=== PATIENT | male | born 1935 | race Caucasian/White ===

== ENCOUNTER 2018-05-30 19:29 | Observation (INO) | payer OTHER, MEDICARE ==
[~2018-05-30] VITALS: Ht 180.3 cm; Wt 73.2 kg
[2018-05-30] MEDS ORDERED: TETANUS,DIPTH,PERTUSS P/F (BOOSTRIX) 0.5 ML VIAL IM ONE (19:47)
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
[2018-05-30] MEDS ORDERED: RECEIVED CONTRAST (Hold Metformin) IV SCH (20:15)
[2018-05-30] MEDS ORDERED: NS 250 ML (IVPB) BAG IV ONE (20:15)
[2018-05-30] MEDS ORDERED: IOHEXOL 350 MG/ML 100 ML (OMNIPAQUE 350) VIAL IV ONE (20:15)
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
[2018-05-30 20:24] LABS: HEMOGLOBIN 13.1 G/DL (13.3-17.7); MEAN PLATELET VOLUME 9.4 FL (7.4-10.4); RED BLOOD COUNT 4.33 10^6/uL (4.35-5.85); RED CELL DISTRIBUTION WIDTH 13.6 % (10.0-14.5); WHITE BLOOD COUNT 10.1 10^3/uL (4.3-11.0)
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
[2018-05-30 20:37] LABS: FIBRIN DEGRADATION PRODUCTS 2.35 UG/ML (0.00-0.49); INR 1.1 (0.8-1.4); PROTHROMBIN TIME PATIENT 14.3 SEC (12.2-14.7)
[2018-05-30 20:39] LABS: ABG OXYGEN SATURATION 99 % (94-100); ABG PO2 112 MMHG (79-93); ABG TCO2 19.3 MMOL/L (21.0-31.0)
[2018-05-30 20:41] LABS: ABG PCO2 16 MMHG (35-45); ABG PH 7.67 (7.37-7.43); ALLENS TEST YES-POS; INSPIRED O2 2L
[2018-05-30 20:42] LABS: PATIENT TEMP 99.1; VENTILATOR NO
[2018-05-30 20:42] LABS: BILIRUBIN,URINE NEGATIVE (NEGATIVE); CLARITY,URINE CLEAR; COLOR,URINE YELLOW; GLUCOSE, URINE (UA) NEGATIVE (NEGATIVE); KETONES,URINE 2+ (NEGATIVE); LEUKOCYTE ESTERASE ,URINE 1+ (NEGATIVE); NITRITE,URINE NEGATIVE (NEGATIVE); PH,URINE 9 (5-9); PROTEIN,URINE 1+ (NEGATIVE); UROBILINOGEN,URINE NORMAL (NORMAL)
[2018-05-30 20:43] LABS: ALANINE AMINOTRANSFERASE 19 U/L (0-55); ALBUMIN 3.7 GM/DL (3.2-4.5); ALKALINE PHOSPHATASE 75 U/L (40-136); BILIRUBIN,DIRECT 0.3 MG/DL (0.0-0.3); BILIRUBIN,INDIRECT 0.3 MG/DL; BILIRUBIN,TOTAL 0.6 MG/DL (0.1-1.0); BUN/CREATININE RATIO 19; CARBON DIOXIDE 17 MMOL/L (21-32); CHLORIDE 108 MMOL/L (98-107); CREATININE SERUM 0.86 MG/DL (0.60-1.30); GFR ESTIMATED > 60; GLUCOSE 115 MG/DL (70-105); MAGNESIUM 1.8 MG/DL (1.8-2.4); PHOSPHORUS 1.1 MG/DL (2.3-4.7); POTASSIUM 3.4 MMOL/L (3.6-5.0); SODIUM 138 MMOL/L (135-145); TOTAL PROTEIN 6.6 GM/DL (6.4-8.2)
[2018-05-30] MEDS ORDERED: fentaNYL INJECTION 100 MCG/2 ML AMP IVP STA ×2 (20:48→21:06)
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
[2018-05-30 21:00] LABS: AMPHETAMINE SCREEN, URINE NEGATIVE (NEGATIVE); BACTERIA,URINE NEGATIVE /HPF; BARBITURATE SCREEN URINE NEGATIVE (NEGATIVE); BENZODIAZEPINES SCREEN URINE NEGATIVE (NEGATIVE); CANNABINOID SCREEN, URINE NEGATIVE (NEGATIVE); COCAINE SCREEN URINE NEGATIVE (NEGATIVE); METHADONE STAT NEGATIVE (NEGATIVE); METHAMPHETAMINE SCREEN URINE S NEGATIVE (NEGATIVE); OPIATE SCREEN URINE NEGATIVE (NEGATIVE); OXYCODONE STAT NEGATIVE (NEGATIVE); PROPOXYPHENE STAT NEGATIVE (NEGATIVE); TRICYCLIC ANTIDEPRESSANTS SCRE NEGATIVE (NEGATIVE); WBC,URINE 0-2 /HPF
[2018-05-30] MEDS ORDERED: fentaNYL INJECTION 100 MCG/2 ML AMP IVP PRN (21:30)
[2018-05-30] MEDS ORDERED: HYDROcodone/APAP 5 MG/325 MG (LORTAB) TAB PO PRN (21:30)
[2018-05-30] MEDS ORDERED: ONDANSETRON 4 MG/2 ML (SDV) Z0FRAN IVP PRN (21:30)
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
[2018-05-30] MEDS ORDERED: LORazepam INJ 2 MG/ML (ATIVAN) VIAL IVP ONE (22:00)
[2018-05-31] VITALS (13 sets, daily range): BP systolic 120–150; BP diastolic 64–93
[2018-05-31] MEDS ORDERED: LACTATED RINGERS 1,000 ML IV SCH (01:15)
[2018-05-31] MEDS ORDERED: MAGNESIUM 1 GM/100 ML IVPB 100 ML IV SCH (06:00)
[2018-05-31] MEDS ORDERED: POTASSIUM CL 10MEQ/50ML IVPB 50 ML IV SCH (06:00)
[2018-05-31] MEDS ORDERED: KCL 20 MEQ TAB (K-DUR) PO SCH (06:00)
[2018-05-31 06:34] LABS: BASOPHILS % (AUTO) 0 % (0-10); EOSINOPHILS % (AUTO) 0 % (0-10); HEMATOCRIT 39 % (40-54); HEMOGLOBIN 12.8 G/DL (13.3-17.7); LYMPHOCYTES # (AUTO) 0.9 X 10^3 (1.0-4.0); LYMPHOCYTES % (AUTO) 9 % (12-44); MEAN CORPUSCULAR HEMOGLOBIN 30 PG (25-34); MEAN CORPUSCULAR HGB CONC 33 G/DL (32-36); MEAN CORPUSCULAR VOLUME 93 FL (80-99); MEAN PLATELET VOLUME 9.7 FL (7.4-10.4); MONOCYTES # (AUTO) 1.2 X 10^3 (0.0-1.0); MONOCYTES % (AUTO) 11 % (0-12); NEUTROPHILS # (AUTO) 8.2 X 10^3 (1.8-7.8); NEUTROPHILS % (AUTO) 80 % (42-75); PLATELET COUNT 245 10^3/uL (130-400); RED BLOOD COUNT 4.21 10^6/uL (4.35-5.85); RED CELL DISTRIBUTION WIDTH 13.5 % (10.0-14.5); WHITE BLOOD COUNT 10.3 10^3/uL (4.3-11.0)
[2018-05-31 06:53] LABS: BUN/CREATININE RATIO 17; CALCIUM 8.9 MG/DL (8.5-10.1); CARBON DIOXIDE 21 MMOL/L (21-32); CHLORIDE 108 MMOL/L (98-107); CREATININE SERUM 0.75 MG/DL (0.60-1.30); GFR ESTIMATED > 60; GLUCOSE 116 MG/DL (70-105); PHOSPHORUS 4.3 MG/DL (2.3-4.7); SODIUM 139 MMOL/L (135-145)
[2018-05-31] MEDS ORDERED: TRAM50TA2 PO (11:25)
--- NOTE | 2018-05-31 11:26 | Discharge Inst-Simple/Standard ---
Discharge Inst-Standard Discharge Medications New, Converted or Re-Newed RX: RX on Chart Patient Instructions/Follow Up Plan of Care/Instructions/FU: Right wrist to be kept splinted and elevated as much as possible. Follow-up in a week Activity as Tolerated: Yes Discharge Diet: No Restrictions THERESA LLAMAS MD May 31, 2018 11:26
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
== END 2018-05-31 11:25 | disposition home or self-care (01) ==
LOC: EDUNIT# 19:29 → ER 19:31 → UNDOADMOB 21:23 → 4TH 21:23 → ICU 21:23
PROVIDERS: ADMIT Surgery; ATTEND Surgery
DX: S52.601A Unspecified fracture of lower end of right ulna, initial encounter for closed fracture (principal); S00.83XA Contusion of other part of head, initial encounter; S06.0X1A Concussion with loss of consciousness of 30 minutes or less, initial encounter; S66.912A Strain of unspecified muscle, fascia and tendon at wrist and hand level, left hand, initial encounter; S00.531A Contusion of lip, initial encounter; S00.33XA Contusion of nose, initial encounter; V49.59XA Passenger injured in collision with other motor vehicles in traffic accident, initial encounter
CPT/HCPCS: 36415; 36600; 51702; 70450; 71045; 71260; 72125; 72170; 74177; 80048; 80076; 80306; 80320; 81000; 82805; 83605; 83735; 84100; 84484; 85025; 85027; 85379; 85384; 85610; 85730; 86850; 86900; 86901; 86920; 87081; 90471; 90715; 93041; 96374; 96375; 99291; 99292; G0378

== ENCOUNTER 2018-10-20 17:28 | Inpatient (IN) | payer MEDICARE, OTHER ==
[~2018-10-20] VITALS: Ht 180.3 cm; Wt 79.0 kg
[~2018-10-20 17:28] MED LIST: TRAM50TA2 PO
[2018-10-20] MEDS ORDERED: fentaNYL INJECTION 100 MCG/2 ML AMP ONE (17:45)
[2018-10-20 17:46] LABS: BASOPHILS % (AUTO) 0 % (0-10); EOSINOPHILS # (AUTO) 0.3 10^3/uL (0.0-0.3); EOSINOPHILS % (AUTO) 2 % (0-10); HEMATOCRIT 42 % (40-54); HEMOGLOBIN 13.5 G/DL (13.3-17.7); LYMPHOCYTES # (AUTO) 1.5 X 10^3 (1.0-4.0); LYMPHOCYTES % (AUTO) 14 % (12-44); MEAN CORPUSCULAR HEMOGLOBIN 30 PG (25-34); MEAN CORPUSCULAR HGB CONC 32 G/DL (32-36); MEAN CORPUSCULAR VOLUME 92 FL (80-99); MEAN PLATELET VOLUME 9.6 FL (7.4-10.4); MONOCYTES # (AUTO) 1.1 X 10^3 (0.0-1.0); MONOCYTES % (AUTO) 10 % (0-12); NEUTROPHILS # (AUTO) 8.2 X 10^3 (1.8-7.8); NEUTROPHILS % (AUTO) 74 % (42-75); PLATELET COUNT 321 10^3/uL (130-400); RED CELL DISTRIBUTION WIDTH 13.3 % (10.0-14.5); WHITE BLOOD COUNT 11.2 10^3/uL (4.3-11.0)
[2018-10-20] MEDS ORDERED: fentaNYL INJECTION 100 MCG/2 ML AMP IVP ONE ×3 (18:00→20:15)
[2018-10-20 18:05] LABS: ALANINE AMINOTRANSFERASE 26 U/L (0-55); ALBUMIN 3.9 GM/DL (3.2-4.5); ALKALINE PHOSPHATASE 81 U/L (40-136); BILIRUBIN,TOTAL 0.6 MG/DL (0.1-1.0); BUN/CREATININE RATIO 19; CALCIUM 9.5 MG/DL (8.5-10.1); CARBON DIOXIDE 24 MMOL/L (21-32); CHLORIDE 107 MMOL/L (98-107); CREATININE SERUM 0.94 MG/DL (0.60-1.30); GFR ESTIMATED > 60; GLUCOSE 129 MG/DL (70-105); POTASSIUM 3.6 MMOL/L (3.6-5.0); SODIUM 141 MMOL/L (135-145); TOTAL PROTEIN 6.9 GM/DL (6.4-8.2)
--- NOTE | 2018-10-20 18:23 | ED Trauma-Multisystem ---
General Chief Complaint: Trauma-Non Activation Stated Complaint: FALL Nursing Triage Note: PT BROUGHT IN BY [facility] WITH COMPLAINT OF FALL. 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 PT FELL APPROX 6 FT. PT IS COMPLAINING OF RIGHT SIDE HIP PAIN AND RIGHT SIDE CHEST WALL PAIN WHEN HE BREATHES. PT DENIES HITTING HEAD, NECK PAIN, OR LOC. PT WAS GIVEN 50MCG FENTANYL BY EMS Source of Information: Patient, EMS Exam Limitations: No Limitations History of Present Illness Date Seen by Provider: Oct 20, 2018 Time Seen by Provider: 17:25 Initial Comments 82-year-old male who was brought to the emergency room by [facility] with complaints of right hip pain and right chest wall pain after falling 4-5 feet off of his tractor step landing on his right side. He denies striking his head, loss of consciousness, head or neck pain. He does have obvious shortening to the right lower extremity and external rotation. He was given 50 g of fentanyl by EMS that improved his pain rating it initially 9 out of 10 and improved to 4 out of 10. He is alert and oriented on arrival to the emergency room. Occurred: Just Prior to Arrival Pain/Injury Location: Chest (right chest wall), Lower Extremity (right hip pain ) Loss of Consciousness: No Loss of Consciousness Allergies and Home Medications Allergies Coded Allergies: No Known Drug Allergies (Unverified , 03/31/16) Home Medications Tramadol HCl 50 Mg Tablet, 50 MG PO Q12H PRN for PAIN-MILD TO MODERATE Prescribed by: THERESA LLAMAS on 05/31/18 1125 Patient Home Medication List Home Medication List Reviewed: Yes Review of Systems Review of Systems Constitutional: see HPI; No chills, No fever Respiratory: see HPI, other (right chest wall tenderness) Musculoskeletal: see HPI, joint pain (right hip pain) All Other Systems Reviewed Negative Unless Noted: Yes Past Lltqeem-Furnzw-Bzmpkv Hx Past Med/Social Hx: Reviewed Nursing Past Med/Soc Hx Patient Social History Alcohol Use: Denies Use Recreational Drug Use: No Smoking Status: Never a Smoker 2nd Hand Smoke Exposure: No Recent Foreign Travel: No Contact w/Someone Who Travel: No Recent Infectious Disease Expo: No Recent Hopitalizations: No Immunizations Up To Date Tetanus Booster (TDap): Less than 5yrs PED Vaccines UTD: No Date of Influenza Vaccine: May 16, 2018 Seasonal Allergies Seasonal Allergies: No Past Medical History Surgeries: Yes Appendectomy, Prostatectomy Respiratory: No Cardiac: No Neurological: No Reproductive Disorders: No Genitourinary: Yes Prostate Problems, Kidney Stones Gastrointestinal: No Musculoskeletal: Yes Arthritis Endocrine: No HEENT: Yes Hearing Impairment: Hard of Hearing Cancer: Yes Prostate Did You Recieve Any Treatments: Yes What Type of Treatment Did You: Radiation, Surgical Intervention Psychosocial: No Integumentary: No Blood Disorders: No Family Medical History Reviewed Nursing Family Hx No Pertinent Family Hx Physical Exam Vital Signs Vital Signs - First Documented 10/20/18 10/20/18 17:30 19:36 Temp 97.7 Pulse 86 Resp 16 B/P (MAP) 146/75 (98) Pulse Ox 98 O2 Delivery Room Air O2 Flow Rate 2.00 Height, Weight, BMI Height: 5'8.00" Weight: 170lbs. 7.0oz. 77.279060ou; 22.5 BMI Method:Stated General Appearance: No Apparent Distress, WD/WN Head: No Evidence of Injury Cardiovascular: Regular Rate, Rhythm, No Edema, No Gallop, No JVD, No Murmur, Normal Peripheral Pulses Respiratory: Chest Non Tender, Lungs Clear, Normal Breath Sounds, No Accessory Muscle Use, No Respiratory Distress Extremity: Normal Capillary Refill, Pelvis Stable (right hip pain, obvious external rotation and shortening of the right lower extremity. Normal distal pulses are present.), Other Neurologic/Psychiatric: Alert, Oriented x3, Normal Mood/Affect Skin: Normal Color, Warm/Dry Kaitlin Coma Score Best Eye Response ([place]): (4) Open Spontaneously Best Verbal Response ([place]): (5) Oriented Best Motor Response ([place]): (6) Obeys Commands Kaitlin Total: 15 Progress/Results/Core Measures Results/Orders Lab Results Laboratory Tests Test 10/20/18 17:35 Range/Units White Blood Count 11.2 H 4.3-11.0 10^3/uL Red Blood Count 4.54 4.35-5.85 10^6/uL Hemoglobin 13.5 13.3-17.7 G/DL Hematocrit 42 40-54 % Mean Corpuscular Volume 92 80-99 FL Mean Corpuscular Hemoglobin 30 25-34 PG Mean Corpuscular Hemoglobin Concent 32 32-36 G/DL Red Cell Distribution Width 13.3 10.0-14.5 % Platelet Count 321 130-400 10^3/uL Mean Platelet Volume 9.6 7.4-10.4 FL Neutrophils (%) (Auto) 74 42-75 % Lymphocytes (%) (Auto) 14 12-44 % Monocytes (%) (Auto) 10 0-12 % Eosinophils (%) (Auto) 2 0-10 % Basophils (%) (Auto) 0 0-10 % Neutrophils # (Auto) 8.2 H 1.8-7.8 X 10^3 Lymphocytes # (Auto) 1.5 1.0-4.0 X 10^3 Monocytes # (Auto) 1.1 H 0.0-1.0 X 10^3 Eosinophils # (Auto) 0.3 0.0-0.3 10^3/uL Basophils # (Auto) 0.0 0.0-0.1 10^3/uL Sodium Level 141 135-145 MMOL/L Potassium Level 3.6 3.6-5.0 MMOL/L Chloride Level 107 98-107 MMOL/L Carbon Dioxide Level 24 21-32 MMOL/L Anion Gap 10 5-14 MMOL/L Blood Urea Nitrogen 18 7-18 MG/DL Creatinine 0.94 0.60-1.30 MG/DL Estimat Glomerular Filtration Rate > 60 BUN/Creatinine Ratio 19 Glucose Level 129 H 70-105 MG/DL Calcium Level 9.5 8.5-10.1 MG/DL Corrected Calcium 9.6 8.5-10.1 MG/DL Total Bilirubin 0.6 0.1-1.0 MG/DL Aspartate Amino Transf (AST/SGOT) 29 5-34 U/L Alanine Aminotransferase (ALT/SGPT) 26 0-55 U/L Alkaline Phosphatase 81 40-136 U/L Total Protein 6.9 6.4-8.2 GM/DL Albumin 3.9 3.2-4.5 GM/DL My Orders Orders - BERNOT,OSWALDO Pelvis With Right Hip 2-3views (10/20/18 17:34) Ribs/Unilateral With Chest (10/20/18 17:34) Comprehensive Metabolic Panel (10/20/18 17:34) Ed Iv/Invasive Line Start (10/20/18 17:34) Cbc With Automated Diff (10/20/18 17:34) Fentanyl Injection (Sublimaze Injection (10/20/18 18:00) Fentanyl Injection (Sublimaze Injection (10/20/18 17:45) Fentanyl Injection (Sublimaze Injection (10/20/18 19:00) Medications Given in ED Current Medications Medications Dose Ordered Sig/Phil Route Start Time Stop Time Status Last Admin Dose Admin Fentanyl Citrate 50 mcg ONCE ONCE IVP 10/20/18 18:00 10/20/18 18:01 DC 10/20/18 17:51 50 MCG Fentanyl Citrate 50 mcg ONCE ONCE IVP 10/20/18 19:00 10/20/18 19:01 DC 10/20/18 19:09 50 MCG Vital Signs/I&O 10/20/18 10/20/18 17:30 19:36 Temp 97.7 Pulse 86 Resp 16 B/P (MAP) 146/75 (98) Pulse Ox 98 96 O2 Delivery Room Air Nasal Cannula O2 Flow Rate 2.00 Blood Pressure Mean: 98 Progress Progress Note : Time: 19:10 Progress Note I have seen and evaluated the patient. I've informed him of his imaging studies. I have discussed the case with Dr. Demarco at this time and he agrees consult on the patient with an admission to the hospitalist. He plans to operate in the morning. He reports he will be coming to see the patient tonight in the hospital. 1919: I have discussed the case with Dr. Hinkle and he agrees to accept the patient to his services. Diagnostic Imaging Diagonstic Imaging: Xray Plain Films/CT/US/NM/MRI: chest, pelvis, hip Comments [facility] [place], [place] NAME: MATTHEW ORTIZ [facility] REC#: [id number] PT STATUS: REG ER : 1935 PHYSICIAN: OSWALDO FERRO ADMIT DATE: 10/20/18/ER Draft Date of Exam:10/20/18 PELVIS WITH RIGHT HIP 2-3VIEWS INDICATION: Fall with right hip pain. FINDINGS: There is a comminuted intertrochanteric fracture demonstrated of the right proximal femur. The bones are diffusely osteopenic. There is no diastasis of the SI joint or the pubic symphysis. The pelvic ring appears intact. The proximal left humeral fracture is evident. IMPRESSION: 1. Comminuted acute intertrochanteric right proximal femoral fracture without dislocation. 2. 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 Dictated on workstation # [id number] Dict: 10/20/181826 Trans: 10/20/18 1840 [facility] [id number] Interpreted by: CHERYL ARMSTRONG MD Electronically signed by: [place], [place] NAME: MATTHEW ORTIZ [facility] REC#: [id number] PT STATUS: REG ER : 1935 PHYSICIAN: OSWALDO FERRO ADMIT DATE: 10/20/18/ER Draft Date of Exam:10/20/18 RIBS/UNILATERAL WITH CHEST INDICATION: Right rib pain post fall. TECHNIQUE: Single view chest with 4 views right ribs 6:08 PM. CORRELATION STUDY: Chest 05/30/2018 FINDINGS: Heart size and vasculature within normal limits. Calcification of the aortic arch, mildly tortuous course of the thoracic aorta. Chronic appearing changes of the lung parenchyma without evidence for significant infiltrate, effusion or pneumothorax. There is subtle nondisplaced right lateral eighth and perhaps ninth rib fractures. Rather advanced degenerative changes about the right shoulder. Calcification of the right axillary region as well as over the humeral head. Calcification of the right mid abdomen, nonspecific. IMPRESSION: 1. Negative for acute cardiopulmonary abnormality. 2. Relatively nondisplaced right anterolateral eighth and perhaps ninth rib fracture deformity. Dictated on workstation # [id number] Dict: 10/20/181827 Trans: 10/20/18 185 [facility] [id number] Interpreted by: FELIPE MURCIA DO Electronically signed by: Reviewed: Reviewed by [place] Departure Communication (Admissions) Time/Spoke to Admitting Phy: 19:20 Dr. HINKLE Time/Spoke to Consulting Phy: 19:10 Dr. Demarco Impression Primary Impression: Closed right hip fracture Qualified Codes: S72.001A - Fracture of unspecified part of neck of right femur, initial encounter for closed fracture Additional Impression: Rib fractures Qualified Codes: S22.41XA - Multiple fractures of ribs, right side, initial encounter for closed fracture Disposition: 01 HOME, SELF-CARE Condition: Stable/Unchanged Admissions Decision to Admit Reason: Admit from ER (Trauma) Decision to Admit/Date: Oct 20, 2018 Time/Decision to Admit Time: 19:00 Departure-Patient Inst. Referrals: MÓNICA GRANADO DO (PCP/Family) Primary Care Physician OSWALDO FERRO Oct 20, 2018 18:23
--- NOTE | 2018-10-20 18:40 | Diagnostic Imaging Report ---
INDICATION: Fall with right hip pain. FINDINGS: There is a comminuted intertrochanteric fracture demonstrated of the right proximal femur. The bones are diffusely osteopenic. There is no diastasis of the SI joint or the pubic symphysis. The pelvic ring appears intact. The proximal left humeral fracture is evident. IMPRESSION: 1. Comminuted acute intertrochanteric right proximal femoral fracture without dislocation. 2. 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 Dictated by: Dictated on workstation # [id number]
--- NOTE | 2018-10-20 19:00 | Diagnostic Imaging Report ---
INDICATION: Right rib pain post fall. TECHNIQUE: Single view chest with 4 views right ribs 6:08 PM. CORRELATION STUDY: Chest 05/30/2018 FINDINGS: Heart size and vasculature within normal limits. Calcification of the aortic arch, mildly tortuous course of the thoracic aorta. Chronic appearing changes of the lung parenchyma without evidence for significant infiltrate, effusion or pneumothorax. There is subtle nondisplaced right lateral eighth and perhaps ninth rib fractures. Rather advanced degenerative changes about the right shoulder. Calcification of the right axillary region as well as over the humeral head. Calcification of the right mid abdomen, nonspecific. IMPRESSION: 1. Negative for acute cardiopulmonary abnormality. 2. Relatively nondisplaced right anterolateral eighth and perhaps ninth rib fracture deformity. Dictated by: Dictated on workstation # [id number]
[2018-10-20 20:48] VITALS: BP 136/67
--- NOTE | 2018-10-20 20:48 | NUR ---
MATTHEW ORTIZ admitted to room 432-1, with an admitting diagnosis of RIGHT HIP FRACTURE, RIGHT RIB FRACTURE 8TH & 9TH, on 10/20/18 from ED via [facility], accompanied by STAFF AND FAMILY. MATTHEW ORTIZ introduced to surroundings, call light, bed controls, phone, TV, temperature control, lights, meal times, smoking policy, visitor policy, side rail policy, bathrooms and showers. Patient Rights given to patient in the handbook.MATTHEW ORTIZ verbalizes understanding that [facility] is not responsible for the loss or damage to any personal effects or valuables that are kept in the patients posession during their hospitalization.
[2018-10-20] MEDS: morphine INJ 10 MG/ML 1ML (SYR OR VIAL) IVP PRN (21:21)
--- NOTE | 2018-10-20 21:38 | Consultation ---
History of Present Illness History of Present Illness Patient Consulted On(aubrey/time) 10/20/18 21:32 Date Seen by Provider: Oct 20, 2018 Time Seen by Provider: 21:34 Reason for Visit: Fall, right hip fracture History of Present Illness Fell approximately 6 ft landing on right hip and right shoulder. Presented to the ER per EMS with complaints of right hip pain and right chest wall pain. Xrays revealed a right hip fracture. Allergies and Home Medications Allergies Coded Allergies: No Known Drug Allergies (Unverified , 03/31/16) Home Medications Tramadol HCl 50 Mg Tablet, 50 MG PO Q12H PRN for PAIN-MILD TO MODERATE Prescribed by: THERESA LLAMAS on 05/31/18 1125 Patient Home Medication List Home Medication List Reviewed: Yes Past Eufvrls-Fbycsg-Mksobm Hx Patient Social History Alcohol Use: Denies Use Recreational Drug Use: No Smoking Status: Never a Smoker 2nd Hand Smoke Exposure: No Recent Foreign Travel: No Contact w/Someone Who Travel: No Recent Infectious Disease Expo: No Recent Hopitalizations: No Immunizations Up To Date Tetanus Booster (TDap): Less than 5yrs PED Vaccines UTD: No Date of Influenza Vaccine: May 16, 2018 Seasonal Allergies Seasonal Allergies: No Past Medical History Surgeries: Yes Appendectomy, Prostatectomy Respiratory: No Cardiac: No Neurological: No Reproductive Disorders: No Genitourinary: Yes Prostate Problems, Kidney Stones Gastrointestinal: No Musculoskeletal: Yes Arthritis Endocrine: No HEENT: Yes Hearing Impairment: Hard of Hearing Cancer: Yes Prostate Did You Recieve Any Treatments: Yes What Type of Treatment Did You: Radiation, Surgical Intervention Psychosocial: No Integumentary: No Blood Disorders: No Family Medical History Patient reports no known family medical history. No Pertinent Family Hx Review of Systems-General Constitutional: no symptoms reported EENTM: no symptoms reported Respiratory: other (right chest pain with deep inspiration) Cardiovascular: no symptoms reported Gastrointestinal: no symptoms reported Genitourinary: no symptoms reported Musculoskeletal: joint pain, joint swelling, other (right hip pain) Skin: no symptoms reported Psychiatric/Neurological: No Symptoms Reported Physical Exam-General Problems Physical Exam Vital Signs Vital Signs - First Documented 10/20/18 10/20/18 17:30 19:36 Temp 97.7 Pulse 86 Resp 16 B/P (MAP) 146/75 (98) Pulse Ox 98 O2 Delivery Room Air O2 Flow Rate 2.00 Capillary Refill : Less Than 3 Seconds General Appearance: WD/WN, no apparent distress HEENT: PERRL/EOMI, normal ENT inspection Neck: non-tender, full range of motion, supple, normal inspection Respiratory: chest non-tender, no respiratory distress, no accessory muscle use Cardiovascular: regular rate, rhythm, no edema, no JVD Peripheral Pulses: 2+ Dorsalis Pedis (R), 2+ Left Dors-Pedis (L), 2+ Radial Pulses (R), 2+ Radial Pulses (L) Gastrointestinal: non tender, soft, no pulsatile mass Extremities: no calf tenderness, normal capillary refill, other (shortening and external rotation of RLE, tenderness and swelling right hip) Neurologic/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 See orders for further. Dr. Lucas for medical management Admission Status: Inpatient Order (span 2 midnights) Reason for Inpatient Admission: right hip fracture Clinical Quality Measures DVT/VTE Risk/Contraindication: Risk Factor Score Per Nursin RFS Level Per Nursing on Admit: 4+=Very High ENOC BELL APRN Oct 20, 2018 21:37
[2018-10-20] MEDS ORDERED: PROMETHAZINE INJ 25 MG/ML (PHENERGAN) AMP IVP PRN (21:45)
[2018-10-20] MEDS ORDERED: ONDANSETRON 4 MG/2 ML (SDV) Z0FRAN IVP PRN (21:45)
[2018-10-20] MEDS: D5 1/2 NS 1000 ML IV SOLUTION 1,000 ML IV SCH (22:02)
[2018-10-21] VITALS (11 sets, daily range): BP systolic 92–139; BP diastolic 56–74
[2018-10-21 06:29] LABS: BASOPHILS % (AUTO) 0 % (0-10); EOSINOPHILS % (AUTO) 0 % (0-10); HEMATOCRIT 39 % (40-54); HEMOGLOBIN 12.6 G/DL (13.3-17.7); LYMPHOCYTES # (AUTO) 0.9 X 10^3 (1.0-4.0); LYMPHOCYTES % (AUTO) 8 % (12-44); MEAN CORPUSCULAR HEMOGLOBIN 30 PG (25-34); MEAN CORPUSCULAR HGB CONC 32 G/DL (32-36); MEAN CORPUSCULAR VOLUME 94 FL (80-99); MEAN PLATELET VOLUME 9.8 FL (7.4-10.4); MONOCYTES # (AUTO) 1.9 X 10^3 (0.0-1.0); MONOCYTES % (AUTO) 16 % (0-12); NEUTROPHILS % (AUTO) 76 % (42-75); PLATELET COUNT 263 10^3/uL (130-400); RED CELL DISTRIBUTION WIDTH 13.3 % (10.0-14.5); WHITE BLOOD COUNT 11.9 10^3/uL (4.3-11.0)
[2018-10-21] MEDS: HYDROcodone/APAP 10 MG/325 MG (LORTAB) TAB PO PRN ×2 (06:37→11:55)
[2018-10-21 06:49] LABS: ALANINE AMINOTRANSFERASE 24 U/L (0-55); ALBUMIN 3.7 GM/DL (3.2-4.5); ALKALINE PHOSPHATASE 74 U/L (40-136); BUN/CREATININE RATIO 21; CALCIUM 9.2 MG/DL (8.5-10.1); CARBON DIOXIDE 26 MMOL/L (21-32); CHLORIDE 105 MMOL/L (98-107); CREATININE SERUM 0.86 MG/DL (0.60-1.30); GFR ESTIMATED > 60; GLUCOSE 140 MG/DL (70-105); SODIUM 139 MMOL/L (135-145); TOTAL PROTEIN 6.6 GM/DL (6.4-8.2)
[2018-10-21] MEDS ORDERED: ASPI325T32 PO (08:48)
[2018-10-21] MEDS ORDERED: BISA5TAB8 PO (08:48)
--- NOTE | 2018-10-21 08:49 | NUR ---
SPOKE WITH THE PATIENT ABOUT MEDICATIONS. HE STATES HE DOES NOT TAKE ANYTHING REGULARLY OR PRESCRIPTION. HE USES ASPIRIN NEEDED FOR PAIN AND OCCASIONALLY TAKES A LAXATIVE OTC.
[2018-10-21] MEDS: D5 1/2 NS 1000 ML IV SOLUTION 1,000 ML IV SCH (09:36)
--- NOTE | 2018-10-21 10:11 | History & Physical-Hospitalist ---
History of Present Illness HPI/Chief Complaint The patient is an 82-year-old former. 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 He has a large tractor and gets up into it on a ramp. There is a handrail but also a gap and he missed it and fell awkwardly landing on his hip. His health has otherwise been good. Date Seen 10/21/18 Time Seen by a Provider: 10:05 Attending Physician Erik Hinkle MD PCP Fermin Lynn DO Referring Physician Date of Admission Oct 20, 2018 at 19:50 Home Medications & Allergies Home Medications Reviewed patient Home Medication Reconciliation performed by pharmacy medication reconciliations automotive tire technician and/or nursing. Patients Allergies have been reviewed. Allergies Allergies Coded Allergies No Known Drug Allergies (Bbwunizvqk07/1/16) Past Zagicex-Xfgdhv-Tucwrx Hx Past Med/Social Hx: Reviewed Nursing Past Med/Soc Hx Patient Social History Alcohol Use: Denies Use Recreational Drug Use: No Smoking Status: Never a Smoker 2nd Hand Smoke Exposure: No Recent Foreign Travel: No Contact w/other who traveled: No Recent Hopitalizations: No Recent Infectious Disease Expo: No Immunizations Up To Date Tetanus Booster (TDap): Less than 5yrs Pediatric: No Date of Influenza Vaccine: May 16, 2018 Seasonal Allergies Seasonal Allergies: No Past Medical History Surgeries: Appendectomy, Prostatectomy Reproductive: No Genitourinary: Prostate Problems, Kidney Stones Musculoskeletal: Arthritis Hearing Impairment: Hard of Hearing Cancer: Prostate Did You Recieve Any Treatments: Yes What Type of Treatment Did You: Radiation, Surgical Intervention History of Blood Disorders: No Family History Reviewed Nursing Family Hx Patient reports no known family medical history. No Pertinent Family Hx Review of Systems Constitutional: see HPI EENTM: no symptoms reported Respiratory: no symptoms reported Cardiovascular: no symptoms reported Gastrointestinal: no symptoms reported Genitourinary: no symptoms reported Musculoskeletal: no symptoms reported Skin: no symptoms reported Psychiatric/Neurological: No Symptoms Reported Physical Exam Physical Exam Vital Signs Vital Signs - First Documented 10/20/18 10/20/18 17:30 19:36 Temp 97.7 Pulse 86 Resp 16 B/P (MAP) 146/75 (98) Pulse Ox 98 O2 Delivery Room Air O2 Flow Rate 2.00 Capillary Refill : Less Than 3 SecondsLess Than 3 Seconds Height, Weight, BMI Height: 5'11.00" Weight: 174lbs. 3.0oz. 79.838755hm; 24.3 BMI Method:Stated General Appearance: No Apparent Distress, WD/WN Eyes: Bilateral Eye Normal Inspection HEENT: Normal ENT Inspection Neck: Normal Inspection Respiratory: Chest Non Tender, Lungs Clear, Normal Breath Sounds Cardiovascular: Regular Rate, Rhythm, Other Gastrointestinal: Normal Bowel Sounds, No Organomegaly, No Pulsatile Mass Back: Normal Inspection, No CVA Tenderness Extremity: Normal Capillary Refill, Normal Inspection Neurologic/Psychiatric: Alert, Oriented x3, No Motor/Sensory Deficits, Normal Mood/Affect Skin: Normal Color, Warm/Dry Results Results/Procedures Labs Laboratory Tests 10/20/18 17:35 10/21/18 06:12 Patient resulted labs reviewed. Assessment/Plan Admission Diagnosis Fracture right hip Admission Status: Inpatient Order (span 2 midnights) Reason for Inpatient Admission: Operative repair right hip fracture Clinical Quality Measures DVT/VTE Risk/Contraindication: Risk Factor Score Per Nursin RFS Level Per Nursing on Admit: 4+=Very High ERIK HINKLE MD Oct 21, 2018 10:11
--- NOTE | 2018-10-21 14:48 | NUR ---
IRF Evaluation: Order received to evaluate patient for the ARU. Chart reviewed and it appears patient is to undergo IM nailing of R hip. Will evaluate once surgical intervention concludes and therapy evaluates. Thank you for this referral. Addendum: 10/23/18 at 1010 by SEPTEMBER [facility] 10/22/18 1410 Pre certification initiated with [employer]. Clinical information submitted for review. Awaiting determination. Addendum: 10/24/18 at 1003 by SEPTEMBER R [facility] Received denial from [facility]. "Denial is based on patient's acute delirium and low grade temperature; his needs can be met within current setting." Dr. Ortiz notified. Once patient becomes medically stable, re-submission of pre certification to [facility] will be completed. Will continue to follow.
[2018-10-21] MEDS ORDERED: NEO/POLY/BAC (NEOSPORIN) OINT 15 GM TUBE ONE (15:31)
--- NOTE | 2018-10-21 15:52 | NUR ---
PT OFF FLOOR TO SURGERY AT THIS TIME.
[2018-10-21] MEDS ORDERED: BUPIVACAINE 0.5% 30 ML (SENSORCAINE) VIAL ONE (15:56)
[2018-10-21] MEDS ORDERED: fentaNYL INJECTION 100 MCG/2 ML AMP ONE (15:58)
[2018-10-21] MEDS: LACTATED RINGERS 1,000 ML IV PRN ×2 (16:00→17:15)
[2018-10-21] MEDS ORDERED: ceFAZolin 2 GM IV Premixed 50 ML IV ONE (16:00)
[2018-10-21] MEDS ORDERED: MIDAZOLAM 2 MG/2 ML (VERSED) VIAL ONE (16:11)
[2018-10-21] MEDS ORDERED: BISACODYL 5 MG (DULCOLAX) TABLET PO PRN (16:15)
[2018-10-21] MEDS ORDERED: ASPIRIN E.C. 325 MG (ECOTRIN) TABLET PO PRN (16:15)
[2018-10-21] MEDS ORDERED: LIDOCAINE PF 2% 5 ML (XYLOCAINE) VIAL ONE (16:57)
[2018-10-21] MEDS ORDERED: proPOfol 200 MG/20 ML (DIPRIVAN) VIAL IV ONE ×2 (17:15→17:54)
--- NOTE | 2018-10-21 18:42 | Diagnostic Imaging Report ---
INDICATION: Fluoroscopy during right hip surgery. TIME OF EXAM: 4:56 PM FINDINGS: Fluoroscopy was performed during the performance of a right hip surgery. 118 seconds of fluoroscopy was utilized. Images demonstrate placement of an intramedullary roxy as well as compression screw. Alignment is anatomic. IMPRESSION: Fluoroscopy during right hip surgery. Dictated by: Dictated on workstation # [id number]
--- NOTE | 2018-10-21 18:42 | Progress Note-Post Operative ---
Post-Operative Progess Note Surgeon (s)/Stator Plate Washer (s) Surgeon Shiva Demarco DO Stator Plate Washer: Lauro Bell, [employer]TS [employer] Pre-Operative Diagnosis displaced comminuted right intertrochanteric hip fracture Post-Operative Diagnosis same Procedure & Operative Findings Date of Procedure 10/21/18 Procedure Performed/Findings uneventful right hip intramedullary nailing using synthes TFN Anesthesia Type general with fasciailliaca block Estimated Blood Loss Estimated blood loss (mL): 150 Specimens/Packing Specimens Removed none LAURO BELL EXPANSION ENVELOPE MAKER HAND Oct 21, 2018 18:42
[2018-10-21] MEDS ORDERED: morphine INJ 10 MG/ML 1ML (SYR OR VIAL) IVP ONE (19:00)
[2018-10-21] MEDS ORDERED: MEPERIDINE (DEMEROL) INJ 50 MG/ML IVP ONE (19:00)
[2018-10-21] MEDS ORDERED: ONDANSETRON 4 MG/2 ML (SDV) Z0FRAN IVP PRN (19:00)
[2018-10-21] MEDS: ceFAZolin 2 GM IV Premixed 50 ML IV SCH (23:58)
[2018-10-21] MEDS: morphine INJ 10 MG/ML 1ML (SYR OR VIAL) IVP PRN (23:59)
[2018-10-22] VITALS (7 sets, daily range): BP systolic 115–144; BP diastolic 55–68
[2018-10-22] MEDS: D5 1/2 NS 1000 ML IV SOLUTION 1,000 ML IV SCH (00:02)
[2018-10-22] MEDS: KETOROLAC 15 MG/ML VIAL IVP PRN ×2 (00:51→06:39)
--- NOTE | 2018-10-22 01:40 | OPERATIVE REPORT ---
DATE OF SERVICE: 10/21/2018 PREOPERATIVE DIAGNOSIS: Comminuted displaced intertrochanteric fracture, right hip. POSTOPERATIVE DIAGNOSIS: Comminuted displaced intertrochanteric fracture, right hip. PROCEDURE: Intramedullary nailing comminuted displaced intertrochanteric fracture, right hip. SURGEON: Yamila Demarco DO. PLANT MAINTENANCE ENGINEER: BINU Reed. SURGICAL CATHODIC PROTECTION TECHNICIAN DUTIES: Lauro Corbin, surgical attendant, was utilized throughout the entire procedure for patient positioning, soft tissue retraction, assistance in placement of internal fixation device, wound closure, dressing application and the patient transfer. ANESTHESIA: Subarachnoid block with fascia iliaca block. COMPLICATIONS: None. INDICATIONS AND FINDINGS: The patient is an 82-year-old male who was climbing up on a tractor approximately 6 feet in the air. He went to event sales representative a handle, he lost his event sales representative. He slipped and fell approximately 6 feet in the air directly on his right hip. He noted immediate pain and inability to walk and a deformity of his right lower extremity. He was transported to [facility] where x-rays reveal a comminuted displaced intertrochanteric fracture with subtrochanteric extension. DESCRIPTION OF PROCEDURE: The patient was taken to surgery where an intramedullary nailing of the right hip was performed utilizing the Synthes trochanteric fixation nail with a 380 mm x 11 mm cannulated trochanteric fixation nail with 110 mm blade 42 mm distal locking screw. PROCEDURE IN DETAIL: The patient was transferred to the operating room where subarachnoid block was administered. A Ace catheter was then placed. The patient was then placed supine upon the fracture table. The left lower extremity was draped out of the operating field. The right lower extremity was placed in traction and with traction and internal rotation of the hip, near anatomic reduction of the fracture was obtained. A ChloraPrep and sterile drape of the right hip and the right lower extremity was performed. The C-arm image intensifier was used to verify the fracture site and identify locations for incisions. A 3 cm incision was then made proximal to the area of the greater trochanter. The incision was deepened with electrocautery. The tip of the greater trochanter was identified and palpated. A guidepin was then advanced through the tip of the greater trochanter across the fracture site into the femoral shaft. This guidepin placement was verified in the AP and lateral plane. This guidepin was then overdrilled. A roxy was then placed through the proximal femur at the level of the distal femur. The alignment roxy was then verified fluoroscopically and measurements were made indicating the need for a 380 mm roxy. The femoral shaft was then reamed incrementally up to a diameter of 12 mm. The trochanteric fixation nail was then inserted over the alignment roxy down into the area just proximal to the location of the patella. This was impacted into position and again verified fluoroscopically. With the outrigger guide in place, a stab incision was made on the lateral aspect of the thigh. The iliotibial band was divided longitudinally. The drill guide was then placed in the lateral cortex. A guide pin was placed through the lateral femoral cortex across the femoral neck into the central aspect of the femoral head. This placement was verified both in the AP and lateral plane fluoroscopically. The lateral cortex was then overdrilled. With the guidepin in place, this was overreamed to within a proximal 1.5 cm of the medial aspect of the femoral head. A 110 mm helical blade was then impacted into position. The fracture was then compressed. A locking bolt was then placed proximally and satisfactory position of the fracture reduction as well as the placement of the intramedullary roxy was noted. The fluoroscope was then directed distally using the dynamic hole in the distal femur. This location on the lateral thigh was verified. A stab incision was made. A transverse drill hole was then made to the lateral femoral cortex through the dynamic hole and through the medial cortex. A 42 mm locking screw was then inserted. The wounds were irrigated with normal saline solution. The iliotibial band was closed with 0 Vicryl suture. The subcutaneous tissues were closed with 0 and 2-0 Vicryl suture. The skin was closed with stainless steel caroline. Adaptic Neosporin bulky dressings were placed about the right hip and the lateral thigh and proximal and distal incision. The patient was then treated by anesthesia with an ultrasound-guided fascia iliaca block. The patient was then awakened and was transported to recovery (ICU in stable condition). Job ID: [id number] DocumentID: [id number] Dictated Date: 10/21/2018 22:27:23 Pbx Technician Date: 10/22/2018 01:40:04 Dictated By: YAMILA DEMARCO DO
[2018-10-22 06:14] LABS: HEMOGLOBIN 10.5 G/DL (13.3-17.7); MEAN PLATELET VOLUME 9.4 FL (7.4-10.4); RED CELL DISTRIBUTION WIDTH 13.1 % (10.0-14.5); WHITE BLOOD COUNT 9.9 10^3/uL (4.3-11.0)
[2018-10-22] MEDS: ceFAZolin 2 GM IV Premixed 50 ML IV SCH (06:20)
[2018-10-22 06:35] LABS: BUN/CREATININE RATIO 18; CALCIUM 8.5 MG/DL (8.5-10.1); CARBON DIOXIDE 25 MMOL/L (21-32); CHLORIDE 103 MMOL/L (98-107); CREATININE SERUM 0.87 MG/DL (0.60-1.30); GFR ESTIMATED > 60; GLUCOSE 127 MG/DL (70-105); POTASSIUM 4.3 MMOL/L (3.6-5.0); SODIUM 136 MMOL/L (135-145)
--- NOTE | 2018-10-22 07:37 | Progress Note (SOAP) ---
Subjective Date Seen by a Provider: Oct 22, 2018 Time Seen by a Provider: 07:34 Subjective/Events-last exam Currently no complaints, nursing staff reports some drowsiness since surgery. Mild fever last night and this AM. POD 1 s/p IM nailing right hip Objective Exam Vital Signs Date Time Temp Pulse Resp B/P (MAP) Pulse Ox O2 Delivery O2 Flow Rate FiO2 10/22/18 06:39 100.2 10/22/18 04:00 100.2 75 16 115/57 (76) 95 Nasal Cannula 2.00 10/22/18 02:54 92 Room Air 10/22/18 02:00 99.3 10/22/18 01:50 99.3 10/22/18 00:51 101.5 10/22/18 00:00 101.5 83 16 126/60 (82) 93 Nasal Cannula 2.00 10/21/18 22:05 96 Room Air 10/21/18 20:34 Room Air 10/21/18 19:40 97.8 18 95 Room Air 10/21/18 19:35 98.0 64 18 118/58 (78) 93 Nasal Cannula 2.00 10/21/18 19:30 18 95 Room Air 10/21/18 19:20 18 96 Room Air 10/21/18 19:10 18 99 Room Air 10/21/18 19:00 18 98 OxyMask 3 10/21/18 18:51 97.6 14 100 OxyMask 3 10/21/18 14:18 93 Room Air 0.50 10/21/18 12:00 99.0 72 18 128/63 (84) 97 Nasal Cannula 2.00 10/21/18 10:28 93 Nasal Cannula 0.50 10/21/18 08:00 98.0 74 18 139/68 (91) 98 Nasal Cannula 2.00 I & O 10/22/18 07:00 Intake Total 2450 ml Output Total 1100 ml Balance 1350 ml Capillary Refill : Less Than 3 SecondsLess Than 3 Seconds General Appearance: No Apparent Distress Peripheral Pulses: 2+ Dorsalis Pedis (R) Gastrointestinal: non tender, soft Extremity: Normal Capillary Refill, Normal Inspection, No Calf Tenderness, No Pedal Edema Neurologic/Psychiatric: Alert, Oriented x3, No Motor/Sensory Deficits, Normal Mood/Affect Skin: Normal Color, Warm/Dry (dressing to right hip CDI) Results Lab Laboratory Tests 10/22/18 06:10: White Blood Count 9.9, Red Blood Count 3.42L, Hemoglobin 10.5L, Hematocrit 32L, Mean Corpuscular Volume 94, Mean Corpuscular Hemoglobin 31, Mean Corpuscular Hemoglobin Concent 33, Red Cell Distribution Width 13.1, Platelet Count 201, Mean Platelet Volume 9.4, Sodium Level 136, Potassium Level 4.3, Chloride Level 103, Carbon Dioxide Level 25, Anion Gap 8, Blood Urea Nitrogen 16, Creatinine 0.87, Estimat Glomerular Filtration Rate > 60, BUN/Creatinine Ratio 18, Glucose Level 127H, Calcium Level 8.5 Microbiology 10/20/18 MRSA Screen - Final, Complete MRSA not isolated Assessment/Plan Assessment/Plan Assess & Plan/Chief Complaint A: comminuted displaced intertrochanteric right hip fracture Chronic right hip osteoarthritis fall (6 feet) right rib fractures s/p right hip intramedullary nailing fever secondary to poor inspiratory effort acute blood loss anemia P: Niferex started for anemia, Tylenol ordered for fever, Up to chair today. Nursing staff to encourage incentive spirometer. Dr. Lucas for medical management Clinical Quality Measures DVT/VTE Risk/Contraindication: Risk Factor Score Per Nursin RFS Level Per Nursing on Admit: 4+=Very High ENOC BELL APRN Oct 22, 2018 07:37
--- NOTE | 2018-10-22 08:56 | Physical Therapy Evaluation ---
PT Evaluation-General Medical Diagnosis Admission Date Oct 20, 2018 at 19:50 Medical Diagnosis: right hip fx, 8th-9th rib fx Onset Date: Oct 20, 2018 Therapy Diagnosis Therapy Diagnosis: impaired mobility, strength, ROM, endurance Height/Weight Height (Feet): 5 Height (Inches): 11.00 Weight (Pounds): 174 Weight (Ounces): 3.0 Precautions Precautions/Isolations: Fall Prevention, Standard Precautions Weight Bear Status Right Lower Extremity: Right Touch Toe Bearing Left Lower Extremity: Left Full Weight Bearing Referral Physician: Lauro Corbin APRN Reason for Referral: Evaluation/Treatment Medical History Additional Medical History Past Medical History Surgeries: Appendectomy, Prostatectomy Reproductive: No Genitourinary: Prostate Problems, Kidney Stones Musculoskeletal: Arthritis Hearing Impairment: Hard of Hearing Cancer: Prostate Did You Recieve Any Treatments: Yes What Type of Treatment Did You: Radiation, Surgical Intervention Current History Patient had a fall at home, had right hip intramedullary nailing. Reviewed History: Yes Social History Current Living Status: Spouse Entry Into Home: Stairs Without Railing PT Steps Into Home: 1 Patient states he also has one step inside the home. Prior/Core FIM Prior Level of Function Therapy Code Descriptions/Definitions Functional [place] Measure: 0=Not Assessed/NA 4=Minimal Assistance 1=Total Assistance 5=Supervision or Setup 2=Maximal Assistance 6=Modified [place] 3=Moderate Assistance 7=Complete [place] Therapy Quality Codes: 6 Independent with activity with or without an assistive device 5 Patient requires set up or clean up by helper. Patient completes activity by themselves 4 Supervision or touching assist (CGA). [place] provide cues , steadying assist 3 The helper provides less than half the effort to complete the activity 2 The helper provides more than half the effort to complete the activity 1 Dependent. The helper does all the effort to complete an activity 7 Patient refused to complete or attempt activity 9 The patient did not perform the activity before the current illness or injury 88 Not attempted due to Medical conditions or safety concerns Functional Abilities and Goals: Independent: Patient completed the activities by him/herself, with or without an assistive device, with no assistance from a helper. Needed Some Help: Patient needed partial assistance from another person to complete activities. Dependent: A helper completed the activities for the patient. Unknown: Not Applicable: Bed Mobility: 7 Transfers (B,C,W/C) (FIM): 7 Gait: 7 Stairs: 7 Indoor Mobility (Ambulation): Independent Stairs: Independent PT Evaluation-Current Subjective Patient in bed pre tx, agrees to PT, states he has no pain unless his right leg is moved. Pt/Family Goals to be independent at home Objective Patient Orientation: Person, Confused, Place Attachments: Ace Catheter, IV ROM/Strength ROM Lower Extremities LLE WNL, RLE NT Strength Lower Extremities LLE 5/5 gross, RLE NT Neuromuscular (Tone, Coordination, Reflexes) NT Sensory Vision: Functional Hearing: Impaired Sensation Right Lower Extremit: Impaired Sensation Left Lower Extremity: Intact Sensation Lower Extremities Patient has some numbness/decreased sensation on medial leg below the knee. Transfers Therapy Code Descriptions/Definitions Functional [place] Measure: 0=Not Assessed/NA 4=Minimal Assistance 1=Total Assistance 5=Supervision or Setup 2=Maximal Assistance 6=Modified [place] 3=Moderate Assistance 7=Complete [place] Transfers (B, C, W/C) (FIM): 2 Scootin Rollin Supine to/from Sit: 2 Sit to/from Stand: 4 Patient needs max assist for bed mobility, supine <-> sit max assist, sit <-> stand min assist. Cues for hand placement and safety. Patient educated on weight bearing status before standing and he was compliant with it. Gait Mode of Locomotion: Walk Anticipated Mode of Locomotion: Walk Gait (FIM): 1 Distance: 1' Gait Level of Assist: 4 Gait Assistive Device: FWW Comments/Gait Description Patient was able to slide his feet sideways toward the bed about a foot with min assist and staying compliant with his TTWB and using a rolling walker. Balance Sitting Static: Fair Sitting Dynamic: Fair Standing Static: Poor Standing Dynamic: Poor Treatment supine exercises on RLE x10 (AP, HS, QS) Assessment/Needs Patient has impaired mobility, strength, endurance, ROM, post right hip fracture. Patient in bed post tx with nurse call, phone, tray, bed alarm on. Rehab Potential: Fair PT Short Term Goals Short Term Goals Time Frame: October 29, 2018 Transfers (B,C,W/C) (FIM): 4 Gait (FIM): 1 Gait Distance Comment: 20' Gait Level of Assist: 4 Gait Assistive Device: FWW PT Plan Problem List Problem List: Activity Tolerance, Functional Strength, Safety, Balance, Gait, Transfer, Bed Mobility, ROM Treatment/Plan Treatment Plan: Continue Plan of Care Treatment Plan: Bed Mobility, Education, Functional Activity Shant, Functional Strength, Gait, Safety, Therapeutic Exercise, Transfers Treatment Duration: October 29, 2018 Frequency: 11 times per week Estimated Hrs Per Day: .25 hour per day (15-30') Patient and/or Family Agrees t: Yes Safety Risks/Education Patient Education: Gait Training, Transfer Techniques, Reviewed Precautions, Correct Positioning, Safety Issues Teaching Recipient: Patient Teaching Methods: Demonstration, Discussion Response to Teaching: Reinforcement Needed Discharge Recommendations Plan Patient will perform bed mobility and transfer training, balance and endurance training, functional strengthening, stair training, gait training, and education , to improve functional mobility and independence at home. Therapy D/C Recommendations: Acute Rehab, Home w/ Family Support Time/GCodes Time In: 0823 Time Out: 0850 Total Billed Treatment Time: 27 Total Billed Treatment 1 visit EVM 15' FA 12' MADHAVI HOOKS PT Oct 22, 2018 08:56
[2018-10-22] MEDS: IRON POLYSAC 150 MG CAP (NIFEREX) PO SCH ×2 (09:15→16:32)
[2018-10-22] MEDS: POLYETHYLENE GLYCOL 17 GM (MIRALAX) PACK PO SCH ×2 (09:16→20:59)
[2018-10-22] MEDS: ENOXAPARIN 40 MG/0.4 ML (LOVENOX) SYR SC SCH (09:27)
--- NOTE | 2018-10-22 09:42 | Anesthesia-Regional Post-Op ---
Regional Patient Condition Mental Status: Alert, Oriented x3 Circulation: Same as Pre-Op Headache: Absent Sensation: Full Recovery Motor Block: Absent Post Op Complications Complications None Follow Up Care/Instructions Patient Instructions None needed. Anesthesia/Patient Condition Patient is doing well, no complaints, stable vital signs, no apparent adverse anesthesia problems. No complications reported per nursing. JAMIL DREW CRNA Oct 22, 2018 09:42
[2018-10-22] MEDS: morphine INJ 10 MG/ML 1ML (SYR OR VIAL) IVP PRN (10:31)
--- NOTE | 2018-10-22 10:46 | Progress Note-Hospitalist ---
Subjective HPI/CC On Admission Date Seen by Provider: Oct 22, 2018 Time Seen by Provider: 10:15 The patient is an 82-year-old former. 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 He has a large tractor and gets up into it on a ramp. There is a handrail but also a gap and he missed it and fell awkwardly landing on his hip. His health has otherwise been good. Subjective/Events-last exam Pt having real difficulty with right hip fracture pain. PT and OT have just started to work with him. Reviewed labs and Hgb is stable at 10. No BM yet. Very hard of hearing and very difficult to communicate but he is very motivated to get up and around and be able to get well enough to go home. Pt has a history of prostate CA, does have a jasmine catheter in and we will work on resolving any urinary retention that will likely be an issue once the Jasmine catheter is discontinued. 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 Review of Systems Musculoskeletal: leg pain Objective Exam Vital Signs Vital Signs Date Time Temp Pulse Resp B/P (MAP) Pulse Ox O2 Delivery O2 Flow Rate FiO2 10/22/18 16:32 100.4 10/22/18 15:41 83 18 141/68 (92) 97 Room Air 10/22/18 04:00 2.00 Capillary Refill : Less Than 3 SecondsLess Than 3 Seconds General Appearance: No Apparent Distress, WD/WN, Chronically ill, Cachetic HEENT: PERRL/EOMI, Normal ENT Inspection Neck: Normal Inspection Respiratory: Chest Non Tender, Lungs Clear, Normal Breath Sounds, No Accessory Muscle Use, No Respiratory Distress Cardiovascular: Regular Rate, Rhythm, No Edema, Other Gastrointestinal: Normal Bowel Sounds, No Organomegaly, No Pulsatile Mass Back: Normal Inspection, No CVA Tenderness Extremity: Normal Capillary Refill, Normal Inspection, No Calf Tenderness, No Pedal Edema, Other (decreased ROM right leg) Neurologic/Psychiatric: Alert, Oriented x3, No Motor/Sensory Deficits, Normal Mood/Affect Skin: Normal Color, Warm/Dry (dressing to right hip CDI) Results/Procedures Lab Laboratory Tests 10/22/18 06:10 Patient resulted labs reviewed. Assessment/Plan Assessment and Plan Assess & Plan/Chief Complaint Assessment: s/p right hip fracture repair POD # 1 h/o prostate cancer Post op anemia acute blood loss Plan: IRF? BM regimen Catheter removal per protocol Monitor for urinary retention and confusion Diagnosis/Problems Diagnosis/Problems (1) Closed right hip fracture Status: Acute Qualifiers: Encounter type: initial encounter Qualified Codes: S72.001A - Fracture of unspecified part of neck of right femur, initial encounter for closed fracture (2) History of prostate cancer Status: Chronic (3) Acute blood loss anemia Status: Acute (4) Advanced age Status: Chronic Clinical Quality Measures DVT/VTE Risk/Contraindication: Risk Factor Score Per Nursin RFS Level Per Nursing on Admit: 4+=Very High BLAINE MALONEY DO Oct 22, 2018 10:46
--- NOTE | 2018-10-22 11:18 | Occupational Therapy Eval ---
OT Evaluation-General/PLF Medical Diagnosis Admission Date Oct 20, 2018 at 19:50 Medical Diagnosis: right hip fx, 8th-9th rib fx Onset Date: Oct 20, 2018 Therapy Diagnosis Therapy Diagnosis: impaired self care skills Height/Weight Height (Feet): 5 Height (Inches): 11.00 Weight (Pounds): 174 Weight (Ounces): 3.0 Precautions Precautions/Isolations: Fall Prevention, Standard Precautions Safety Interventions: None Weight Bear Status Weight Bearing Restriction: Touch Toe Bearing Location Restriction: R LE Referral Physician: Lauro Corbin APRN Medical History Additional Medical History prostate cancer, prostatectomy, kidney stones, arthritis Current History Pt had fall resulting in right hip fracture and rib fractures. S/p IM nail right hip. Pt is TTWB right LE Reviewed History: Yes Social History Home: Multilevel Current Living Status: Spouse Entry Into Home: Stairs Without Railing Steps Into Home: 1 ADL-Prior Level of Function Therapy Code Descriptions/Definitions Functional [place] Measure: 0=Not Assessed/NA 4=Minimal Assistance 1=Total Assistance 5=Supervision or Setup 2=Maximal Assistance 6=Modified [place] 3=Moderate Assistance 7=Complete [place] Therapy Quality Codes: 6 Independent with activity with or without an assistive device 5 Patient requires set up or clean up by helper. Patient completes activity by themselves 4 Supervision or touching assist (CGA). [place] provide cues , steadying assist 3 The helper provides less than half the effort to complete the activity 2 The helper provides more than half the effort to complete the activity 1 Dependent. The helper does all the effort to complete an activity 7 Patient refused to complete or attempt activity 9 The patient did not perform the activity before the current illness or injury 88 Not attempted due to Medical conditions or safety concerns Functional Abilities and Goals: Independent: Patient completed the activities by him/herself, with or without an assistive device, with no assistance from a helper. Needed Some Help: Patient needed partial assistance from another person to complete activities. Dependent: A helper completed the activities for the patient. Unknown: Not Applicable: ADL PLOF Comments Pt reports being independent with self care and mobility. 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 Pt in bed, agrees to therapy. Pt reports pain, but does not rate. Mental Status/Objective Patient Orientation: Person Attachments: Ace Catheter, IV ADL-Treatment ADL-Current Pt supine to sit with maximal assistance and cues for technique. Pt sat EOB with SBA. Instructed in TTWB right LE. Pt performed sit to stand with mod assist , cues for hand placement. During static standing with FWW pt is able to maintain WB status, but has difficulty maintaining during transfer. Pt performed pivot transfer to chair with max assist. Pt is impulsive with mobility and is preoccupied with IV and Ace lines, requires multiple cues for safety. Pt sitting in chair with needs met after session. RN aware. Therapy Code Descriptions/Definitions Functional [place] Measure: 0=Not Assessed/NA 4=Minimal Assistance 1=Total Assistance 5=Supervision or Setup 2=Maximal Assistance 6=Modified [place] 3=Moderate Assistance 7=Complete [place] Therapy Quality Codes: 6 Independent with activity with or without an assistive device 5 Patient requires set up or clean up by helper. Patient completes activity by themselves 4 Supervision or touching assist (CGA). [place] provide cues , steadying assist 3 The helper provides less than half the effort to complete the activity 2 The helper provides more than half the effort to complete the activity 1 Dependent. The helper does all the effort to complete an activity 7 Patient refused to complete or attempt activity 9 The patient did not perform the activity before the current illness or injury 88 Not attempted due to Medical conditions or safety concerns Education OT Patient Education: Rehab process Teaching Recipient: Patient Teaching Methods: Discussion Response to Teaching: Reinforcement Needed OT Short Term Goals Short Term Goals Transfers (B,C,W/C) (FIM): 4 1=Demonstrate adherence to instructed precautions during ADL tasks. 2=Patient will verbalize/demonstrate understanding of assistive devices/ modifications for ADL. 3=Patient will improve strength/tolerance for activity to enable patient to perform ADL's. OT Group Home Goals Group Home Goals Time Frame: October 29, 2018 Eating (FIM): 6 Grooming(FIM): 6 Upper Body Dressing(FIM): 5 Lower Body Dressing(FIM): 4 Toilet/Commode Transfer(FIM): 4 Additional Goals: 1-Demonstrate ADL Tasks, 2-Verbalize Understanding, 3- ImproveStrength/Shant 1=Demonstrate adherence to instructed precautions during ADL tasks. 2=Patient will verbalize/demonstrate understanding of assistive devices/ modifications for ADL. 3=Patient will improve strength/tolerance for activity to enable patient to perform ADL's. OT Education/Plan Problem List/Assessment Assessment: Decreased Activ Tolerance, Decreased UE Strength, Dependent Transfers, Impaired Funct Balance, Impaired I ADL's, Impaired Self-Care Skills Pt had fall resulting in right hip facture and rib fractures. Pt s/p IM nail right hip. Pt demonstrates decreased mobility, strength, activity tolerance, safety awareness, and ADL functioning. Pt to benefit from skilled OT intervention for ADL training, transfers, strengthening, and safety education to increase level of independence and allow safe discharge. Discharge Recommendations Plan/Recommendations: Continue POC Treatment Plan/Plan of Care Treatment,Training & Education: Yes Patient would benefit from OT for education, treatment and training to promote independence in ADL's, mobility, safety and/or upper extremity function for ADL' s. Plan of Care: ADL Retraining, Functional Mobility, UE Funct Exercise/Act Treatment Duration: October 29, 2018 Frequency: 5 times per week Estimated Hrs Per Day: .25 hour per day Rehab Potential: Fair Time/GCodes Start Time: 10:15 Stop Time: 10:38 Total Time Billed (hr/min): 23 Billed Treatment Time 1 visit, SURINDER(23minutes) DON AYALA OT Oct 22, 2018 11:18
--- NOTE | 2018-10-22 14:40 | Physical Therapy Daily Note ---
PT Daily Note-Current Subjective Patient in recliner sleeping pre tx, agrees to PT after waking. Patient is very lethargic and confused. States he has pain in his right hip but cannot rate it. Appearance Patient in bed post tx with nurse call, phone, tray, all needs met. Bed alarm on. Mental Status Patient Orientation: Person, Confused Attachments: Ace Catheter, IV Transfers Therapy Code Descriptions/Definitions Functional [place] Measure: 0=Not Assessed/NA 4=Minimal Assistance 1=Total Assistance 5=Supervision or Setup 2=Maximal Assistance 6=Modified [place] 3=Moderate Assistance 7=Complete [place] Therapy Quality Codes: 6 Independent with activity with or without an assistive device 5 Patient requires set up or clean up by helper. Patient completes activity by themselves 4 Supervision or touching assist (CGA). [place] provide cues , steadying assist 3 The helper provides less than half the effort to complete the activity 2 The helper provides more than half the effort to complete the activity 1 Dependent. The helper does all the effort to complete an activity 7 Patient refused to complete or attempt activity 9 The patient did not perform the activity before the current illness or injury 88 Not attempted due to Medical conditions or safety concerns Transfers (B, C, W/C) (FIM): 2 Scootin Rollin Supine to/from Sit: 2 Sit to/from Stand: 4 Bed to/from Chair: 4 Patient needs max assist for sit to supine, min assist to stand from the chair. Patient actually remembered his weight bearing status. Weight Bearing Right Lower Extremity: Right Touch Toe Bearing Left Lower Extremity: Left Full Weight Bearing Gait Training Gait (FIM): 1 Distance: 3' Gait Level of Assist: 4 Gait Persons Needed: 1 Gait Assistive Device: FWW Patient ambulated from the recliner to the bed, after turning he lunged to the bed to sit because he was getting fatigued. He would not step back one or two steps backward to be safely in front of the bed. He was able to maintain TTWB. Exercises Supine Ex: Ankle pumps, Heel Slides, Short Arc Quads, Hip abd/add Supine Reps: 10 Treatments bed mobility and transfers, ambulation, LE exercises Assessment Current Status: Fair Progress patient was able to ambulate a little this afternoon. PT Short Term Goals Short Term Goals Time Frame: October 29, 2018 Transfers (B,C,W/C) (FIM): 4 Gait (FIM): 1 Gait Distance Comment: 20' Gait Level of Assist: 4 Gait Assistive Device: FWW PT Plan Problem List Problem List: Activity Tolerance, Functional Strength, Safety, Balance, Gait, Transfer, Bed Mobility, ROM Treatment/Plan Treatment Plan: Continue Plan of Care Treatment Plan: Bed Mobility, Education, Functional Activity Shant, Functional Strength, Gait, Safety, Therapeutic Exercise, Transfers Treatment Duration: October 29, 2018 Frequency: 11 times per week Estimated Hrs Per Day: .25 hour per day (15-30') Patient and/or Family Agrees t: Yes Safety Risks/Education Patient Education: Gait Training, Transfer Techniques, Correct Positioning, Safety Issues Teaching Recipient: Patient Teaching Methods: Demonstration, Discussion Response to Teaching: Reinforcement Needed Time/GCodes Time In: 1420 Time Out: 1435 Total Billed Treatment Time: 15 Total Billed Treatment 1 visit FA 15' MADHAVI HOOKS PT Oct 22, 2018 14:40
[2018-10-22] MEDS: ACETAMINOPHEN 325 MG TABLET PO PRN (16:32)
[2018-10-22] MEDS: SENNA W/DOCUSATE (SENOKOT S) TABLET PO SCH (20:58)
[2018-10-22] MEDS: HYDROcodone/APAP 10 MG/325 MG (LORTAB) TAB PO PRN (23:30)
[2018-10-23] VITALS (8 sets, daily range): BP systolic 121–145; BP diastolic 38–105
[2018-10-23] MEDS: D5 1/2 NS 1000 ML IV SOLUTION 1,000 ML IV SCH (01:53)
[2018-10-23] MEDS: morphine INJ 10 MG/ML 1ML (SYR OR VIAL) IVP PRN (04:09)
[2018-10-23] MEDS: ACETAMINOPHEN 325 MG TABLET PO PRN ×2 (04:10→21:29)
[2018-10-23 04:35] LABS: HEMOGLOBIN 9.4 G/DL (13.3-17.7); MEAN PLATELET VOLUME 10.2 FL (7.4-10.4); RED CELL DISTRIBUTION WIDTH 12.7 % (10.0-14.5); WHITE BLOOD COUNT 8.8 10^3/uL (4.3-11.0)
[2018-10-23 04:53] LABS: BUN/CREATININE RATIO 17; CALCIUM 8.5 MG/DL (8.5-10.1); CARBON DIOXIDE 24 MMOL/L (21-32); CHLORIDE 103 MMOL/L (98-107); CREATININE SERUM 0.84 MG/DL (0.60-1.30); GFR ESTIMATED > 60; GLUCOSE 123 MG/DL (70-105); POTASSIUM 4.1 MMOL/L (3.6-5.0); SODIUM 135 MMOL/L (135-145)
[2018-10-23] MEDS: IRON POLYSAC 150 MG CAP (NIFEREX) PO SCH ×2 (06:09→17:57)
--- NOTE | 2018-10-23 06:53 | Progress Note (SOAP) ---
Subjective Date Seen by a Provider: Oct 23, 2018 Time Seen by a Provider: 06:50 Subjective/Events-last exam Currently complains of right hip pain, otherwise doing fair to well. Was up in chair yesterday and ambulated minimally with therapist. Objective Exam Vital Signs Date Time Temp Pulse Resp B/P (MAP) Pulse Ox O2 Delivery O2 Flow Rate FiO2 10/23/18 06:11 99.3 10/23/18 06:10 99.3 10/23/18 04:10 100.0 10/23/18 03:57 100.0 77 20 137/61 (86) 95 Room Air 10/23/18 02:32 92 Room Air 10/22/18 23:40 99.7 75 18 131/62 (85) 96 Room Air 10/22/18 21:55 96 Room Air 10/22/18 20:50 Room Air 10/22/18 19:33 99.2 72 18 126/60 (82) 95 Room Air 10/22/18 19:27 95 Room Air 10/22/18 16:32 100.4 10/22/18 15:41 100.1 83 18 141/68 (92) 97 Room Air 10/22/18 14:13 92 Room Air 10/22/18 12:00 99.8 81 18 144/65 (91) 95 Room Air 10/22/18 10:48 92 Room Air 10/22/18 08:00 100.5 74 20 125/55 (78) 94 Room Air 10/22/18 08:00 Room Air 10/22/18 07:37 94 Room Air I & O 10/23/18 07:00 Intake Total 2400 ml Output Total 2600 ml Balance -200 ml Capillary Refill : Less Than 3 SecondsLess Than 3 Seconds General Appearance: No Apparent Distress Extremity: Normal Capillary Refill, Normal Inspection, No Calf Tenderness, No Pedal Edema Neurologic/Psychiatric: Alert, Oriented x3, No Motor/Sensory Deficits, Normal Mood/Affect Skin: Normal Color, Warm/Dry (dressing clean dry and intact right hip, no fluctuants or sign of hematoma) Results Lab Laboratory Tests 10/23/18 03:55: White Blood Count 8.8, Red Blood Count 3.03L, Hemoglobin 9.4L, Hematocrit 28L, Mean Corpuscular Volume 94, Mean Corpuscular Hemoglobin 31, Mean Corpuscular Hemoglobin Concent 33, Red Cell Distribution Width 12.7, Platelet Count 185, Mean Platelet Volume 10.2, Sodium Level 135, Potassium Level 4.1, Chloride Level 103, Carbon Dioxide Level 24, Anion Gap 8, Blood Urea Nitrogen 14, Creatinine 0.84, Estimat Glomerular Filtration Rate > 60, BUN/Creatinine Ratio 17, Glucose Level 123H, Calcium Level 8.5 Microbiology 10/20/18 MRSA Screen - Final, Complete MRSA not isolated Assessment/Plan Assessment/Plan Assess & Plan/Chief Complaint A: comminuted displaced intertrochanteric right hip fracture Chronic right hip osteoarthritis fall (6 feet) right rib fractures s/p right hip intramedullary nailing fever secondary to poor inspiratory effort acute blood loss anemia P: DC to IRF or skilled today as long as internal medicine is OK with discharge. Clinical Quality Measures DVT/VTE Risk/Contraindication: Risk Factor Score Per Nursin RFS Level Per Nursing on Admit: 4+=Very High ENOC BELL APRN Oct 23, 2018 06:53
--- NOTE | 2018-10-23 06:59 | Discharge Inst-Skilled Nursing ---
Discharge Inst-Skilled NF Patient Instructions Patient Problems: s/p IM nailing of comminuted displaced right intertrochanteric hip fracture fall >6 feet debility pain acute blood loss anemia Goal: independence with ADLs Patient Instructions: touch toe WB only on RLE using walker and staff for assistance daily island dressing changes up to chair TID Alfredo hose x 2 weeks ASA for DVT prophylaxis Remove caroline on 10/30 and apply steri strips Consult/Follow Up/Orders Follow Up Appt.: [address] Demarco in [facility] office for xray Skilled NF Admit to: IRF Certification (SNF) I certify that SNF services are required to be given on an inpatient basis because of the above named patient's need for half-way care on a continuing basis for the conditions(s) for which he/she was receiving inpatient hospital services prior to his/her transfer to the SNF. [facility] Facility Order: Physical Therapy-Evaluate & Treat Oxygen Delivery Method: Room Air New & Resume Previous Orders Enoc Bell Oct 23, 2018 06:55 Pneu Vac Indicated: Yes ENOC BELL APRN Oct 23, 2018 06:59
[2018-10-23] MEDS ORDERED: oxyCODONE/APAP 10/325MG (PERCOCET 10) TABLET PO PRN (07:00)
[2018-10-23] MEDS ORDERED: IRON150C3 PO (07:05)
[2018-10-23] MEDS ORDERED: ASPI325T32 PO (07:05)
[2018-10-23] MEDS ORDERED: OXYC1TAB12 PO (07:05)
[2018-10-23] MEDS ORDERED: SENN-20 PO (07:05)
[2018-10-23] MEDS ORDERED: TRAM50TA2 PO (07:05)
--- NOTE | 2018-10-23 08:50 | NUR ---
OXY 10/325 PO FOR PAIN.
[2018-10-23] MEDS: ENOXAPARIN 40 MG/0.4 ML (LOVENOX) SYR SC SCH (08:56)
[2018-10-23] MEDS: SENNA W/DOCUSATE (SENOKOT S) TABLET PO SCH ×2 (08:58→21:29)
[2018-10-23] MEDS: POLYETHYLENE GLYCOL 17 GM (MIRALAX) PACK PO SCH ×2 (08:59→21:29)
--- NOTE | 2018-10-23 09:00 | NUR ---
IVF DC'D AND CHANGED TO HL.
--- NOTE | 2018-10-23 09:57 | Progress Note-Hospitalist ---
Subjective HPI/CC On Admission Date Seen by Provider: Oct 23, 2018 Time Seen by Provider: 09:00 The patient is an 82-year-old former. 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 He has a large tractor and gets up into it on a ramp. There is a handrail but also a gap and he missed it and fell awkwardly landing on his hip. His health has otherwise been good. Subjective/Events-last exam Catheter was removed ans had been able to urinate without difficulty. Inpatient rehab evaluation asking for approval for insurance. Will heplock IV fluid. MiraLax and Senna given on schedule. Orthopedics approved inpatient rehab upon discharge. Pt very hard of hearing and difficulty communicating at times but her appears to be a good candidate for inpatient rehab. Had episode of confusion with hypoxia which prompted [facility]G BNP CXR and Dr Blackman consultation and spoke to PCP Dr Lynn and he does not recall patient drinks a lot of alcohol or smokes. Review of Systems Musculoskeletal: leg pain Objective Exam Vital Signs Vital Signs Date Time Temp Pulse Resp B/P (MAP) Pulse Ox O2 Delivery O2 Flow Rate FiO2 10/23/18 18:01 Nasal Cannula 4.00 10/23/18 18:00 112 31 91 10/23/18 17:15 137/105 (116) 10/23/18 16:02 99.0 Capillary Refill : Less Than 3 SecondsLess Than 3 Seconds General Appearance: No Apparent Distress HEENT: PERRL/EOMI, Normal ENT Inspection Neck: Normal Inspection Respiratory: Chest Non Tender, Lungs Clear, Normal Breath Sounds, No Accessory Muscle Use, No Respiratory Distress Cardiovascular: Regular Rate, Rhythm, No Edema, Other Gastrointestinal: Normal Bowel Sounds, No Organomegaly, No Pulsatile Mass Back: Normal Inspection, No CVA Tenderness Extremity: Normal Capillary Refill, Normal Inspection, No Calf Tenderness, No Pedal Edema Neurologic/Psychiatric: Alert, Oriented x3, No Motor/Sensory Deficits, Normal Mood/Affect Skin: Normal Color, Warm/Dry (dressing clean dry and intact right hip, no fluctuants or sign of hematoma) Results/Procedures Lab Laboratory Tests 10/23/18 03:55 Patient resulted labs reviewed. Assessment/Plan Assessment and Plan Assess & Plan/Chief Complaint Assessment: s/p right hip fracture repair POD # 2 h/o prostate cancer Post op anemia acute blood loss Plan: IRF? BM regimen Catheter removal per protocol Monitor for urinary retention and confusion Diagnosis/Problems Diagnosis/Problems (1) Closed right hip fracture Status: Acute Qualifiers: Encounter type: initial encounter Qualified Codes: S72.001A - Fracture of unspecified part of neck of right femur, initial encounter for closed fracture (2) History of prostate cancer Status: Chronic (3) Acute blood loss anemia Status: Acute (4) Advanced age Status: Chronic Clinical Quality Measures DVT/VTE Risk/Contraindication: Risk Factor Score Per Nursin RFS Level Per Nursing on Admit: 4+=Very High BLAINE MALONEY DO Oct 23, 2018 09:57
--- NOTE | 2018-10-23 11:14 | NUR ---
VOIDING SINCE KELLY REMOVED THIS AM.
--- NOTE | 2018-10-23 12:18 | Physical Therapy Daily Note ---
PT Daily Note-Current Subjective Patient in bed pre tx, agrees to PT, states he has some pain in his right hip but does not seem to be able to rate it. Appearance Patient in recliner post tx with nurse call, phone, tray, family in the room. Mental Status Patient Orientation: Person, Confused Transfers Therapy Code Descriptions/Definitions Functional [place] Measure: 0=Not Assessed/NA 4=Minimal Assistance 1=Total Assistance 5=Supervision or Setup 2=Maximal Assistance 6=Modified [place] 3=Moderate Assistance 7=Complete [place] Therapy Quality Codes: 6 Independent with activity with or without an assistive device 5 Patient requires set up or clean up by helper. Patient completes activity by themselves 4 Supervision or touching assist (CGA). [place] provide cues , steadying assist 3 The helper provides less than half the effort to complete the activity 2 The helper provides more than half the effort to complete the activity 1 Dependent. The helper does all the effort to complete an activity 7 Patient refused to complete or attempt activity 9 The patient did not perform the activity before the current illness or injury 88 Not attempted due to Medical conditions or safety concerns Transfers (B, C, W/C) (FIM): 3 Scootin Rollin Supine to/from Sit: 3 Sit to/from Stand: 3 Bed to/from Chair: 3 Patient had a harder time with bed mobility and transfers, today. He seems more confused and needed extra time and could only follow simple cues and directions and needed it explained many times each time. He needed assist with his right leg and trunk during supine to sit and needed mod assist to stand at the side of the bed. Weight Bearing Right Lower Extremity: Right Touch Toe Bearing Left Lower Extremity: Left Full Weight Bearing Gait Training Gait (FIM): 1 Distance: 3' Gait Level of Assist: 3 Gait Persons Needed: 1 Gait Assistive Device: FWW Patient is able to maintain TTWB on the right side but needs cues and directions constantly and needs assist guiding walker. Exercises Seated Therapy Exercises: Ankle pumps, Long arc quads Seated Reps: 15 Treatments bed mobility and transfers, ambulation, LE exercises Assessment Current Status: Poor Progress Patient seems more confused, more assist needed during mobility. PT Short Term Goals Short Term Goals Time Frame: October 29, 2018 Transfers (B,C,W/C) (FIM): 4 Gait (FIM): 1 Gait Distance Comment: 20' Gait Level of Assist: 4 Gait Assistive Device: FWW PT Plan Problem List Problem List: Activity Tolerance, Functional Strength, Safety, Balance, Gait, Transfer, Bed Mobility, ROM Treatment/Plan Treatment Plan: Continue Plan of Care Treatment Plan: Bed Mobility, Education, Functional Activity Shant, Functional Strength, Gait, Safety, Therapeutic Exercise, Transfers Treatment Duration: October 29, 2018 Frequency: 11 times per week Estimated Hrs Per Day: .25 hour per day (15-30') Patient and/or Family Agrees t: Yes Safety Risks/Education Patient Education: Gait Training, Transfer Techniques, Correct Positioning, Safety Issues Teaching Recipient: Patient Teaching Methods: Demonstration, Discussion Response to Teaching: Reinforcement Needed Time/GCodes Time In: 1200 Time Out: 1212 Total Billed Treatment Time: 12 Total Billed Treatment 1 visit FA 12 MADHAVI HOOKS PT Oct 23, 2018 12:18
--- NOTE | 2018-10-23 13:25 | NUR ---
CALLED TO ROOM BY OT. O2 SATS IN 70'S ON 2L N/C. HAD DROPPED SLIGHTLY WHEN WORKING WITH PT AND PLACED ON 2L N/C. ENCOURAGED TO TAKE DEEP BREATHES. O2 INCREASED TO 4L N/C. DR. MALONEY NOTIFIED. RT NOTIFIED. REMAINS A/0.
--- NOTE | 2018-10-23 13:30 | NUR ---
VS [id number] 176/69 O2 94 4L. DENIES PAIN. IF DOZES, SATS DROP INTO LOW 80'S.
--- NOTE | 2018-10-23 13:40 | NUR ---
RT HERE AT BEDSIDE.
--- NOTE | 2018-10-23 13:45 | NUR ---
DR. DAVIS NOTIFIED OF CONSULT. ORDERS REC'D.
--- NOTE | 2018-10-23 13:46 | Occupational Ther Daily Note ---
OT Current Status-Daily Note Subjective Pt alert, sitting in recliner. Nrsg reported that pt has had a difficult time keeping O2 sats at 90 and above, lowest 74%. Pt agrees to therapy. Pt slightly hard of hearing. Mental Status/Objective Patient Orientation: Person, Place, Time, Situation Therapy Code Descriptions/Definitions Functional [place] Measure: 0=Not Assessed/NA 4=Minimal Assistance 1=Total Assistance 5=Supervision or Setup 2=Maximal Assistance 6=Modified [place] 3=Moderate Assistance 7=Complete [place] Attachments: IV, Oxygen ADL-Treatment Due to hip precautions, pt is dependent with donning/doffing clothing over feet and bathing. Max A to stand and hike pants over feet. Pt able to complete upper body bathing and dressing by self after set up. Pt completed grooming sitting in recliner by self when supplies were provided. Max A for SPT to bed using FWW. Pt has difficult time adhering to TTWB status. Pt unable to verbalize hip precautions. LE dressing equipment is needed. Mod A EOB to supine and to position in bed. Pt's O2 sats were at 74% and continued cues for deep breathing. Nrsg notified. Pt had difficulty with staying awake during task, verbal cues to stay awake needed. After therapy, pt lying in bed with call light/phone in reach. All needs met in room. Grooming (FIM): 5 Bathing (FIM): 2 (Pt requires max A in standing to cleanse buttocks/zoë area.) Bathing Location: L Arm, R Arm, L Upper Leg, R Upper Leg, Chest, Abdomen Upper Body (FIM): 5 Lower Body Dressing (FIM): 2 OT Short Term Goals Short Term Goals Transfers (B,C,W/C) (FIM): 4 1=Demonstrate adherence to instructed precautions during ADL tasks. 2=Patient will verbalize/demonstrate understanding of assistive devices/ modifications for ADL. 3=Patient will improve strength/tolerance for activity to enable patient to perform ADL's. OT Intermediate Goals Intermediate Goals Time Frame: October 29, 2018 Eating (FIM): 6 Grooming(FIM): 6 Upper Body Dressing(FIM): 5 Lower Body Dressing(FIM): 4 Toilet/Commode Transfer(FIM): 4 Additional Goals: 1-Demonstrate ADL Tasks, 2-Verbalize Understanding, 3- ImproveStrength/Shant 1=Demonstrate adherence to instructed precautions during ADL tasks. 2=Patient will verbalize/demonstrate understanding of assistive devices/ modifications for ADL. 3=Patient will improve strength/tolerance for activity to enable patient to perform ADL's. OT Education/Plan Problem List/Assessment Assessment: Decreased Activ Tolerance, Decreased Safety Aware, Dependent Transfers, Impaired Bed Mobility, Impaired Self-Care Skills Pt had fall resulting in right hip facture and rib fractures. Pt s/p IM nail right hip. Pt demonstrates decreased mobility, strength, activity tolerance, safety awareness, and ADL functioning. Pt to benefit from skilled OT intervention for ADL training, transfers, strengthening, and safety education to increase level of independence and allow safe discharge. Discharge Recommendations Plan/Recommendations: Continue POC Treatment Plan/Plan of Care Patient would benefit from OT for education, treatment and training to promote independence in ADL's, mobility, safety and/or upper extremity function for ADL' s. Plan of Care: ADL Retraining, Functional Mobility, UE Funct Exercise/Act Treatment Duration: October 29, 2018 Frequency: 5 times per week Estimated Hrs Per Day: .25 hour per day Rehab Potential: Fair Time/GCodes Start Time: 12:35 Stop Time: 13:30 Total Time Billed (hr/min): 55 Billed Treatment Time 1 visit-ADL 4 (55 min) NARESH MESSINA Oct 23, 2018 13:46
--- NOTE | 2018-10-23 13:48 | NUR ---
CM/SS. Patient is post op for hip repair. He was independent for all ADL's prior to fall with injury getting off of his tractor. Referral completed with [facility] IR[facility], they have submitted for benefit authorization and await confirmation. If insurance does not approve patient's admission to IRF, care management team will need to explore best care plan, [facility] vs home with [facility] nursing and PT.
--- NOTE | 2018-10-23 13:50 | NUR ---
RT HERE TO DRAW ABG'S
[2018-10-23 14:00] LABS: ABG BASE EXCESS 0.9 MMOL/L (-2.5-2.5); ABG OXYGEN SATURATION 98 % (94-100); ABG PCO2 38 MMHG (35-45); ABG PH 7.43 (7.37-7.43); ABG PO2 108 MMHG (79-93); ABG TCO2 25.7 MMOL/L (21.0-31.0)
[2018-10-23 14:08] LABS: ALLENS TEST POSITIVE
[2018-10-23 14:09] LABS: INSPIRED O2 4L; PATIENT TEMP 99.8; VENTILATOR NO
--- NOTE | 2018-10-23 14:20 | NUR ---
PLACED ON BIPAP BY RT. ENOC PARTIDA
--- NOTE | 2018-10-23 15:01 | Physical Therapy Progress Note ---
Therapy Progress Note Hold this afternoon. Patient is now on bipap. Will check back in the morning. MADHAVI HOOKS PT Oct 23, 2018 15:01
[2018-10-23] MEDS: RT-ALBUTEROL SULF 2.5 MG/3 ML PRE-MIX VIAL INH SCH ×2 (15:13→19:42)
--- NOTE | 2018-10-23 15:30 | NUR ---
PT HAD BEEN RESTING WITH SATS IN 100'S. WOKE UP AND VOIDED IN BIPAP TUBING. RT CALLED AND TUBING CHANGED OUT.
--- NOTE | 2018-10-23 15:45 | NUR ---
ANXIOUS AND MORE CONFUSED. REFUSING BIPAP. WHEN AWAKE AND ALERT, SATS IN HIGH 90'S, BUT OCCASIONAL DROPS INTO 70'S AND 80'S. DR. MALONEY NOTIFIED.
--- NOTE | 2018-10-23 16:20 | NUR ---
REACHED DR. DAVIS. ORDERS FOR TRANSFER TO ICU. SANDRO MURRELL NOTIFIED. SON SULEMAN NOTIFIED AFTER HANDY GAVE ME HIS NUMBER. [phone].
--- NOTE | 2018-10-23 16:44 | NUR ---
AWAITING ICU BED. RT HERE TO WORK WITH PT AND ATTEMPT BIPAP TO KEEPS SATS > 90%. DR. MALONEY NOTIFIED OF PT BEING TRANSFERRED. ICU BED # GIVEN TO SON.
--- NOTE | 2018-10-23 17:10 | NUR ---
TO ICU PER BED WITH BIPAP ON AND RT AT BEDSIDE, REPORT TO RN. SON ARRIVED AND IS AT BEDSIDE.
--- NOTE | 2018-10-23 18:09 | Pulmonary Consultation ---
History of Present Illness History of Present Illness Date of Consultation 10/23/18 18:04 Time Seen by Provider: 18:04 Date of Admission Reason for Visit: Fall, right hip fracture History of Present Illness 82yo pt presented to ED s/p fall and found to have right hip fracture and fractured ribs of 8 and 9. Pt is now s/p uncomplicated surgical repair of right hip. Pt was on 4th floor awaiting rehab transfer when he started having worsening SOB, lethargy, and hypoxia. Pt was placed on BiPAP and then became very anxious. He kept pulling BiPAP mask off and would desaturate. I am consulted for pulmonary/ICU management. Allergies and Home Medications Allergies Coded Allergies: No Known Drug Allergies (Unverified , 03/31/16) Home Medications Albuterol Sulfate 2.5 Mg/3 Ml Vial.neb, 2.5 MG INH RTTID Prescribed by: BLAINE MALONEY on 10/29/18 1229 Aspirin 325 Mg Tablet.dr, 325 MG PO DAILY Prescribed by: ENOC BELL on 10/23/18 0705 Bisacodyl 5 Mg Tablet.dr, 5 MG PO DAILY PRN for CONSTIPATION-4TH LINE, (Reported ) Iron Polysaccharide Complex 150 Mg Capsule, 150 MG PO BID WITH MEALS Prescribed by: ENOC BELL on 10/23/18 07 Lactulose 20 Gm/30 Ml Solution, 10 GM PO BID Prescribed by: BLAINE MALONEY on 10/29/18 1229 Oxycodone HCl/Acetaminophen 1 Each Tablet, 1 TAB PO Q4H PRN for PAIN-MODERATE TO SEVERE Prescribed by: ENOC BELL on 10/23/18 0705 Polyethylene Glycol 3350 17 Gm Powd.pack, 17 GM PO BID Prescribed by: BLAINE MALONEY on 10/29/18 1229 Risperidone 1 Mg Tablet, 0.5 MG PO BID Prescribed by: BLAINE MALONEY on 10/29/18 1229 Sennosides/Docusate Sodium 1 Each Tablet, 1 EA PO BID Prescribed by: ENOC BELL on 10/23/18 0705 Tramadol HCl 50 Mg Tablet, 50 MG PO Q6HR PRN for PAIN-MODERATE Prescribed by: ENOC BELL on 10/23/18 0705 Past Bozireb-Nplqsk-Sqbpar Hx Past Med/Social Hx: Reviewed Nursing Past Med/Soc Hx Patient Social History Alcohol Use: Denies Use Recreational Drug Use: No Smoking Status: Never a Smoker 2nd Hand Smoke Exposure: No Recent Foreign Travel: No Contact w/Someone Who Travel: No Recent Infectious Disease Expo: No Recent Hopitalizations: No Immunizations Up To Date Tetanus Booster (TDap): Less than 5yrs PED Vaccines UTD: No Date of Influenza Vaccine: May 16, 2018 Seasonal Allergies Seasonal Allergies: No Past Medical History Surgeries: Yes Appendectomy, Prostatectomy Respiratory: No Cardiac: No Neurological: No Reproductive Disorders: No Genitourinary: Yes Prostate Problems, Kidney Stones Gastrointestinal: No Musculoskeletal: Yes Arthritis Endocrine: No HEENT: Yes Hearing Impairment: Hard of Hearing Cancer: Yes Prostate Did You Recieve Any Treatments: Yes What Type of Treatment Did You: Radiation, Surgical Intervention Psychosocial: No Integumentary: No Blood Disorders: No Family Medical History Reviewed Nursing Family Hx Patient reports no known family medical history. No Pertinent Family Hx Review of Systems Time Seen by Provider: 18:27 Sepsis Event Evaluation Height, Weight, BMI Height: 5'11.00" Weight: 174lbs. 3.0oz. 79.892745ph; 24.3 BMI Method:Stated Exam Exam Vital Signs Date Time Temp Pulse Resp B/P (MAP) Pulse Ox O2 Delivery O2 Flow Rate FiO2 10/23/18 17:55 107 10/23/18 17:15 98 38 137/105 (116) 93 Nasal Cannula 4.00 10/23/18 16:02 99.0 93 20 145/90 (108) 96 Nasal Cannula 4.00 10/23/18 15:13 82 15 100 40.00 10/23/18 14:29 74 18 100 50.00 10/23/18 12:00 100.4 72 18 140/68 (92) 94 Nasal Cannula 2.00 10/23/18 11:07 94 Room Air 10/23/18 08:00 94 Room Air 10/23/18 08:00 99.5 65 18 122/54 (76) 95 Room Air 10/23/18 06:11 99.3 10/23/18 06:10 99.3 10/23/18 04:10 100.0 10/23/18 03:57 100.0 77 20 137/61 (86) 95 Room Air 10/23/18 02:32 92 Room Air 10/22/18 23:40 99.7 75 18 131/62 (85) 96 Room Air 10/22/18 21:55 96 Room Air 10/22/18 20:50 Room Air 10/22/18 19:33 99.2 72 18 126/60 (82) 95 Room Air 10/22/18 19:27 95 Room Air I & O 10/23/18 07:00 Intake Total 2400 ml Output Total 2600 ml Balance -200 ml Height & Weight Height: 5'11.00" Weight: 174lbs. 3.0oz. 79.499413jm; 24.3 BMI Method:Stated General Appearance: Anxious, Moderate Distress, Thin HEENT: PERRL/EOMI, Normal ENT Inspection Neck: Normal Inspection Respiratory: Chest Non Tender, Normal Breath Sounds, Accessory Muscle Use, Decreased Breath Sounds Cardiovascular: Regular Rate, Rhythm, No Edema, Other Capillary Refill: Less Than 3 Seconds Peripheral Pulses: 2+ Dorsalis Pedis (R), 2+ Left Dors-Pedis (L), 2+ Radial Pulses (R), 2+ Radial Pulses (L) Gastrointestinal: non tender, soft Extremity: Normal Capillary Refill, Normal Inspection, No Calf Tenderness, No Pedal Edema Neurologic/Psychiatric: Alert, Oriented x3, No Motor/Sensory Deficits, Normal Mood/Affect Skin: Normal Color, Warm/Dry (dressing clean dry and intact right hip, no fluctuants or sign of hematoma) Results Lab Laboratory Tests 10/22/18 06:10 10/23/18 03:55 Assessment/Plan Assessment/Plan Closed right hip fracture s/p repair Metabolic encephalopathy/hospital psychosis -Risperadol, Precedex Hypoxia, respiratory distress -Check CXR -ABG reviewed -Change from BiPAP to Vapotherm Prostate cancer hx Anemia -Monitor SYD DAVIS DO Oct 23, 2018 18:09
[2018-10-23] MEDS ORDERED: DEXMEDETOMIDINE INJECTION 200 MCG in NS (IVPB) 50 ML IV SCH ×4 (18:30)
[2018-10-23] MEDS ORDERED: risperiDONE 0.25 MG (RisperDAL) TAB PO PRN (18:30)
[2018-10-23] MEDS ORDERED: morphine INJ 4 MG/ML 1 ML (VIAL/SYRINGE) IVP PRN (18:30)
[2018-10-23] MEDS: risperiDONE 1 MG (RisperDAL) TAB PO SCH (18:39)
--- NOTE | 2018-10-23 18:43 | Diagnostic Imaging Report ---
INDICATION: Shortness of breath. COMPARISON: Comparison is made with the prior from October 20, 2018. FINDINGS: Chronic interstitial changes within the lungs appear stable. There is no new alveolar infiltrate or consolidation. There is no effusion. Heart size and mediastinal contour is stable with pulmonary vascularity appearing appropriate. There are no current findings to suggest congestive failure. There are arthritic changes present within both shoulders. There is no acute osseous abnormality evident. IMPRESSION: 1. Stable radiographic appearance of the chest. No new or acute cardiopulmonary process evident. Dictated by: Dictated on workstation # [id number]
[2018-10-24] VITALS (24 sets, daily range): BP systolic 104–164; BP diastolic 51–101
[2018-10-24] MEDS: diphenhydrAMINE 50 MG/ML INJ (BENADRYL) IV PRN (02:46)
[2018-10-24 03:49] LABS: BASOPHILS % (AUTO) 0 % (0-10); EOSINOPHILS # (AUTO) 0.2 10^3/uL (0.0-0.3); EOSINOPHILS % (AUTO) 2 % (0-10); HEMATOCRIT 27 % (40-54); HEMOGLOBIN 8.8 G/DL (13.3-17.7); LYMPHOCYTES # (AUTO) 0.9 X 10^3 (1.0-4.0); LYMPHOCYTES % (AUTO) 10 % (12-44); MEAN CORPUSCULAR HEMOGLOBIN 30 PG (25-34); MEAN CORPUSCULAR HGB CONC 33 G/DL (32-36); MEAN CORPUSCULAR VOLUME 93 FL (80-99); MEAN PLATELET VOLUME 9.9 FL (7.4-10.4); MONOCYTES # (AUTO) 1.2 X 10^3 (0.0-1.0); MONOCYTES % (AUTO) 14 % (0-12); NEUTROPHILS # (AUTO) 6.4 X 10^3 (1.8-7.8); NEUTROPHILS % (AUTO) 73 % (42-75); PLATELET COUNT 181 10^3/uL (130-400); RED CELL DISTRIBUTION WIDTH 12.1 % (10.0-14.5); WHITE BLOOD COUNT 8.7 10^3/uL (4.3-11.0)
[2018-10-24 04:07] LABS: BUN/CREATININE RATIO 17; CALCIUM 8.6 MG/DL (8.5-10.1); CARBON DIOXIDE 22 MMOL/L (21-32); CHLORIDE 105 MMOL/L (98-107); CREATININE SERUM 0.81 MG/DL (0.60-1.30); GFR ESTIMATED > 60; GLUCOSE 117 MG/DL (70-105); MAGNESIUM 1.9 MG/DL (1.8-2.4); PHOSPHORUS 3.7 MG/DL (2.3-4.7); POTASSIUM 3.9 MMOL/L (3.6-5.0); SODIUM 137 MMOL/L (135-145)
--- NOTE | 2018-10-24 06:41 | Pulmonary Progress Note ---
Subjective Time Seen by a Provider: 06:41 Subjective/Events-last exam PT currently sleeping. Family at beside. Sepsis Event Evaluation Height, Weight, BMI Height: 5'11.00" Weight: 174lbs. 3.0oz. 79.442895cz; 24.3 BMI Method:Stated Exam Exam Vital Signs Date Time Temp Pulse Resp B/P (MAP) Pulse Ox O2 Delivery O2 Flow Rate FiO2 10/24/18 06:00 81 18 134/56 (82) 93 Vapotherm 30.00 15.00 10/24/18 05:00 76 17 126/67 (86) 93 Vapotherm 30.00 15.00 10/24/18 04:00 Vapotherm 15.00 30 10/24/18 04:00 85 17 117/68 (84) 92 Vapotherm 30.00 15.00 10/24/18 03:00 83 26 123/73 (90) 92 Vapotherm 30.00 15.00 10/24/18 02:00 80 21 110/62 (78) 92 Vapotherm 30.00 15.00 10/24/18 01:00 81 10/24/18 01:00 77 15 111/69 (83) 91 Vapotherm 30.00 15.00 10/24/18 00:00 85 13 104/71 (82) 92 Vapotherm 30.00 15.00 10/24/18 00:00 Vapotherm 15.00 30 10/23/18 23:00 96 15 121/61 (81) 92 Vapotherm 30.00 15.00 10/23/18 22:05 92 Vapotherm 30.00 15.00 10/23/18 22:00 100 16 142/38 (72) 93 Vapotherm 40.00 15.00 10/23/18 21:15 111 17 135/82 (99) 92 Vapotherm 40.00 15.00 10/23/18 20:00 Vapotherm 15.00 30 10/23/18 20:00 112 25 94 Vapotherm 40.00 15.00 10/23/18 19:42 96 Vapotherm 15.00 40 10/23/18 19:00 99 10/23/18 19:00 103 20 94 Vapotherm 40.00 15.00 10/23/18 18:42 Vapotherm 40.00 15.00 10/23/18 18:28 97 Vapotherm 15.00 40 10/23/18 18:01 Nasal Cannula 4.00 10/23/18 18:00 112 31 91 Nasal Cannula 4.00 10/23/18 17:55 107 10/23/18 17:15 98 38 137/105 (116) 93 Nasal Cannula 4.00 10/23/18 16:02 99.0 93 20 145/90 (108) 96 Nasal Cannula 4.00 10/23/18 15:13 82 15 100 40.00 10/23/18 14:29 74 18 100 50.00 10/23/18 12:00 100.4 72 18 140/68 (92) 94 Nasal Cannula 2.00 10/23/18 11:07 94 Room Air 10/23/18 08:00 94 Room Air 10/23/18 08:00 99.5 65 18 122/54 (76) 95 Room Air I & O 10/24/18 07:00 Intake Total 2100 ml Output Total 1250 ml Balance 850 ml Height & Weight Height: 5'11.00" Weight: 174lbs. 3.0oz. 79.005088lc; 24.3 BMI Method:Stated General Appearance: No Apparent Distress HEENT: PERRL/EOMI, Normal ENT Inspection Neck: Normal Inspection Respiratory: Chest Non Tender, Lungs Clear, Normal Breath Sounds, No Accessory Muscle Use, No Respiratory Distress Cardiovascular: Regular Rate, Rhythm, No Edema, Other Capillary Refill: Less Than 3 Seconds Peripheral Pulses: 2+ Dorsalis Pedis (R), 2+ Left Dors-Pedis (L), 2+ Radial Pulses (R), 2+ Radial Pulses (L) Gastrointestinal: non tender, soft Extremity: Normal Capillary Refill, Normal Inspection, No Calf Tenderness, No Pedal Edema Neurologic/Psychiatric: Alert, Oriented x3, No Motor/Sensory Deficits, Normal Mood/Affect Skin: Normal Color, Warm/Dry (dressing clean dry and intact right hip, no fluctuants or sign of hematoma) Results Lab Laboratory Tests 10/23/18 03:55 10/24/18 03:37 Assessment/Plan Assessment/Plan Closed right hip fracture s/p repair Metabolic encephalopathy/hospital psychosis -Risperadol, -Will try to D/C Precedex Hypoxia, respiratory distress -Check CXR -ABG reviewed C02 38 -Change from BiPAP to Vapotherm Prostate cancer hx Anemia -Monitor SYD DAVIS DO Oct 24, 2018 06:41
[2018-10-24] MEDS: POTASSIUM CL 10MEQ/50ML IVPB 50 ML IV SCH (06:44)
[2018-10-24] MEDS: MAGNESIUM 1 GM/100 ML IVPB 100 ML IV SCH (06:44)
[2018-10-24] MEDS: KCL 20 MEQ TAB (K-DUR) PO SCH (06:44)
[2018-10-24] MEDS: ACETAMINOPHEN 325 MG TABLET PO PRN ×2 (06:50→18:40)
[2018-10-24] MEDS: RT-ALBUTEROL SULF 2.5 MG/3 ML PRE-MIX VIAL INH SCH ×3 (06:55→19:05)
--- NOTE | 2018-10-24 07:51 | Diagnostic Imaging Report ---
CLINICAL INDICATION: Patient with dyspnea. Postop right hip surgery. EXAM: Portable chest x-ray upright view. COMPARISONS: Chest x-ray dated 10/23/2018. FINDINGS: Lungs/pleura: Again seen mild elevation of right hemidiaphragm. Stable increased lung markings throughout both lungs which may be from chronic lung changes. There is no definite interval lung infiltrate. There is no pneumothorax. There is no pleural effusion. Mediastinum: Unremarkable. Pulmonary vasculature: Unremarkable. Heart: Unremarkable. Bones/extrathoracic soft tissue: There are degenerative spurs involving both shoulder regions. IMPRESSION: Stable chest x-ray exam with no interval radiographic evidence of acute cardiopulmonary process. Dictated by: Dictated on workstation # [id number]
[2018-10-24] MEDS: SENNA W/DOCUSATE (SENOKOT S) TABLET PO SCH ×4 (08:47→22:03)
[2018-10-24] MEDS: risperiDONE 1 MG (RisperDAL) TAB PO SCH ×2 (08:47→21:26)
[2018-10-24] MEDS: POLYETHYLENE GLYCOL 17 GM (MIRALAX) PACK PO SCH ×2 (08:48→22:03)
[2018-10-24] MEDS: ENOXAPARIN 40 MG/0.4 ML (LOVENOX) SYR SC SCH (08:48)
[2018-10-24] MEDS: IRON POLYSAC 150 MG CAP (NIFEREX) PO SCH (08:57)
[2018-10-24] MEDS ORDERED: BISACODYL 10 MG SUPP (DULCOLAX) PR NR (10:00)
--- NOTE | 2018-10-24 10:00 | Progress Note-Hospitalist ---
Subjective HPI/CC On Admission Date Seen by Provider: Oct 24, 2018 Time Seen by Provider: 09:45 The patient is an 82-year-old former. 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 He has a large tractor and gets up into it on a ramp. There is a handrail but also a gap and he missed it and fell awkwardly landing on his hip. His health has otherwise been good. Subjective/Events-last exam Pt required transfer to ICU due to hypoxia and confusion last night Bowels have still not moved so will give aggressive medication today Son at bedside and I updated him on the plan to start prior authorization in advance to [facility] on Saturday because he certainly could benefit form inpatient rehab especially considering his pulmonary status and confusion at this time from delirium All studies reviewed were within normal limits Appreciate Dr. Muhammad consultation He is now on Vapotherm off of BiPAP Son reports that he does not smoke, not a former smoker, a life time nonsmoker and doesn't drink alcohol Checked meds and labs and overall pt doing much better Review of Systems Pulmonary: Dyspnea Neurological: Confusion Objective Exam Vital Signs Vital Signs Date Time Temp Pulse Resp B/P (MAP) Pulse Ox O2 Delivery O2 Flow Rate FiO2 10/24/18 18:40 101.2 10/24/18 18:00 90 18 136/70 (92) Vapotherm 30.00 15.00 10/24/18 16:00 30 10/24/18 15:00 96 Capillary Refill : Less Than 3 SecondsLess Than 3 Seconds General Appearance: No Apparent Distress, WD/WN, Chronically ill, Cachetic HEENT: PERRL/EOMI, Normal ENT Inspection Neck: Normal Inspection Respiratory: Chest Non Tender, Lungs Clear, Normal Breath Sounds, No Accessory Muscle Use, No Respiratory Distress Cardiovascular: Regular Rate, Rhythm, No Edema, No Gallop, No JVD, No Murmur, Normal Peripheral Pulses, Other Gastrointestinal: Normal Bowel Sounds, No Organomegaly, No Pulsatile Mass Back: Normal Inspection, No CVA Tenderness Extremity: Normal Capillary Refill, Normal Inspection, No Calf Tenderness, No Pedal Edema Neurologic/Psychiatric: Alert, Oriented x3, No Motor/Sensory Deficits, Normal Mood/Affect, Disoriented Skin: Normal Color, Warm/Dry (dressing clean dry and intact right hip, no fluctuants or sign of hematoma) Results/Procedures Lab Laboratory Tests 10/24/18 03:37 Patient resulted labs reviewed. Assessment/Plan Assessment and Plan Assess & Plan/Chief Complaint Assessment: s/p right hip fracture repair POD # 3 Acute hypoxia Acute delirium h/o prostate cancer Post op anemia acute blood loss Plan: IRF Saturday will start prior auth then BM regimen intensify it Monitor for urinary retention and confusion Appreciate Dr Blackman Diagnosis/Problems Diagnosis/Problems (1) Closed right hip fracture Status: Acute Qualifiers: Encounter type: initial encounter Qualified Codes: S72.001A - Fracture of unspecified part of neck of right femur, initial encounter for closed fracture (2) History of prostate cancer Status: Chronic (3) Acute blood loss anemia Status: Acute (4) Advanced age Status: Chronic (5) Delirium Status: Acute (6) Hypoxia Status: Acute (7) Constipation Status: Acute Qualifiers: Constipation type: slow transit constipation Qualified Codes: K59.01 - Slow transit constipation Clinical Quality Measures DVT/VTE Risk/Contraindication: Risk Factor Score Per Nursin RFS Level Per Nursing on Admit: 4+=Very High BLAINE MALONEY DO Oct 24, 2018 10:00
[2018-10-24] MEDS ORDERED: LACTULOSE SYRUP 10GM/15ML (ENULOSE) 30ML UDC PO NR (10:15)
--- NOTE | 2018-10-24 11:05 | Physical Therapy Progress Note ---
Therapy Progress Note Patient off bipap. No new orders yet. Notified nurse to send new orders so we can resume treatment. MADHAVI HOOKS PT Oct 24, 2018 11:05
--- NOTE | 2018-10-24 12:11 | Occ Therapy Progress Note ---
Therapy Progress Note Pt transferred to ICU. Will need new therapy orders due to higher level of care AILIN PRESCOTT OT Oct 24, 2018 12:11
--- NOTE | 2018-10-24 14:22 | Physical Therapy Daily Note ---
PT Daily Note-Current Subjective Orders received from Dr. Blackman. Patient appropriate to resume on previous treatment regimen and same PT goals. Patient in bed pre tx, agrees to PT, has no complaints of pain at rest. Patient much more lucid than yesterday. Appearance Patient in recliner post tx with nurse call, phone, tray, all needs met. Nurse notified that patient is in chair. Mental Status Patient Orientation: Person, Confused, Place Attachments: Ace Catheter, IV vapotherm Transfers Therapy Code Descriptions/Definitions Functional [place] Measure: 0=Not Assessed/NA 4=Minimal Assistance 1=Total Assistance 5=Supervision or Setup 2=Maximal Assistance 6=Modified [place] 3=Moderate Assistance 7=Complete [place] Therapy Quality Codes: 6 Independent with activity with or without an assistive device 5 Patient requires set up or clean up by helper. Patient completes activity by themselves 4 Supervision or touching assist (CGA). Bennett provide cues , steadying assist 3 The helper provides less than half the effort to complete the activity 2 The helper provides more than half the effort to complete the activity 1 Dependent. The helper does all the effort to complete an activity 7 Patient refused to complete or attempt activity 9 The patient did not perform the activity before the current illness or injury 88 Not attempted due to Medical conditions or safety concerns Transfers (B, C, W/C) (FIM): 4 Scootin Rollin Supine to/from Sit: 4 Sit to/from Stand: 4 Bed to/from Chair: 4 Min assist for supine to sit, CGA for sit <-> stand and transfers. Patient attempts to maintain TTWB but is not quite compliant with it. Weight Bearing Right Lower Extremity: Right Touch Toe Bearing Left Lower Extremity: Left Full Weight Bearing Gait Training Gait (FIM): 1 Distance: 3' Gait Level of Assist: 4 Gait Persons Needed: 1 Gait Assistive Device: FWW Cues for direction and positioning. Exercises Seated Therapy Exercises: Ankle pumps, Long arc quads Seated Reps: 15 Treatments bed mobility and transfers, ambulation, LE exercise Assessment Current Status: Fair Progress Improved general mobility, less confusion PT Short Term Goals Short Term Goals Time Frame: October 29, 2018 Transfers (B,C,W/C) (FIM): 4 Gait (FIM): 1 Gait Distance Comment: 20' Gait Level of Assist: 4 Gait Assistive Device: FWW PT Plan Problem List Problem List: Activity Tolerance, Functional Strength, Safety, Balance, Gait, Transfer, Bed Mobility, ROM Treatment/Plan Treatment Plan: Continue Plan of Care Treatment Plan: Bed Mobility, Education, Functional Activity Shant, Functional Strength, Gait, Safety, Therapeutic Exercise, Transfers Treatment Duration: October 29, 2018 Frequency: 11 times per week Estimated Hrs Per Day: .25 hour per day (15-30') Patient and/or Family Agrees t: Yes Safety Risks/Education Patient Education: Gait Training, Transfer Techniques, Correct Positioning, Safety Issues Teaching Recipient: Patient Teaching Methods: Demonstration, Discussion Response to Teaching: Reinforcement Needed Time/GCodes Time In: 1355 Time Out: 1410 Total Billed Treatment Time: 15 Total Billed Treatment 1 visit FA 15' MADHAVI HOOKS PT Oct 24, 2018 14:21
[2018-10-24] MEDS ORDERED: IRON SUCROSE 200 MG/10 ML (VENOFER) VIAL IV NR (19:15)
[2018-10-24] MEDS: LACTULOSE SYRUP 10GM/15ML (ENULOSE) 30ML UDC PO SCH (22:03)
[2018-10-25] VITALS (14 sets, daily range): BP systolic 115–148; BP diastolic 60–93
[2018-10-25 03:42] LABS: BASOPHILS % (AUTO) 0 % (0-10); EOSINOPHILS # (AUTO) 0.4 10^3/uL (0.0-0.3); EOSINOPHILS % (AUTO) 4 % (0-10); HEMATOCRIT 25 % (40-54); LYMPHOCYTES % (AUTO) 12 % (12-44); MEAN CORPUSCULAR HEMOGLOBIN 30 PG (25-34); MEAN CORPUSCULAR HGB CONC 32 G/DL (32-36); MEAN CORPUSCULAR VOLUME 94 FL (80-99); MEAN PLATELET VOLUME 9.6 FL (7.4-10.4); MONOCYTES # (AUTO) 1.2 X 10^3 (0.0-1.0); MONOCYTES % (AUTO) 14 % (0-12); NEUTROPHILS # (AUTO) 5.9 X 10^3 (1.8-7.8); NEUTROPHILS % (AUTO) 69 % (42-75); PLATELET COUNT 228 10^3/uL (130-400); RED CELL DISTRIBUTION WIDTH 12.4 % (10.0-14.5); WHITE BLOOD COUNT 8.5 10^3/uL (4.3-11.0)
[2018-10-25 04:11] LABS: BUN/CREATININE RATIO 24; CALCIUM 8.6 MG/DL (8.5-10.1); CARBON DIOXIDE 22 MMOL/L (21-32); CHLORIDE 104 MMOL/L (98-107); GFR ESTIMATED > 60; GLUCOSE 115 MG/DL (70-105); POTASSIUM 3.9 MMOL/L (3.6-5.0); SODIUM 137 MMOL/L (135-145)
[2018-10-25] MEDS: POTASSIUM CL 10MEQ/50ML IVPB 50 ML IV SCH (04:12)
[2018-10-25] MEDS: MAGNESIUM 1 GM/100 ML IVPB 100 ML IV SCH (04:12)
[2018-10-25] MEDS: KCL 20 MEQ TAB (K-DUR) PO SCH (04:12)
--- NOTE | 2018-10-25 05:55 | Pulmonary Progress Note ---
Subjective Time Seen by a Provider: 07:43 Subjective/Events-last exam SOB [place] with exertion. Sepsis Event Evaluation Height, Weight, BMI Height: 5'11.00" Weight: 174lbs. 3.0oz. 79.847333xy; 24.3 BMI Method:Stated Exam Exam Vital Signs Date Time Temp Pulse Resp B/P (MAP) Pulse Ox O2 Delivery O2 Flow Rate FiO2 10/25/18 05:00 87 18 126/64 (84) 97 High Flow N/C 7.00 10/25/18 04:00 98.7 10/25/18 04:00 83 15 127/69 (88) 97 High Flow N/C 7.00 10/25/18 04:00 High Flow N/C 7.00 10/25/18 03:00 88 17 115/67 (83) 97 High Flow N/C 7.00 10/25/18 02:00 85 14 133/72 (92) 98 High Flow N/C 7.00 10/25/18 01:00 85 10/25/18 01:00 81 16 126/76 (93) 99 High Flow N/C 7.00 10/25/18 00:00 78 16 116/68 (84) 100 High Flow N/C 7.00 10/25/18 00:00 High Flow N/C 7.00 10/24/18 23:59 97.2 10/24/18 23:11 High Flow N/C 7.00 98 10/24/18 23:00 82 26 127/69 (88) 98 High Flow N/C 7.00 10/24/18 22:50 High Flow N/C 7.00 10/24/18 22:00 79 26 128/79 (95) 97 High Flow N/C 10.00 10/24/18 21:00 85 15 124/73 (90) 98 Vapotherm 30.00 15.00 10/24/18 20:51 High Flow N/C 8.00 98 10/24/18 20:00 94 19 130/70 (90) 92 Vapotherm 30.00 15.00 10/24/18 20:00 Vapotherm 10.00 30 10/24/18 20:00 99.6 10/24/18 19:05 93 Vapotherm 10.00 30 10/24/18 19:00 101 8 164/101 (122) 94 Vapotherm 30.00 15.00 10/24/18 18:58 110 10/24/18 18:40 101.2 10/24/18 18:00 90 18 136/70 (92) Vapotherm 30.00 15.00 10/24/18 17:00 95 17 138/66 (90) Vapotherm 30.00 15.00 10/24/18 16:00 91 20 152/62 (92) Vapotherm 30.00 15.00 10/24/18 16:00 Vapotherm 15.00 30 10/24/18 15:00 102 20 104/64 (77) 96 Vapotherm 30.00 15.00 10/24/18 14:42 97 Vapotherm 15.00 30 10/24/18 14:00 99.5 10/24/18 14:00 93 20 140/71 (94) 98 Vapotherm 30.00 15.00 10/24/18 13:00 99.0 93 22 121/74 (90) 100 Vapotherm 30.00 15.00 10/24/18 12:43 96 10/24/18 12:00 Vapotherm 15.00 30 10/24/18 12:00 99.0 87 14 151/89 (109) 90 Vapotherm 30.00 15.00 10/24/18 11:00 99.1 78 14 110/69 (83) 92 Vapotherm 30.00 15.00 10/24/18 10:00 100.0 78 12 128/61 (83) 92 Vapotherm 30.00 15.00 10/24/18 09:00 80 15 120/62 (81) 92 Vapotherm 30.00 15.00 10/24/18 08:00 Vapotherm 15.00 30 10/24/18 08:00 90 12 134/51 (78) 94 Vapotherm 30.00 15.00 10/24/18 07:56 100.8 10/24/18 07:55 100.8 10/24/18 07:55 100.8 10/24/18 07:00 85 10/24/18 07:00 82 11 109/52 (71) 94 Vapotherm 30.00 15.00 10/24/18 06:55 94 Vapotherm 15.00 30 10/24/18 06:55 101.7 4/26/19 06:00 81 18 134/56 (82) 93 Vapotherm 30.00 15.00 I & O 10/25/18 07:00 Intake Total 1040 ml Output Total 1650 ml Balance -610 ml Height & Weight Height: 5'11.00" Weight: 174lbs. 3.0oz. 79.852734yh; 24.3 BMI Method:Stated General Appearance: No Apparent Distress, WD/WN, Chronically ill, Cachetic HEENT: PERRL/EOMI, Normal ENT Inspection Neck: Normal Inspection Respiratory: Chest Non Tender, Lungs Clear, Normal Breath Sounds, No Accessory Muscle Use, No Respiratory Distress Cardiovascular: Regular Rate, Rhythm, No Edema, No Gallop, No JVD, No Murmur, Normal Peripheral Pulses, Other Capillary Refill: Less Than 3 Seconds Peripheral Pulses: 2+ Dorsalis Pedis (R), 2+ Left Dors-Pedis (L), 2+ Radial Pulses (R), 2+ Radial Pulses (L) Gastrointestinal: non tender, soft Extremity: Normal Capillary Refill, Normal Inspection, No Calf Tenderness, No Pedal Edema Neurologic/Psychiatric: Alert, Oriented x3, No Motor/Sensory Deficits, Normal Mood/Affect, Disoriented Skin: Normal Color, Warm/Dry Results Lab Laboratory Tests 10/24/18 03:37 10/25/18 03:10 Assessment/Plan Assessment/Plan Closed right hip fracture s/p repair Metabolic encephalopathy/hospital psychosis -Risperadol, Hypoxia, respiratory distress -Check CXR -ABG reviewed C02 38 -on High flow NC Prostate cancer hx Anemia -Monitor SYD DAVIS DO Oct 25, 2018 05:55
[2018-10-25] MEDS: LACTULOSE SYRUP 10GM/15ML (ENULOSE) 30ML UDC PO SCH ×2 (08:18→20:23)
[2018-10-25] MEDS: POLYETHYLENE GLYCOL 17 GM (MIRALAX) PACK PO SCH ×2 (08:19→20:23)
[2018-10-25] MEDS: RT-ALBUTEROL SULF 2.5 MG/3 ML PRE-MIX VIAL INH SCH ×3 (08:19→19:27)
[2018-10-25] MEDS: SENNA W/DOCUSATE (SENOKOT S) TABLET PO SCH ×4 (08:20→20:24)
[2018-10-25] MEDS: risperiDONE 1 MG (RisperDAL) TAB PO SCH ×2 (08:20→20:22)
--- NOTE | 2018-10-25 08:32 | Progress Note-Hospitalist ---
Subjective HPI/CC On Admission Date Seen by Provider: Oct 25, 2018 Time Seen by Provider: 08:00 The patient is an 82-year-old former. 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 He has a large tractor and gets up into it on a ramp. There is a handrail but also a gap and he missed it and fell awkwardly landing on his hip. His health has otherwise been good. Subjective/Events-last exam Delirium is resolving Niece at the bedside Updated her on the plan to pursue inpatient rehab on Saturday and she misunderstood and thought that we would not provide any therapy or ambulation until Saturday and I clarified myself We will start prior authorization with insurance on Saturday Considering hypoxia and delirium and the need for close monitoring due to advanced age at 82 years old and frail status he meets criteria for inpatient rehab for 21/01 physician supervision in case decompensation occurs Reviewed labs and started iron infusions yesterday due to unmeasurable iron level Overall doing better with bowels and had a large one last night We will discontinue catheter and transfer to fourth floor Review of Systems General: Fatigue Neurological: Confusion Objective Exam Vital Signs Vital Signs Date Time Temp Pulse Resp B/P (MAP) Pulse Ox O2 Delivery O2 Flow Rate FiO2 10/25/18 16:00 High Flow N/C 3.00 10/25/18 14:43 97 10/25/18 12:00 98.0 79 18 123/65 (84) 10/24/18 23:11 98 Capillary Refill : Less Than 3 SecondsLess Than 3 Seconds General Appearance: No Apparent Distress, WD/WN, Chronically ill, Cachetic HEENT: PERRL/EOMI, Normal ENT Inspection Neck: Normal Inspection Respiratory: Chest Non Tender, Lungs Clear, Normal Breath Sounds, No Accessory Muscle Use, No Respiratory Distress Cardiovascular: Regular Rate, Rhythm, No Edema, No Gallop, No JVD, No Murmur, Normal Peripheral Pulses Gastrointestinal: Normal Bowel Sounds, No Organomegaly, No Pulsatile Mass Back: Normal Inspection, No CVA Tenderness Extremity: Normal Capillary Refill, Normal Inspection, No Calf Tenderness, No Pedal Edema Neurologic/Psychiatric: Alert, Oriented x3, No Motor/Sensory Deficits, Normal Mood/Affect, Disoriented Skin: Normal Color, Warm/Dry Results/Procedures Lab Laboratory Tests 10/25/18 03:10 Patient resulted labs reviewed. Assessment/Plan Assessment and Plan Assess & Plan/Chief Complaint Assessment: s/p right hip fracture repair POD # 4 Acute hypoxia resolving Acute delirium resolving h/o prostate cancer Post op anemia acute blood loss Severe iron deficiency acute on chronic so placed on IV iron Plan: IRF Saturday will start prior auth then BM regimen to be maintained Monitor for urinary retention and confusion Appreciate Dr Blackman Diagnosis/Problems Diagnosis/Problems (1) Closed right hip fracture Status: Acute Qualifiers: Encounter type: initial encounter Qualified Codes: S72.001A - Fracture of unspecified part of neck of right femur, initial encounter for closed fracture (2) History of prostate cancer Status: Chronic (3) Acute blood loss anemia Status: Acute (4) Advanced age Status: Chronic (5) Delirium Status: Acute (6) Hypoxia Status: Acute (7) Constipation Status: Resolved Qualifiers: Constipation type: slow transit constipation Qualified Codes: K59.01 - Slow transit constipation Resolution Date/Time: 10/25/18 @ 16:39 (8) Iron deficiency Status: Acute Clinical Quality Measures DVT/VTE Risk/Contraindication: Risk Factor Score Per Nursin RFS Level Per Nursing on Admit: 4+=Very High BLAINE MALONEY DO Oct 25, 2018 08:31
--- NOTE | 2018-10-25 08:50 | Diagnostic Imaging Report ---
INDICATION: Dyspnea. COMPARISON: 10/24/2018. DISCUSSION: Single portable upright view of the chest was obtained. Stable normal heart size. No focal consolidation, pleural fluid, or pneumothorax. No osseous abnormality. IMPRESSION: 1. Negative chest. Dictated by: Dictated on workstation # [id number]
[2018-10-25] MEDS: BISACODYL 10 MG SUPP (DULCOLAX) PR SCH (09:00)
--- NOTE | 2018-10-25 09:45 | NUR ---
Patient transferred to 417 per BED accompanied by FAMILY AND ICU STAFF. Patient and family notified and understand transfer. Personal belongings with patient. Report given to THIS RN FROM [employer] .
--- NOTE | 2018-10-25 09:45 | NUR ---
RECEIVED ORDERS FROM DR. MALONEY TO D/C CATH AND TO TRANSFER TO [facility] TELEMETRY
--- NOTE | 2018-10-25 11:40 | NUR ---
NOTE THAT RT ADVISED THIS RN THAT PT HAS BEEN TITRATED DOWN TO 1L/NC HI FLOW
--- NOTE | 2018-10-25 12:47 | Physical Therapy Daily Note ---
PT Daily Note-Current Subjective Pt denied pain before and after treatment. Pt requested urinal during treatment. Pt very compliant, pleasant and talkative. Mental Status Patient Orientation: Person, Place, Situation Transfers Therapy Code Descriptions/Definitions Functional [place] Measure: 0=Not Assessed/NA 4=Minimal Assistance 1=Total Assistance 5=Supervision or Setup 2=Maximal Assistance 6=Modified [place] 3=Moderate Assistance 7=Complete [place] Therapy Quality Codes: 6 Independent with activity with or without an assistive device 5 Patient requires set up or clean up by helper. Patient completes activity by themselves 4 Supervision or touching assist (CGA). [place] provide cues , steadying assist 3 The helper provides less than half the effort to complete the activity 2 The helper provides more than half the effort to complete the activity 1 Dependent. The helper does all the effort to complete an activity 7 Patient refused to complete or attempt activity 9 The patient did not perform the activity before the current illness or injury 88 Not attempted due to Medical conditions or safety concerns Min A (R) LE out of bed. Requires vc's for sequence for transfers out of bed. Weight Bearing Right Lower Extremity: Right Touch Toe Bearing Left Lower Extremity: Left Full Weight Bearing Gait Training Gait Assistive Device: FWW Pt amb 6ft with FWW and CGA, vc's for sequence every step required. Pt able to maintain TTWB (R) LE throughout. Exercises Supine Ex: LE Protocol Supine Reps: 20 Assessment Current Status: Good Progress Pt progressing appropriately. Pt surprised he was able to ambulate today. Pt educated on WB status, pt verbalized understanding and was compliant. Pt does require extra instruction and step by step vc's for sequence but good performance otherwise. Pt up in chair with call light, legs elevated. O2 per nasal canula throughout treatment. Communicated with nurse his need for instruction on WBing status and sequence when returning to his bed. Pt appeared to tolerate well. Denied pain before and after treatment. PT Short Term Goals Short Term Goals Time Frame: October 29, 2018 Transfers (B,C,W/C) (FIM): 4 Gait (FIM): 1 Gait Distance Comment: 20' Gait Level of Assist: 4 Gait Assistive Device: FWW PT Plan Treatment/Plan Treatment Plan: Continue Plan of Care Treatment Plan: Bed Mobility, Education, Functional Activity Shant, Functional Strength, Gait, Safety, Therapeutic Exercise, Transfers Treatment Duration: October 29, 2018 Frequency: 11 times per week Estimated Hrs Per Day: .25 hour per day (15-30') Patient and/or Family Agrees t: Yes Time/GCodes Time In: 1120 Time Out: 1210 Total Billed Treatment Time: 50 Total Billed Treatment 1, Phil ELDRIDGE, Ex BORIS GREEN CPTA Oct 25, 2018 12:47
--- NOTE | 2018-10-25 15:27 | NUR ---
NOTE THAT PT GOT PT TO CHAIR AND STAFF VOICED "WALKER, R LEG, L LEG " PT VOICED TO DO -- PT VERY CONFUSED AND STAFFS ATTEMPTS TO GET HIM TO USE WALKER AND TOUCH TOE WT BEARING ON R WHERE NOT HELPING PT -- STAFF WILL CONTINUE TO WORK WITH PT --
[2018-10-26 00:20] VITALS: BP 132/71
[2018-10-26] MEDS: ACETAMINOPHEN 325 MG TABLET PO PRN (01:03)
[2018-10-26 04:00] VITALS: BP 145/75
[2018-10-26 05:51] LABS: BASOPHILS % (AUTO) 0 % (0-10); EOSINOPHILS # (AUTO) 0.3 10^3/uL (0.0-0.3); EOSINOPHILS % (AUTO) 4 % (0-10); HEMATOCRIT 26 % (40-54); HEMOGLOBIN 8.5 G/DL (13.3-17.7); LYMPHOCYTES # (AUTO) 1.3 X 10^3 (1.0-4.0); LYMPHOCYTES % (AUTO) 14 % (12-44); MEAN CORPUSCULAR HEMOGLOBIN 31 PG (25-34); MEAN CORPUSCULAR HGB CONC 33 G/DL (32-36); MEAN CORPUSCULAR VOLUME 94 FL (80-99); MEAN PLATELET VOLUME 9.3 FL (7.4-10.4); MONOCYTES # (AUTO) 1.1 X 10^3 (0.0-1.0); MONOCYTES % (AUTO) 13 % (0-12); NEUTROPHILS # (AUTO) 6.2 X 10^3 (1.8-7.8); NEUTROPHILS % (AUTO) 69 % (42-75); PLATELET COUNT 269 10^3/uL (130-400); RED CELL DISTRIBUTION WIDTH 12.3 % (10.0-14.5); WHITE BLOOD COUNT 8.9 10^3/uL (4.3-11.0)
[2018-10-26 06:14] LABS: ALANINE AMINOTRANSFERASE 21 U/L (0-55); ALKALINE PHOSPHATASE 64 U/L (40-136); BILIRUBIN,TOTAL 0.8 MG/DL (0.1-1.0); BUN/CREATININE RATIO 27; CARBON DIOXIDE 22 MMOL/L (21-32); CHLORIDE 103 MMOL/L (98-107); CREATININE SERUM 0.74 MG/DL (0.60-1.30); GFR ESTIMATED > 60; GLUCOSE 114 MG/DL (70-105); POTASSIUM 3.8 MMOL/L (3.6-5.0); SODIUM 138 MMOL/L (135-145); TOTAL PROTEIN 5.9 GM/DL (6.4-8.2)
[2018-10-26] MEDS: RT-ALBUTEROL SULF 2.5 MG/3 ML PRE-MIX VIAL INH SCH ×3 (07:09→21:18)
--- NOTE | 2018-10-26 07:20 | Progress Note-Hospitalist ---
Subjective HPI/CC On Admission Date Seen by Provider: Oct 26, 2018 Time Seen by Provider: 06:30 The patient is an 82-year-old former. 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 He has a large tractor and gets up into it on a ramp. There is a handrail but also a gap and he missed it and fell awkwardly landing on his hip. His health has otherwise been good. Subjective/Events-last exam Patient desperately wants to go home due to mentally challenged daughter and his is in poor health Counseled the patient on the need to actually be prepared to go home instead of just sitting there as he is proposing to do Delirium is now resolved Hypoxia is resolved Bowels are moving Urinating well Checked meds and labs If patient goes home he will have a decline in status due to frail status Review of Systems Musculoskeletal: leg pain Objective Exam Vital Signs Vital Signs Date Time Temp Pulse Resp B/P (MAP) Pulse Ox O2 Delivery O2 Flow Rate FiO2 10/26/18 14:48 91 Room Air 10/26/18 08:00 99.2 87 18 145/75 (98) 10/25/18 19:27 1.00 10/24/18 23:11 98 Capillary Refill : Less Than 3 SecondsLess Than 3 Seconds General Appearance: No Apparent Distress, WD/WN, Chronically ill, Cachetic HEENT: PERRL/EOMI, Normal ENT Inspection Neck: Normal Inspection Respiratory: Chest Non Tender, Lungs Clear, Normal Breath Sounds, No Accessory Muscle Use, No Respiratory Distress Cardiovascular: Regular Rate, Rhythm, No Edema, No Gallop, No JVD, No Murmur, Normal Peripheral Pulses Gastrointestinal: Normal Bowel Sounds, No Organomegaly, No Pulsatile Mass Back: Normal Inspection, No CVA Tenderness Extremity: Normal Capillary Refill, Normal Inspection, Normal Range of Motion ( limited ROM leg), No Calf Tenderness, No Pedal Edema Neurologic/Psychiatric: Alert, Oriented x3, No Motor/Sensory Deficits, Normal Mood/Affect Skin: Normal Color, Warm/Dry Results/Procedures Lab Laboratory Tests 10/26/18 05:41 Patient resulted labs reviewed. Assessment/Plan Assessment and Plan Assess & Plan/Chief Complaint Assessment: s/p right hip fracture repair POD # 5 Acute hypoxia resolving Acute delirium resolving h/o prostate cancer Post op anemia acute blood loss Severe iron deficiency acute on chronic so placed on IV iron Plan: IRF Saturday will start prior auth then BM regimen to be maintained Monitor for urinary retention and confusion Appreciate Dr Blackman Diagnosis/Problems Diagnosis/Problems (1) Closed right hip fracture Status: Acute Qualifiers: Encounter type: initial encounter Qualified Codes: S72.001A - Fracture of unspecified part of neck of right femur, initial encounter for closed fracture (2) History of prostate cancer Status: Chronic (3) Acute blood loss anemia Status: Acute (4) Advanced age Status: Chronic (5) Delirium Status: Acute (6) Hypoxia Status: Acute (7) Constipation Status: Resolved Qualifiers: Constipation type: slow transit constipation Qualified Codes: K59.01 - Slow transit constipation Resolution Date/Time: 10/25/18 @ 16:39 (8) Iron deficiency Status: Acute Clinical Quality Measures DVT/VTE Risk/Contraindication: Risk Factor Score Per Nursin RFS Level Per Nursing on Admit: 4+=Very High BLAINE MALONEY DO Oct 26, 2018 07:19
--- NOTE | 2018-10-26 07:37 | Pulmonary Progress Note ---
Subjective Time Seen by a Provider: 14:49 Subjective/Events-last exam No complications noted. Sepsis Event Evaluation Height, Weight, BMI Height: 5'11.00" Weight: 174lbs. 3.0oz. 79.134310sa; 24.3 BMI Method:Stated Exam Exam Vital Signs Date Time Temp Pulse Resp B/P (MAP) Pulse Ox O2 Delivery O2 Flow Rate FiO2 10/26/18 07:09 91 Room Air 10/26/18 04:00 99.2 87 18 145/75 (98) 96 Room Air 10/26/18 00:20 99.2 84 18 132/71 (91) 93 Room Air 10/25/18 20:11 99.6 95 16 127/60 (82) 97 Room Air 10/25/18 20:00 Room Air 10/25/18 19:27 94 High Flow N/C 1.00 10/25/18 16:00 High Flow N/C 3.00 10/25/18 15:30 98.9 92 16 148/68 (94) 96 High Flow N/C 1.00 10/25/18 14:43 97 High Flow N/C 3.00 10/25/18 12:00 98.0 79 18 123/65 (84) 98 High Flow N/C 3.00 10/25/18 12:00 High Flow N/C 3.00 10/25/18 10:00 98.0 79 16 123/65 (84) 98 High Flow N/C 3.00 10/25/18 09:55 High Flow N/C 3.00 10/25/18 09:00 85 15 136/67 (90) 95 High Flow N/C 3.00 10/25/18 08:19 94 High Flow N/C 4.00 10/25/18 08:00 High Flow N/C 4.00 10/25/18 08:00 97 8 137/93 (108) 96 High Flow N/C 3.00 10/25/18 08:00 98.1 I & O 10/26/18 07:00 Intake Total 1000 ml Output Total 1025 ml Balance -25 ml Height & Weight Height: 5'11.00" Weight: 174lbs. 3.0oz. 79.402247ic; 24.3 BMI Method:Stated General Appearance: No Apparent Distress, WD/WN, Chronically ill, Cachetic HEENT: PERRL/EOMI, Normal ENT Inspection Neck: Normal Inspection Respiratory: Chest Non Tender, Lungs Clear, Normal Breath Sounds, No Accessory Muscle Use, No Respiratory Distress Cardiovascular: Regular Rate, Rhythm, No Edema, No Gallop, No JVD, No Murmur, Normal Peripheral Pulses Capillary Refill: Less Than 3 Seconds Peripheral Pulses: 2+ Dorsalis Pedis (R), 2+ Left Dors-Pedis (L), 2+ Radial Pulses (R), 2+ Radial Pulses (L) Gastrointestinal: non tender, soft Extremity: Normal Capillary Refill, Normal Inspection, No Calf Tenderness, No Pedal Edema Neurologic/Psychiatric: Alert, Oriented x3, No Motor/Sensory Deficits, Normal Mood/Affect, Disoriented Skin: Normal Color, Warm/Dry Results Lab Laboratory Tests 10/25/18 03:10 10/26/18 05:41 Assessment/Plan Assessment/Plan Closed right hip fracture s/p repair Metabolic encephalopathy/hospital psychosis -Risperadol, Hypoxia, respiratory distress -- improved -ABG reviewed C02 38 Prostate cancer hx Anemia -Monitor SYD DAVIS DO Oct 26, 2018 07:37
[2018-10-26 08:00] VITALS: BP 145/75
[2018-10-26] MEDS: risperiDONE 1 MG (RisperDAL) TAB PO SCH ×2 (08:00→20:55)
[2018-10-26] MEDS: LACTULOSE SYRUP 10GM/15ML (ENULOSE) 30ML UDC PO SCH ×2 (08:00→20:54)
[2018-10-26] MEDS: SENNA W/DOCUSATE (SENOKOT S) TABLET PO SCH ×4 (08:01→20:58)
[2018-10-26] MEDS: BISACODYL 10 MG SUPP (DULCOLAX) PR SCH (08:01)
[2018-10-26] MEDS: IRON SUCROSE 200 MG/10 ML (VENOFER) VIAL IV SCH (08:02)
[2018-10-26] MEDS: POLYETHYLENE GLYCOL 17 GM (MIRALAX) PACK PO SCH ×2 (08:03→20:58)
--- NOTE | 2018-10-26 14:08 | Physical Therapy Daily Note ---
PT Daily Note-Current Subjective Pt agreeble but confused. Re-oriented to place and situation. Pt requests to go to the restroom. Mental Status Patient Orientation: Confused Transfers Therapy Code Descriptions/Definitions Functional [place] Measure: 0=Not Assessed/NA 4=Minimal Assistance 1=Total Assistance 5=Supervision or Setup 2=Maximal Assistance 6=Modified [place] 3=Moderate Assistance 7=Complete [place] Therapy Quality Codes: 6 Independent with activity with or without an assistive device 5 Patient requires set up or clean up by helper. Patient completes activity by themselves 4 Supervision or touching assist (CGA). [place] provide cues , steadying assist 3 The helper provides less than half the effort to complete the activity 2 The helper provides more than half the effort to complete the activity 1 Dependent. The helper does all the effort to complete an activity 7 Patient refused to complete or attempt activity 9 The patient did not perform the activity before the current illness or injury 88 Not attempted due to Medical conditions or safety concerns Transfers (B, C, W/C) (FIM): 4 Weight Bearing Right Lower Extremity: Right Touch Toe Bearing Left Lower Extremity: Left Full Weight Bearing Gait Training Ambulate 15ft to and from the restroom. Pt required frequent verbal cues for TTWB on the right LE. Pt very fatigued upon return trip from restroom to bed. Exercises Supine Ex: LE Protocol Supine Reps: 10 Assessment Pt shows improved mobility. He is having problems with confusion and is at risk for falls due to getting out of bed unassisted. Pt able to follow cues for wt bearing but short term memory was poor. Pt will benefit from continued therpay. PT Short Term Goals Short Term Goals Time Frame: October 29, 2018 Transfers (B,C,W/C) (FIM): 4 Gait (FIM): 1 Gait Distance Comment: 20' Gait Level of Assist: 4 Gait Assistive Device: FWW PT Plan Treatment/Plan Treatment Plan: Continue Plan of Care Treatment Plan: Bed Mobility, Education, Functional Activity Shant, Functional Strength, Gait, Safety, Therapeutic Exercise, Transfers Treatment Duration: October 29, 2018 Frequency: 11 times per week Estimated Hrs Per Day: .25 hour per day (15-30') Patient and/or Family Agrees t: Yes Time/GCodes Time In: 1330 Time Out: 1350 Total Billed Treatment Time: 20 Total Billed Treatment visit, exercise 12 min, gait 8 min NICHOLE MACHADO PT Oct 26, 2018 14:08
[2018-10-26 16:45] VITALS: BP 134/66
[2018-10-26 23:31] VITALS: BP 129/70
--- NOTE | 2018-10-27 07:14 | Pulmonary Progress Note ---
SYD DAVIS DO 10/27/18 0714: Subjective Time Seen by a Provider: 15:09 Subjective/Events-last exam Pt appears to be doing better. Sepsis Event Evaluation Height, Weight, BMI Height: 5'11.00" Weight: 174lbs. 3.0oz. 79.014630jf; 24.3 BMI Method:Stated Exam Exam Vital Signs Date Time Temp Pulse Resp B/P (MAP) Pulse Ox O2 Delivery O2 Flow Rate FiO2 10/26/18 23:31 98.6 87 24 129/70 (89) 94 Room Air 10/26/18 21:18 91 Room Air 10/26/18 20:00 Room Air 10/26/18 16:45 98.3 85 20 134/66 (88) 92 Room Air 10/26/18 14:48 91 Room Air 10/26/18 08:05 Room Air 10/26/18 08:00 99.2 87 18 145/75 (98) 96 Room Air I & O 10/27/18 07:00 Intake Total 1970 ml Output Total 925 ml Balance 1045 ml Height & Weight Height: 5'11.00" Weight: 174lbs. 3.0oz. 79.793449rw; 24.3 BMI Method:Stated General Appearance: No Apparent Distress, WD/WN, Chronically ill, Cachetic HEENT: PERRL/EOMI, Normal ENT Inspection Neck: Normal Inspection Respiratory: Chest Non Tender, Lungs Clear, Normal Breath Sounds, No Accessory Muscle Use, No Respiratory Distress Cardiovascular: Regular Rate, Rhythm, No Edema, No Gallop, No JVD, No Murmur, Normal Peripheral Pulses Capillary Refill: Less Than 3 Seconds Peripheral Pulses: 2+ Dorsalis Pedis (R), 2+ Left Dors-Pedis (L), 2+ Radial Pulses (R), 2+ Radial Pulses (L) Gastrointestinal: non tender, soft Extremity: Normal Capillary Refill, Normal Inspection, Normal Range of Motion ( limited ROM leg), No Calf Tenderness, No Pedal Edema Neurologic/Psychiatric: Alert, Oriented x3, No Motor/Sensory Deficits, Normal Mood/Affect Skin: Normal Color, Warm/Dry Results Lab Laboratory Tests 10/26/18 05:41 Assessment/Plan Assessment/Plan Closed right hip fracture s/p repair Metabolic encephalopathy/hospital psychosis - improved -Risperadol BID Hypoxia, respiratory distress -- resolved -on RA -Using incentive spirometer Prostate cancer hx Anemia -Monitor ABI [employer]AK[employer] STUDENT 10/27/18 0821: Subjective Date Seen by a Provider: Oct 27, 2018 Time Seen by a Provider: 08:22 Subjective/Events-last exam Patient is doing well on RA. No respiratory distress. Using incentive spirometer. Currently alert and oriented. Experiencing expected post surgical pains. Exam Exam General Appearance: Chronically ill, Cachetic HEENT: PERRL/EOMI, Other (Notably sunken eyes) Respiratory: Chest Non Tender, Lungs Clear, Normal Breath Sounds, No Accessory Muscle Use, No Respiratory Distress Cardiovascular: Regular Rate, Rhythm, No Edema Extremity: Normal Inspection, No Pedal Edema Neurologic/Psychiatric: Alert, Oriented x3, Normal Mood/Affect Skin: Warm/Dry Assessment/Plan Assessment/Plan Closed right hip fracture s/p repair Metabolic encephalopathy/hospital psychosis - improved -Risperadol BID Hypoxia, respiratory distress -- resolved -on RA -Using incentive spirometer Prostate cancer hx Anemia -Monitor SYD DAVIS DO Oct 27, 2018 07:14 ABI [employer] ST[employer]ENT Oct 27, 2018 08:21
[2018-10-27 08:00] VITALS: BP 150/78
[2018-10-27] MEDS: POLYETHYLENE GLYCOL 17 GM (MIRALAX) PACK PO SCH ×2 (08:28→20:20)
[2018-10-27] MEDS: LACTULOSE SYRUP 10GM/15ML (ENULOSE) 30ML UDC PO SCH ×2 (08:28→20:20)
[2018-10-27] MEDS: SENNA W/DOCUSATE (SENOKOT S) TABLET PO SCH ×4 (08:28→20:20)
[2018-10-27] MEDS: BISACODYL 10 MG SUPP (DULCOLAX) PR SCH (08:29)
[2018-10-27] MEDS: risperiDONE 1 MG (RisperDAL) TAB PO SCH ×2 (08:33→20:19)
--- NOTE | 2018-10-27 08:39 | Physical Therapy Daily Note ---
PT Daily Note-Current Subjective Patient in recliner eating breakfast, agrees to PT, has no complaints of pain at rest. Appearance Patient in recliner post tx with nurse call, phone, tray, chair alarm on. Patient wanted to go back to chair to finish his breakfast. Mental Status Patient Orientation: Person, Confused Transfers Therapy Code Descriptions/Definitions Functional [place] Measure: 0=Not Assessed/NA 4=Minimal Assistance 1=Total Assistance 5=Supervision or Setup 2=Maximal Assistance 6=Modified [place] 3=Moderate Assistance 7=Complete [place] Therapy Quality Codes: 6 Independent with activity with or without an assistive device 5 Patient requires set up or clean up by helper. Patient completes activity by themselves 4 Supervision or touching assist (CGA). [place] provide cues , steadying assist 3 The helper provides less than half the effort to complete the activity 2 The helper provides more than half the effort to complete the activity 1 Dependent. The helper does all the effort to complete an activity 7 Patient refused to complete or attempt activity 9 The patient did not perform the activity before the current illness or injury 88 Not attempted due to Medical conditions or safety concerns Transfers (B, C, W/C) (FIM): 4 Sit to/from Stand: 4 Min assist for sit to stand, patient needs cues for hand placement with every sit to stand. Weight Bearing Right Lower Extremity: Right Touch Toe Bearing Left Lower Extremity: Left Full Weight Bearing Gait Training Gait (FIM): 1 Distance: 30' Gait Level of Assist: 4 Gait Persons Needed: 1 Gait Assistive Device: FWW Min assist for ambulation, patient seems to be able to comply with TTWB. Patient needs cue for purse lip breathing, he got a little dizzy during ambulation. Had to sit on the bed for a few seconds before standing and making the rest of the way to the recliner. Exercises Seated Therapy Exercises: Ankle pumps, Long arc quads Seated Reps: 15 Treatments transfers, ambulation, LE exercises Assessment Current Status: Fair Progress improved ambulation PT Short Term Goals Short Term Goals Time Frame: October 29, 2018 Transfers (B,C,W/C) (FIM): 4 Gait (FIM): 1 Gait Distance Comment: 20' Gait Level of Assist: 4 Gait Assistive Device: FWW PT Plan Problem List Problem List: Activity Tolerance, Functional Strength, Safety, Balance, Gait, Transfer, Bed Mobility, ROM Treatment/Plan Treatment Plan: Continue Plan of Care Treatment Plan: Bed Mobility, Education, Functional Activity Shant, Functional Strength, Gait, Safety, Therapeutic Exercise, Transfers Treatment Duration: October 29, 2018 Frequency: 11 times per week Estimated Hrs Per Day: .25 hour per day (15-30') Patient and/or Family Agrees t: Yes Safety Risks/Education Patient Education: Gait Training, Transfer Techniques, Correct Positioning, Safety Issues Teaching Recipient: Patient Teaching Methods: Demonstration, Discussion Response to Teaching: Reinforcement Needed Time/GCodes Time In: 0820 Time Out: 0835 Total Billed Treatment Time: 15 Total Billed Treatment 1 visit FA 15' MADHAVI HOOKS PT Oct 27, 2018 08:39
--- NOTE | 2018-10-27 09:36 | Progress Note-Hospitalist ---
Subjective HPI/CC On Admission Date Seen by Provider: Oct 27, 2018 Time Seen by Provider: 09:10 The patient is an 82-year-old former. 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 He has a large tractor and gets up into it on a ramp. There is a handrail but also a gap and he missed it and fell awkwardly landing on his hip. His health has otherwise been good. Subjective/Events-last exam Pt doing better today. Delirium resolved but still on Risperdal BID low dose. No longer hypoxic maintained on room air with adequate O2 sat. Bowels are moving and taking Miralax on a regular basis. Pain is controlled with the pain medication. Iron infusions tolerated, Hgb stable. He was completely independent at home prior to admission and now he is a one person assist with a walker and at high risk for falls. He wants to get home to take care of his mentally challenged daughter and who is in ill health so will require intensive therapy sessions in inpatient rehab along with close monitoring of lab abnormalities and hypoxia and delirium and then will return back home for independent living. Review of Systems General: Fatigue Musculoskeletal: leg pain Objective Exam Vital Signs Vital Signs Date Time Temp Pulse Resp B/P (MAP) Pulse Ox O2 Delivery O2 Flow Rate FiO2 10/27/18 19:27 92 Room Air 10/27/18 16:30 99.1 116 18 187/81 (116) 10/25/18 19:27 1.00 10/24/18 23:11 98 Capillary Refill : Less Than 3 SecondsLess Than 3 Seconds General Appearance: No Apparent Distress, WD/WN, Chronically ill, Cachetic HEENT: PERRL/EOMI Neck: Normal Inspection Respiratory: Chest Non Tender, Lungs Clear, Normal Breath Sounds, No Accessory Muscle Use, No Respiratory Distress Cardiovascular: Regular Rate, Rhythm, No Edema Gastrointestinal: Normal Bowel Sounds, No Organomegaly, No Pulsatile Mass Back: Normal Inspection, No CVA Tenderness Extremity: Normal Inspection, No Pedal Edema Neurologic/Psychiatric: Alert, Oriented x3, Normal Mood/Affect Skin: Warm/Dry Results/Procedures Lab Patient resulted labs reviewed. Assessment/Plan Assessment and Plan Assess & Plan/Chief Complaint Assessment: s/p right hip fracture repair POD # 6 Acute hypoxia resolving Acute delirium resolving h/o prostate cancer Post op anemia acute blood loss Severe iron deficiency acute on chronic so placed on IV iron Plan: IRF required will start prior auth today BM regimen to be maintained Monitor for urinary retention and confusion Appreciate Dr Blackman Diagnosis/Problems Diagnosis/Problems (1) Closed right hip fracture Status: Acute Qualifiers: Encounter type: initial encounter Qualified Codes: S72.001A - Fracture of unspecified part of neck of right femur, initial encounter for closed fracture (2) History of prostate cancer Status: Chronic (3) Acute blood loss anemia Status: Acute (4) Advanced age Status: Chronic (5) Delirium Status: Acute (6) Hypoxia Status: Acute (7) Constipation Status: Resolved Qualifiers: Constipation type: slow transit constipation Qualified Codes: K59.01 - Slow transit constipation Resolution Date/Time: 10/25/18 @ 16:39 (8) Iron deficiency Status: Acute Clinical Quality Measures DVT/VTE Risk/Contraindication: Risk Factor Score Per Nursin RFS Level Per Nursing on Admit: 4+=Very High BLAINE MALONEY DO Oct 27, 2018 09:36
--- NOTE | 2018-10-27 13:59 | NUR ---
IRF Pre-certification process initiated and clinical information submitted to [facility], awaiting determination. Addendum: 10/28/18 at 1508 by SEPTEMBER Lois BARKER Received denial for admission to [facility]. Dr. Ortiz notified. [id number] process initiated.
--- NOTE | 2018-10-27 14:40 | Physical Therapy Daily Note ---
PT Daily Note-Current Subjective Patient in recliner pre tx, agrees to PT, has no pain at rest. Patient seems much more alert and oriented this afternoon. Appearance Patient in recliner per patient request to visit with company. Patient has nurse call, phone, tray, all needs met. Mental Status Patient Orientation: Person, Place, Situation Transfers Therapy Code Descriptions/Definitions Functional [place] Measure: 0=Not Assessed/NA 4=Minimal Assistance 1=Total Assistance 5=Supervision or Setup 2=Maximal Assistance 6=Modified [place] 3=Moderate Assistance 7=Complete [place] Therapy Quality Codes: 6 Independent with activity with or without an assistive device 5 Patient requires set up or clean up by helper. Patient completes activity by themselves 4 Supervision or touching assist (CGA). [place] provide cues , steadying assist 3 The helper provides less than half the effort to complete the activity 2 The helper provides more than half the effort to complete the activity 1 Dependent. The helper does all the effort to complete an activity 7 Patient refused to complete or attempt activity 9 The patient did not perform the activity before the current illness or injury 88 Not attempted due to Medical conditions or safety concerns Transfers (B, C, W/C) (FIM): 4 Sit to/from Stand: 4 CGA for sit to stand, cues for hand placement Weight Bearing Right Lower Extremity: Right Touch Toe Bearing Left Lower Extremity: Left Full Weight Bearing Gait Training Gait (FIM): 1 Distance: 25' Gait Level of Assist: 4 Gait Persons Needed: 1 Gait Assistive Device: FWW Patient had no dizziness or SOB, he may have been bearing a little weight through his right leg but was trying to maintain TTWB. Much better ambulation Exercises Supine Ex: Quad Set, Straight leg raise Supine Reps: 10 (with legs elevated in recliner) Seated Therapy Exercises: Ankle pumps, Long arc quads Seated Reps: 15 Treatments transfers, ambulation, LE exercises Assessment Current Status: Fair Progress much better ambulation, no dizziness PT Short Term Goals Short Term Goals Time Frame: October 29, 2018 Transfers (B,C,W/C) (FIM): 4 Gait (FIM): 1 Gait Distance Comment: 20' Gait Level of Assist: 4 Gait Assistive Device: FWW PT Plan Problem List Problem List: Activity Tolerance, Functional Strength, Safety, Balance, Gait, Transfer, Bed Mobility, ROM Treatment/Plan Treatment Plan: Continue Plan of Care Treatment Plan: Bed Mobility, Education, Functional Activity Shant, Functional Strength, Gait, Safety, Therapeutic Exercise, Transfers Treatment Duration: October 29, 2018 Frequency: 11 times per week Estimated Hrs Per Day: .25 hour per day (15-30') Patient and/or Family Agrees t: Yes Safety Risks/Education Patient Education: Gait Training, Transfer Techniques, Reviewed Precautions, Correct Positioning, Safety Issues Teaching Recipient: Patient Teaching Methods: Demonstration, Discussion Response to Teaching: Reinforcement Needed Time/GCodes Time In: 1420 Time Out: 1433 Total Billed Treatment Time: 13 Total Billed Treatment 1 visit FA 13' MADHAVI HOOKS PT Oct 27, 2018 14:40
[2018-10-27] MEDS: RT-ALBUTEROL SULF 2.5 MG/3 ML PRE-MIX VIAL INH SCH ×2 (15:27→19:27)
[2018-10-27 16:30] VITALS: BP 187/81
[2018-10-27 20:49] VITALS: BP 130/60
[2018-10-27 23:50] VITALS: BP 158/66
--- NOTE | 2018-10-28 06:54 | Pulmonary Progress Note ---
Subjective Time Seen by a Provider: 14:49 Subjective/Events-last exam No complications noted. Sepsis Event Evaluation Height, Weight, BMI Height: 5'11.00" Weight: 174lbs. 3.0oz. [id number]; 24.3 BMI Method:Stated Exam Exam Vital Signs Date Time Temp Pulse Resp B/P (MAP) Pulse Ox O2 Delivery O2 Flow Rate FiO2 10/27/18 23:50 97.8 72 18 158/66 (96) 94 Room Air 10/27/18 20:49 97 130/60 (83) 10/27/18 20:00 Room Air 10/27/18 19:27 92 Room Air 10/27/18 16:30 99.1 116 18 187/81 (116) 95 Room Air 10/27/18 15:27 92 Room Air 10/27/18 08:00 98.6 78 18 150/78 (102) 94 Room Air I & O 10/28/18 07:00 Intake Total 1210 ml Output Total 1150 ml Balance 60 ml Height & Weight Height: 5'11.00" Weight: 174lbs. 3.0oz. 79.381141fd; 24.3 BMI Method:Stated General Appearance: No Apparent Distress, WD/WN, Chronically ill, Cachetic HEENT: PERRL/EOMI Neck: Normal Inspection Respiratory: Chest Non Tender, Lungs Clear, Normal Breath Sounds, No Accessory Muscle Use, No Respiratory Distress Cardiovascular: Regular Rate, Rhythm, No Edema Capillary Refill: Less Than 3 Seconds Peripheral Pulses: 2+ Dorsalis Pedis (R), 2+ Left Dors-Pedis (L), 2+ Radial Pulses (R), 2+ Radial Pulses (L) Gastrointestinal: non tender, soft Extremity: Normal Inspection, No Pedal Edema Neurologic/Psychiatric: Alert, Oriented x3, Normal Mood/Affect Skin: Warm/Dry Assessment/Plan Assessment/Plan Closed right hip fracture s/p repair Metabolic encephalopathy/hospital psychosis - improved -Risperadol BID Hypoxia, respiratory distress -- resolved -on RA -Using incentive spirometer Prostate cancer hx Anemia -Monitor I am going to sign off please call with any questions or concerns. SYD DAVIS DO Oct 28, 2018 06:54
[2018-10-28] MEDS: RT-ALBUTEROL SULF 2.5 MG/3 ML PRE-MIX VIAL INH SCH ×2 (07:17→19:35)
[2018-10-28 08:00] VITALS: BP 126/65
[2018-10-28] MEDS: IRON SUCROSE 200 MG/10 ML (VENOFER) VIAL IV SCH (08:51)
[2018-10-28] MEDS: diphenhydrAMINE 50 MG/ML INJ (BENADRYL) IV PRN ×2 (08:51→22:16)
[2018-10-28] MEDS: SENNA W/DOCUSATE (SENOKOT S) TABLET PO SCH ×6 (08:51→20:52)
[2018-10-28] MEDS: risperiDONE 1 MG (RisperDAL) TAB PO SCH ×2 (08:51→20:48)
[2018-10-28] MEDS: LACTULOSE SYRUP 10GM/15ML (ENULOSE) 30ML UDC PO SCH ×2 (08:52→20:48)
[2018-10-28] MEDS: POLYETHYLENE GLYCOL 17 GM (MIRALAX) PACK PO SCH ×3 (08:53→20:51)
[2018-10-28] MEDS: BISACODYL 10 MG SUPP (DULCOLAX) PR SCH (09:00)
[2018-10-28 09:38] LABS: BASOPHILS % (AUTO) 1 % (0-10); EOSINOPHILS # (AUTO) 0.4 10^3/uL (0.0-0.3); EOSINOPHILS % (AUTO) 4 % (0-10); HEMATOCRIT 28 % (40-54); LYMPHOCYTES # (AUTO) 1.2 X 10^3 (1.0-4.0); LYMPHOCYTES % (AUTO) 14 % (12-44); MEAN CORPUSCULAR HEMOGLOBIN 30 PG (25-34); MEAN CORPUSCULAR HGB CONC 32 G/DL (32-36); MEAN CORPUSCULAR VOLUME 94 FL (80-99); MEAN PLATELET VOLUME 8.4 FL (7.4-10.4); MONOCYTES # (AUTO) 1.1 X 10^3 (0.0-1.0); MONOCYTES % (AUTO) 13 % (0-12); NEUTROPHILS # (AUTO) 5.8 X 10^3 (1.8-7.8); NEUTROPHILS % (AUTO) 69 % (42-75); PLATELET COUNT 474 10^3/uL (130-400); RED CELL DISTRIBUTION WIDTH 12.6 % (10.0-14.5); WHITE BLOOD COUNT 8.4 10^3/uL (4.3-11.0)
--- NOTE | 2018-10-28 09:49 | Discharge Summary-Hospitalist ---
Diagnosis/Chief Complaint Date of Admission Oct 20, 2018 at 19:50 Date of Discharge Discharge Date: Oct 23, 2018 Discharge Time: 1200 Admission Diagnosis Fracture right hip Discharge Diagnosis (1) Closed right hip fracture Status: Acute (2) History of prostate cancer Status: Chronic (3) Acute blood loss anemia Status: Acute (4) Advanced age Status: Chronic (5) Delirium Status: Acute (6) Hypoxia Status: Acute (7) Constipation Status: Resolved (8) Iron deficiency Status: Acute Discharge Summary Discharge Physical Exam Allergies: Coded Allergies: No Known Drug Allergies (Unverified , 03/31/16) Vitals & I&Os Vital Signs Date Time Temp Pulse Resp B/P (MAP) Pulse Ox O2 Delivery O2 Flow Rate FiO2 10/28/18 16:00 98.8 84 18 140/76 (97) 97 Room Air 10/25/18 19:27 1.00 10/24/18 23:11 98 General Appearance: No Apparent Distress, WD/WN, Chronically ill, Thin Respiratory: Chest Non Tender, Lungs Clear, Normal Breath Sounds, No Accessory Muscle Use, No Respiratory Distress Cardiovascular: Regular Rate, Rhythm, No Edema, No Gallop, No JVD, No Murmur, Normal Peripheral Pulses Neurologic/Psychiatric: Alert, Oriented x3, No Motor/Sensory Deficits, Normal Mood/Affect Hospital Course Was the Problem List Reviewed?: Yes Hospital course: Pt had a lengthy hospital course for 8 days after her suffered a right hip fracture and right rib fractures 8 and 9 after falling off a tractor when he was planting [place]. He suffered severe delirium and hypoxia, required ICU stay with pulmonology critical care management and that cleared over 48hrs in ICU intensive care treatment with BiPAP and Vapotherm, no pneumonia was identified. Overall he did not require any blood transfusions but did require iron transfusions because of the severely low iron level of less than 9 so he did require that supplement when he was hospitalized. Bowels returned back to normal and he was participating in all therapy, still having rib pain but pain management was successful for that. 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 Labs (last 24 hrs) Laboratory Tests 10/28/18 09:30: White Blood Count 8.4, Red Blood Count 2.98L, Hemoglobin 9.0L, Hematocrit 28L, Mean Corpuscular Volume 94, Mean Corpuscular Hemoglobin 30, Mean Corpuscular Hemoglobin Concent 32, Red Cell Distribution Width 12.6, Platelet Count 474H, Mean Platelet Volume 8.4, Neutrophils (%) (Auto) 69, Lymphocytes (%) (Auto) 14, Monocytes (%) (Auto) 13H, Eosinophils (%) (Auto) 4, Basophils (%) (Auto) 1, Neutrophils # (Auto) 5.8, Lymphocytes # (Auto) 1.2, Monocytes # (Auto) 1.1H, Eosinophils # (Auto) 0.4H, Basophils # (Auto) 0.0, Sodium Level 138, Potassium Level 3.6, Chloride Level 103, Carbon Dioxide Level 24, Anion Gap 11, Blood Urea Nitrogen 20H, Creatinine 0.78, Estimat Glomerular Filtration Rate > 60, BUN /Creatinine Ratio 26, Glucose Level 110H, Calcium Level 9.3, Corrected Calcium 9.9, Total Bilirubin 1.1H, Aspartate Amino Transf (AST/SGOT) 45H, Alanine Aminotransferase (ALT/SGPT) 52, Alkaline Phosphatase 80, Total Protein 6.4, Albumin 3.2 Microbiology 10/20/18 MRSA Screen - Final, Complete MRSA not isolated Patient resulted labs reviewed. Pending Labs Discussion & Recommendations Discharge Planning: <30 minutes discharge planning Discharge Home Medications: Active Scripts Active Percocet 10-325 mg Tablet (Oxycodone HCl/Acetaminophen) 1 Each Tablet 1 Tab PO Q4H PRN MDD 3 TABS 7 Days Ferrex 150 (Iron Polysaccharide Complex) 150 Mg Capsule 150 Mg PO BID WITH MEALS Aspirin EC (Aspirin) 325 Mg Tablet. 325 Mg PO DAILY Tramadol HCl 50 Mg Tablet 50 Mg PO Q6HR PRN Senna-Time S Tablet (Sennosides/Docusate Sodium) 1 Each Tablet 1 Ea PO BID Reported Bisacodyl 5 Mg Tablet. 5 Mg PO DAILY PRN Aspirin EC (Aspirin) 325 Mg Tablet. 325 Mg PO BID PRN Instructions to patient/family Please see electronic discharge instructions given to patient. Clinical Quality Measures DVT/VTE Risk/Contraindication: Risk Factor Score Per Nursin RFS Level Per Nursing on Admit: 4+=Very High Problem Qualifiers (1) Closed right hip fracture: Encounter type: initial encounter Qualified Codes: S72.001A - Fracture of unspecified part of neck of right femur, initial encounter for closed fracture (2) Constipation: Constipation type: slow transit constipation Qualified Codes: K59.01 - Slow transit constipation BLAINE MALONEY DO Oct 28, 2018 09:48
[2018-10-28 10:08] LABS: ALANINE AMINOTRANSFERASE 52 U/L (0-55); ALBUMIN 3.2 GM/DL (3.2-4.5); ALKALINE PHOSPHATASE 80 U/L (40-136); BILIRUBIN,TOTAL 1.1 MG/DL (0.1-1.0); BUN/CREATININE RATIO 26; CALCIUM 9.3 MG/DL (8.5-10.1); CARBON DIOXIDE 24 MMOL/L (21-32); CHLORIDE 103 MMOL/L (98-107); CREATININE SERUM 0.78 MG/DL (0.60-1.30); GFR ESTIMATED > 60; GLUCOSE 110 MG/DL (70-105); POTASSIUM 3.6 MMOL/L (3.6-5.0); SODIUM 138 MMOL/L (135-145); TOTAL PROTEIN 6.4 GM/DL (6.4-8.2)
--- NOTE | 2018-10-28 12:12 | Occupational Ther Daily Note ---
OT Current Status-Daily Note Subjective New orders were received for OT. Pt is appropriate to resume treatment plan and goals. Pt sitting in chair, agrees to therapy. Pt states he is having no pain at rest. Pt reports pain in right LE with movement, but does not rate. Mental Status/Objective Patient Orientation: Person, Confused Therapy Code Descriptions/Definitions Functional [place] Measure: 0=Not Assessed/NA 4=Minimal Assistance 1=Total Assistance 5=Supervision or Setup 2=Maximal Assistance 6=Modified [place] 3=Moderate Assistance 7=Complete [place] ADL-Treatment Pt agreeable to sit up in chair and complete sponge bath. Supine to sit with assist for right LE. Sit to stand and transfer to chair with minimal assistance using FWW. Skilled cues for WB status. sponge bath completed while seated in chair. Upper body bathing completed with SBA. Pt able to wash bilateral upper legs and zoë area. Assist required for other areas. Redness noted in groin area , RN was notified. Don pullover shirt with SBA. Pt required assist to start pants over feet. Sit to stand with minimal assistance. Pt required assist to complete pant hike and cues for WB using FWW. Max assist to don socks. Pt brushed teeth and combed hair with SBA while seated. Pt sitting in chair with needs met and chair alarm on after session. Nurse aide was notified. Grooming (FIM): 5 Bathing (FIM): 3 Upper Body (FIM): 5 Lower Body Dressing (FIM): 2 Transfers (B, C, W/C) (FIM): 4 OT Short Term Goals Short Term Goals Transfers (B,C,W/C) (FIM): 4 1=Demonstrate adherence to instructed precautions during ADL tasks. 2=Patient will verbalize/demonstrate understanding of assistive devices/ modifications for ADL. 3=Patient will improve strength/tolerance for activity to enable patient to perform ADL's. OT Fci Goals Fci Goals Time Frame: November 04, 2018 Eating (FIM): 6 Grooming(FIM): 6 Upper Body Dressing(FIM): 5 Lower Body Dressing(FIM): 4 Toilet/Commode Transfer(FIM): 4 Additional Goals: 1-Demonstrate ADL Tasks, 2-Verbalize Understanding, 3- ImproveStrength/Shant 1=Demonstrate adherence to instructed precautions during ADL tasks. 2=Patient will verbalize/demonstrate understanding of assistive devices/ modifications for ADL. 3=Patient will improve strength/tolerance for activity to enable patient to perform ADL's. OT Education/Plan Discharge Recommendations Plan/Recommendations: Continue POC Treatment Plan/Plan of Care Patient would benefit from OT for education, treatment and training to promote independence in ADL's, mobility, safety and/or upper extremity function for ADL' s. Plan of Care: ADL Retraining, Functional Mobility, UE Funct Exercise/Act Treatment Duration: October 29, 2018 Frequency: 5 times per week Estimated Hrs Per Day: .25 hour per day Rehab Potential: Fair Time/GCodes Start Time: 11:30 Stop Time: 12:01 Total Time Billed (hr/min): 31 Billed Treatment Time 1 visit, ADLx2(31minutes) DON AYALA OT Oct 28, 2018 12:12
--- NOTE | 2018-10-28 14:48 | NUR ---
CM/SS. Continued intermittent review of patient progress and status of referral to acute IRF. Patient is insured Medicare replacement [employer] [place] and insurance review process for benefit authorization has delayed patient from moving along the continuum. IRF multimedia coordinator and field underwriter visited with patient today to satisfy specific questions from insurance reviewer, continued to wait this day for a definitive decision. Patient does reside with his spouse Margarita and their daughter Karina, age 47, who is developmentally disabled. Patient shared that Karina requires 24-7 supervision due to her impulsiveness, intellectual debility, and behaviors. Otherwise, patient's spouse and Karina require no ADL assistance. Patient has a son and family and apparently a neighbor who assists them periodically as needed. As earlier noted, patient was fully independent prior to fall with injury. Goal is to maximize his recovery prior to return home. If inpatient rehab is not approved, will send patient home with [facility] PT to further his recuperation under professional care/instruction. Patient PCP is Dr. Fermin Lynn regarding any [facility] services/orders. Addendum: 10/28/18 at 1520 by TRE HIRSCH SS Web Editor contacted [facility] to explore whether they accept [employer] [place] Medicare replacement. They will call back to confirm. Addendum: 10/28/18 at 1526 by TRE HIRSCH SS [facility] does accept the noted insurance if [facility] services are needed.
--- NOTE | 2018-10-28 15:49 | Physical Therapy Daily Note ---
PT Daily Note-Current Subjective Patient on commode pre tx, agrees to PT, has unrated pain in right hip. Patient was supposed to come to rehab today but insurance has not approved yet. Appearance Patient in bed post tx with nurse call, phone, tray, family in the room. Bed alarm on. Mental Status Patient Orientation: Person, Place, Situation Transfers Therapy Code Descriptions/Definitions Functional [place] Measure: 0=Not Assessed/NA 4=Minimal Assistance 1=Total Assistance 5=Supervision or Setup 2=Maximal Assistance 6=Modified [place] 3=Moderate Assistance 7=Complete [place] Therapy Quality Codes: 6 Independent with activity with or without an assistive device 5 Patient requires set up or clean up by helper. Patient completes activity by themselves 4 Supervision or touching assist (CGA). [place] provide cues , steadying assist 3 The helper provides less than half the effort to complete the activity 2 The helper provides more than half the effort to complete the activity 1 Dependent. The helper does all the effort to complete an activity 7 Patient refused to complete or attempt activity 9 The patient did not perform the activity before the current illness or injury 88 Not attempted due to Medical conditions or safety concerns Transfers (B, C, W/C) (FIM): 3 Scootin Rollin Supine to/from Sit: 3 Sit to/from Stand: 4 Bed to/from Chair: 4 Mod assist for sit to supine, min assist to stand and transfers, needs assist guiding the walker and cues for hand placement and positioning. Weight Bearing Right Lower Extremity: Right Touch Toe Bearing Left Lower Extremity: Left Full Weight Bearing Gait Training Gait (FIM): 1 Distance: 5' Gait Level of Assist: 4 Gait Persons Needed: 1 Gait Assistive Device: FWW Patient ambulated from commode to bed, needs cues maintain TTWB, assist guiding walker Exercises Supine Ex: Ankle pumps, Quad Set, Glut sets, Heel Slides, Short Arc Quads, Straight leg raise, Hip abd/add Supine Reps: 10 Treatments bed mobility and transfers, ambulation, LE exercise Assessment Current Status: Fair Progress improved AROM PT Short Term Goals Short Term Goals Time Frame: October 29, 2018 Transfers (B,C,W/C) (FIM): 4 Gait (FIM): 1 Gait Distance Comment: 20' Gait Level of Assist: 4 Gait Assistive Device: FWW PT Plan Problem List Problem List: Activity Tolerance, Functional Strength, Safety, Balance, Gait, Transfer, Bed Mobility, ROM Treatment/Plan Treatment Plan: Continue Plan of Care Treatment Plan: Bed Mobility, Education, Functional Activity Shant, Functional Strength, Gait, Safety, Therapeutic Exercise, Transfers Treatment Duration: October 29, 2018 Frequency: 11 times per week Estimated Hrs Per Day: .25 hour per day (15-30') Patient and/or Family Agrees t: Yes Safety Risks/Education Patient Education: Gait Training, Transfer Techniques, Reviewed Precautions, Correct Positioning, Safety Issues Teaching Recipient: Patient Teaching Methods: Demonstration, Discussion Response to Teaching: Reinforcement Needed Time/GCodes Time In: 1525 Time Out: 1542 Total Billed Treatment Time: 17 Total Billed Treatment 1 visit FA 17' MADHAVI HOOKS PT Oct 28, 2018 15:49
[2018-10-28 16:00] VITALS: BP 140/76
[2018-10-29 00:58] VITALS: BP 142/69
[2018-10-29] MEDS: RT-ALBUTEROL SULF 2.5 MG/3 ML PRE-MIX VIAL INH SCH (06:49)
[2018-10-29 08:50] VITALS: BP 138/74
[2018-10-29] MEDS: LACTULOSE SYRUP 10GM/15ML (ENULOSE) 30ML UDC PO SCH (09:47)
[2018-10-29] MEDS: POLYETHYLENE GLYCOL 17 GM (MIRALAX) PACK PO SCH (09:47)
[2018-10-29] MEDS: SENNA W/DOCUSATE (SENOKOT S) TABLET PO SCH ×2 (09:48)
[2018-10-29] MEDS: risperiDONE 1 MG (RisperDAL) TAB PO SCH (09:54)
[2018-10-29] MEDS: BISACODYL 10 MG SUPP (DULCOLAX) PR SCH (10:01)
--- NOTE | 2018-10-29 10:44 | Progress Note-Hospitalist ---
Subjective HPI/CC On Admission Date Seen by Provider: October 29, 2018 Time Seen by Provider: 09:45 The patient is an 82-year-old former. 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 He has a large tractor and gets up into it on a ramp. There is a handrail but also a gap and he missed it and fell awkwardly landing on his hip. His health has otherwise been good. Subjective/Events-last exam Patient sometimes has been refusing therapy Counseled the patient on the need to participate Noted patient has incontinence so unclear when this started and may indicate cognitive decline also Having difficulty finding words at times but that doesn't appear to be just occurring today Bowels are moving Pain is controlled as long as he doesn't have to move his leg Using incentive spirometer Inpatient rehabilitation was denied now we are pursuing [facility] with insurance to allow in network status His and mentally challenged child are doing pretty well at home without him Checked meds and labs Review of Systems General: Fatigue Genitourinary: Incontinence Musculoskeletal: leg pain Objective Exam Vital Signs Vital Signs Date Time Temp Pulse Resp B/P (MAP) Pulse Ox O2 Delivery O2 Flow Rate FiO2 10/29/18 08:50 99.0 81 18 138/74 (95) 97 Room Air 10/25/18 19:27 1.00 10/24/18 23:11 98 Capillary Refill : Less Than 3 SecondsLess Than 3 Seconds General Appearance: No Apparent Distress, WD/WN, Chronically ill, Thin HEENT: PERRL/EOMI, Normal ENT Inspection Neck: Normal Inspection Respiratory: Chest Non Tender, Lungs Clear, Normal Breath Sounds, No Accessory Muscle Use, No Respiratory Distress Cardiovascular: Regular Rate, Rhythm, No Edema, No Gallop, No JVD, No Murmur, Normal Peripheral Pulses Gastrointestinal: Normal Bowel Sounds, No Organomegaly, No Pulsatile Mass Back: Normal Inspection, No CVA Tenderness Extremity: Normal Capillary Refill, Normal Inspection, Normal Range of Motion, No Calf Tenderness, No Pedal Edema Neurologic/Psychiatric: Alert, Oriented x3, No Motor/Sensory Deficits, Normal Mood/Affect Skin: Normal Color, Warm/Dry Results/Procedures Lab Patient resulted labs reviewed. Assessment/Plan Assessment and Plan Assess & Plan/Chief Complaint Assessment: s/p right hip fracture repair POD # 7 Acute hypoxia resolved Acute delirium resolved h/o prostate cancer Post op anemia acute blood loss Severe iron deficiency acute on chronic so placed on IV iron Urinary incontinence new? Cognitive decline? acute on chronic? Plan: IRF denied so pursuing [facility] swing bed BM regimen to be maintained Monitor for urinary incontinence Diagnosis/Problems Diagnosis/Problems (1) Closed right hip fracture Status: Resolved Qualifiers: Encounter type: initial encounter Qualified Codes: S72.001A - Fracture of unspecified part of neck of right femur, initial encounter for closed fracture Resolution Date/Time: 10/29/18 @ 11:20 (2) History of prostate cancer Status: Chronic (3) Acute blood loss anemia Status: Acute (4) Advanced age Status: Chronic (5) Delirium Status: Acute (6) Hypoxia Status: Acute (7) Constipation Status: Resolved Qualifiers: Constipation type: slow transit constipation Qualified Codes: K59.01 - Slow transit constipation Resolution Date/Time: 10/25/18 @ 16:39 (8) Iron deficiency Status: Acute (9) Incontinence of urine Status: Acute Qualifiers: Urinary Incontinence type: unspecified incontinence Qualified Codes: R32 - Unspecified urinary incontinence Clinical Quality Measures DVT/VTE Risk/Contraindication: Risk Factor Score Per Nursin RFS Level Per Nursing on Admit: 4+=Very High BLAINE MALONEY DO October 29, 2018 10:44
[2018-10-29] MEDS ORDERED: RISP1TAB3 PO (12:29)
[2018-10-29] MEDS ORDERED: ALBU2.5V4 INH (12:29)
[2018-10-29] MEDS ORDERED: SENN-20 PO (12:29)
[2018-10-29] MEDS ORDERED: LACT20SO2 PO (12:29)
[2018-10-29] MEDS ORDERED: POLY17PO31 PO (12:29)
--- NOTE | 2018-10-29 12:34 | Physical Therapy Daily Note ---
PT Daily Note-Current Subjective Pt reports he is agreeable to PT treatment. States he doesn't understand how he has so little energy now, but 3 days after his surgery was feeling pretty good and felt like he could run all over the place Pain Numeric Pain Scale: 0-No Pain Comment: pt reports only some pain when up on LE only Appearance pt sitting up in recliner awake and alert watching TV upon arrival Nurse and doctor present during part of pt's walk and rest At end of tx session, pt sitting up in recliner with chair alarm activated, call light, phone and bedside table within reach Mental Status Patient Orientation: Person, Place, Time, Situation occasionally having difficulty saying what he means and slightly forgetful Transfers Therapy Code Descriptions/Definitions Functional [place] Measure: 0=Not Assessed/NA 4=Minimal Assistance 1=Total Assistance 5=Supervision or Setup 2=Maximal Assistance 6=Modified [place] 3=Moderate Assistance 7=Complete [place] Therapy Quality Codes: 6 Independent with activity with or without an assistive device 5 Patient requires set up or clean up by helper. Patient completes activity by themselves 4 Supervision or touching assist (CGA). [place] provide cues , steadying assist 3 The helper provides less than half the effort to complete the activity 2 The helper provides more than half the effort to complete the activity 1 Dependent. The helper does all the effort to complete an activity 7 Patient refused to complete or attempt activity 9 The patient did not perform the activity before the current illness or injury 88 Not attempted due to Medical conditions or safety concerns Transfers (B, C, W/C) (FIM): 5 Sit to/from Stand: 5 Pt demonstrating correct performance and safe hand placement with all transitions. Able to rise on 1st attempt with RLE forward decreasing WB through it Weight Bearing Right Lower Extremity: Right Touch Toe Bearing Left Lower Extremity: Left Full Weight Bearing Gait Training Gait (FIM): 1 Distance (FIM): 1=up to 49 ft Distance: 46 x2 Gait Level of Assist: 4 Gait Persons Needed: 1 Gait Assistive Device: FWW TTWB RLE, reinstruction required at times for toe touch and not flat foot although pt demo heavy use of UE's on walker during R stance phase. Quickly fatigues, but able to rest and walk again same distance. No LOB, CGA provided Exercises Seated Therapy Exercises: Ankle pumps, Long arc quads, Hip flexion Seated Reps: 20 (pt manually assisting RLE with hip flexion) Treatments transfer, gait, safety, functional mobility, strengthening Assessment Current Status: Good Progress PT Short Term Goals Short Term Goals Time Frame: October 29, 2018 Transfers (B,C,W/C) (FIM): 4 Gait (FIM): 1 Gait Distance Comment: 20' Gait Level of Assist: 4 Gait Assistive Device: FWW PT Plan Treatment/Plan Treatment Plan: Continue Plan of Care Treatment Plan: Bed Mobility, Education, Functional Activity Shant, Functional Strength, Gait, Safety, Therapeutic Exercise, Transfers Treatment Duration: October 29, 2018 Frequency: 11 times per week Estimated Hrs Per Day: .25 hour per day (15-30') Patient and/or Family Agrees t: Yes Safety Risks/Education Patient Education: Gait Training, Transfer Techniques, Reviewed Precautions, Disease Process, Safety Issues Teaching Recipient: Patient Teaching Methods: Demonstration, Discussion Response to Teaching: Verbalize Understanding, Return Demonstration, Reinforcement Needed Time/GCodes Time In: 1105 Time Out: 1130 Total Billed Treatment Time: 25 Total Billed Treatment 1 visit, GT x 1 unit, EX x1 unit ERAN VALENZUELA PTA October 29, 2018 12:34
--- NOTE | 2018-10-29 13:28 | NUR ---
CM/SS, final discharge plan. Swing Bed: Patient discharged from acute to admit to SWB status at [facility]. Son Willis Auguste will transport around 1400, [place] [facility]Isabela Hernandez of anticipated arrival by 1500. Summary: Patient's insurance did not approve IRF. Physician initiated exploration of SWB in patient's hometown of [place], this was authorized by insurance for that level of care. Discussed with patient, he is pleased to be getting closer to home. Spoke with his son by phone in the room with patient so that all questions could be answered to their satisfaction. Discussed SWB benefits and status, and clarified for patient he would be staying in the hospital until therapy was complete. He had continued to think he would go home and come back daily for therapy and was trying to figure out who would transport him. This finalizes the plan for patient's next steps. Goal is home as before once therapy approves.
--- NOTE | 2018-10-29 13:39 | Occupational Ther Daily Note ---
OT Current Status-Daily Note Subjective Pt sitting in chair, agrees to therapy. Pt reports pain in right hip, but does not rate. Pt states son will be picking him up later today to go to [place]. Mental Status/Objective Therapy Code Descriptions/Definitions Functional [place] Measure: 0=Not Assessed/NA 4=Minimal Assistance 1=Total Assistance 5=Supervision or Setup 2=Maximal Assistance 6=Modified [place] 3=Moderate Assistance 7=Complete [place] ADL-Treatment Pt has already bathed and dressed today. Instruction was provided regarding use of adaptive equipment for LE dressing. Pt doffed socks with verbal cues using dressing stick. Donned socks with SBA using sock aid. Pt completed grooming tasks while seated in chair. Pt brushed teeth with set up. Declined further ADLs at this time. Denied further questions or concerns. Pt sitting in chair with needs met and chair alarm in place after session. Education OT Patient Education: Modified ADL techniques Teaching Recipient: Patient Teaching Methods: Demonstration, Discussion Response to Teaching: Return Demonstration, Reinforcement Needed OT Short Term Goals Short Term Goals Transfers (B,C,W/C) (FIM): 4 1=Demonstrate adherence to instructed precautions during ADL tasks. 2=Patient will verbalize/demonstrate understanding of assistive devices/ modifications for ADL. 3=Patient will improve strength/tolerance for activity to enable patient to perform ADL's. OT Senior Living Goals Senior Living Goals Time Frame: November 04, 2018 Eating (FIM): 6 Grooming(FIM): 6 Upper Body Dressing(FIM): 5 Lower Body Dressing(FIM): 4 Toilet/Commode Transfer(FIM): 4 Additional Goals: 1-Demonstrate ADL Tasks, 2-Verbalize Understanding, 3- ImproveStrength/Shant 1=Demonstrate adherence to instructed precautions during ADL tasks. 2=Patient will verbalize/demonstrate understanding of assistive devices/ modifications for ADL. 3=Patient will improve strength/tolerance for activity to enable patient to perform ADL's. OT Education/Plan Discharge Recommendations Plan/Recommendations: Continue POC Treatment Plan/Plan of Care Patient would benefit from OT for education, treatment and training to promote independence in ADL's, mobility, safety and/or upper extremity function for ADL' s. Plan of Care: ADL Retraining, Functional Mobility, UE Funct Exercise/Act Treatment Duration: October 29, 2018 Frequency: 5 times per week Estimated Hrs Per Day: .25 hour per day Rehab Potential: Fair Time/GCodes Start Time: 13:01 Stop Time: 13:20 Total Time Billed (hr/min): 19 Billed Treatment Time 1 visit, ADL(19minutes) DON AYALA OT October 29, 2018 13:39
== END 2018-10-29 15:35 | disposition swing bed (61) | DRG 480 ==
LOC: EDUNIT# 17:28 → ER 17:29 → 4TH 19:50 → ICU 10-23 17:01 → 4TH 10-25 10:35 → EDPENDDISDT 10-29 12:00
PROVIDERS: ADMIT Internal Medicine; ATTEND Internal Medicine
PROC: 0QS636Z Reposition Right Upper Femur with Intramedullary Internal Fixation Device, Percutaneous Approach (ICD-10-PCS; principal; 2018-10-21 16:14)
DX: S72.141A Displaced intertrochanteric fracture of right femur, initial encounter for closed fracture (principal); M16.11 Unilateral primary osteoarthritis, right hip; S22.41XA Multiple fractures of ribs, right side, initial encounter for closed fracture; D62 Acute posthemorrhagic anemia; G93.41 Metabolic encephalopathy; R50.9 Fever, unspecified; K59.01 Slow transit constipation; D50.9 Iron deficiency anemia, unspecified; R09.02 Hypoxemia; R06.03 Acute respiratory distress; Z90.79 Acquired absence of other genital organ(s); Z85.46 Personal history of malignant neoplasm of prostate; Z92.3 Personal history of irradiation; V84.4XXA Person injured while boarding or alighting from special agricultural vehicle, initial encounter
CPT/HCPCS: 36415; 71045; 71101; 80048; 80053; 82805; 83540; 83735; 83880; 84100; 85025; 85027; 87081; 94640; 94660; 94664; 94760; 96374; 96376

== ENCOUNTER → 2019-06-25 | Outpatient (CLI) | payer MEDICARE ==
[~2019-06-25] MED LIST changes: +ALBU2.5V4 INH; +ASPI325T32 PO; +BISA5TAB8 PO; +DIATRIZOATE 30% 300 ML (CYSTOGRAFIN) VIAL UR ONE; +IRON150C3 PO; +LACT20SO2 PO; +OXYC1TAB12 PO; +POLY17PO31 PO; +RISP1TAB3 PO; +SENN-20 PO
--- NOTE | 2019-06-25 13:55 | Diagnostic Imaging Report ---
INDICATION: Left renal stone. TIME OF EXAM: 12:47 p.m. FINDINGS: A calcific density overlies the lower pole of the left kidney, approximately 7 mm in size and most suggestive of a renal calculus. No other urinary tract calculi are detected. Bowel gas pattern is nonobstructed. There are degenerative changes in the right hip as well as postsurgical changes. IMPRESSION: Probable left renal calculus. No other significant abnormality is detected. Dictated by: Dictated on workstation # [id number]
--- NOTE | 2019-06-25 13:59 | Diagnostic Imaging Report ---
INDICATION: Urethral stricture. The patient was brought to the fluoroscopy suite, placed on the table in the supine position. 15 mL of Cystografin contrast was injected into the penile urethra in a retrograde fashion. Fluoroscopic spot films were obtained. A total of 29 seconds of fluoroscopic time was utilized. There is normal opacification of the penile and bulbar urethra. No stricture or filling defect is seen. Normal narrowing at the membranous urethra. We were unable to reflux contrast into the posterior urethra. IMPRESSION: Unremarkable urethrogram. Dictated by: Dictated on workstation # [id number]
== END ==
LOC: RAD 12:29
PROVIDERS: ATTEND Urology
DX: N20.0 Calculus of kidney (principal); N35.919 Unspecified urethral stricture, male, unspecified site
CPT/HCPCS: 74018; 74450

== ENCOUNTER → 2019-09-17 | Outpatient (CLI) | payer OTHER ==
[~2019-09-17] MED LIST changes: -DIATRIZOATE 30% 300 ML (CYSTOGRAFIN) VIAL UR ONE; +NITR-65 PO; +TMSL.4C PO; -TRAM50TA2 PO; +TRAM50TA3 PO; +TRM50T PO
--- NOTE | 2019-09-17 15:47 | Diagnostic Imaging Report ---
EXAM: Abdomen/KUB, 1 view. INDICATION: Renal stones. COMPARISON: 06/25/2019. FINDINGS: Left ureteral stent is new since the prior exam. Densities suspicious for renal stones in the region of the lower pole the left kidney measuring up to 0.7 and 0.6 cm. These have not definitely changed since the prior exam. Stable calcifications in the right abdomen and pelvis. Postoperative changes in the right hip, partially visualized. No acute osseous findings. Nonspecific bowel gas pattern. There is a large amount of stool throughout much of the colon and rectum. IMPRESSION: 1. New left ureteral stent. 2. Calcifications in the region of the lower pole of the left kidney, measuring 0.7 and 0.6 cm. These have not definitively changed since the prior exam. 3. Large amount of stool throughout much of the colon or rectum may represent a degree of constipation. Dictated by: Dictated on workstation # [id number]
== END ==
LOC: RAD 14:43
PROVIDERS: ATTEND Urology
DX: N20.1 Calculus of ureter (principal)
CPT/HCPCS: 74018

== ENCOUNTER 2019-09-21 05:44 | Outpatient (CLI) | payer MEDICARE ==
[~2019-09-21] VITALS: Ht 180 cm; Wt 72.7 kg
[~2019-09-21 05:44] MED LIST changes: -NITR-65 PO; -TMSL.4C PO; -TRAM50TA3 PO
[2019-09-21] MEDS ORDERED: TMSL.4C PO (14:45)
== END 2019-09-21 15:01 | disposition home or self-care (01) ==
LOC: PREOP 05:44
PROVIDERS: ATTEND Urology
DX: Z01.818 Encounter for other preprocedural examination (principal)

== ENCOUNTER 2019-09-23 06:40 | Day surgery (SDC) | payer MEDICARE ==
[2019-09-23] VITALS (9 sets, daily range): BP systolic 2–143; BP diastolic 65–89
[~2019-09-23] VITALS: Ht 180 cm; Wt 68.2 kg
[~2019-09-23 06:40] MED LIST changes: +TMSL.4C PO
[2019-09-23] MEDS ORDERED: LACTATED RINGERS 1,000 ML IV PRN (06:47)
[2019-09-23] MEDS ORDERED: cefTRIAXone FOR IV USE 1,000 MG in WATER (STERILE) FOR INJECTION 10 ML IV ONE (07:00)
[2019-09-23] MEDS ORDERED: CATHETER FLUSH 10 ML SYR IV PRN (07:00)
--- NOTE | 2019-09-23 07:04 | Progress Note-Pre Operative ---
Pre-Operative Progress Note H&P Reviewed The H&P was reviewed, patient examined and no changes noted. Date Seen by Provider: Sep 23, 2019 Time Seen by Provider: 07:04 Date H&P Reviewed: Sep 23, 2019 Time H&P Reviewed: 07:04 Pre-Operative Diagnosis: LT URETERAL/RENAL STONE ROLF MCCRACKEN MD Sep 23, 2019 07:04
--- NOTE | 2019-09-23 07:08 | Progress Note-Post Operative ---
Post-Operative Progess Note Surgeon (s)/Technical Solutions Consultant (s) Surgeon ROLF MCCRACKEN MD Technical Solutions Consultant: NONE Pre-Operative Diagnosis LT URETERAL/RENAL STONE Post-Operative Diagnosis SAME Procedure & Operative Findings Date of Procedure 09/23/19 Procedure Performed/Findings LT ESWL Anesthesia Type GENERAL Estimated Blood Loss Estimated blood loss (mL): NONE Specimens/Packing Specimens Removed NONE Packing: NONE ROLF MCCRACKEN MD Sep 23, 2019 07:08
--- NOTE | 2019-09-23 07:10 | Discharge Inst-Urology ---
Discharge Inst-Urology Reconcile Patient Problems Problems Reviewed?: Yes Final Diagnosis LT URETERAL/RENAL STONE Patient Instructions/Follow Up Plan/Assessment/Instructions Please make appointment to been seen in office in 1 week. KUB prior to it KUB on way home Post ESWL instructions Increase oral fluids for 48 hours and then as needed. Diet and Activity as tolerated. If questions or concerns contact your physician Or seek help at emergency department. ROLF MCCRACKEN MD Sep 23, 2019 07:10
[2019-09-23] MEDS ORDERED: MIDAZOLAM 2 MG/2 ML (VERSED) VIAL ONE (07:45)
[2019-09-23] MEDS ORDERED: fentaNYL INJECTION 100 MCG/2 ML AMP ONE (07:45)
[2019-09-23] MEDS ORDERED: SUCCINYLCHOLINE INJ 100 MG/5 ML SYR ONE (08:14)
[2019-09-23] MEDS ORDERED: proPOfol 200 MG/20 ML (DIPRIVAN) VIAL IV ONE (08:14)
[2019-09-23] MEDS ORDERED: SEVOFLURANE (ULTANE) 15 ML INHAL SOLN ONE (08:14)
[2019-09-23] MEDS ORDERED: ONDANSETRON 4 MG/2 ML (SDV) Z0FRAN ONE (08:14)
[2019-09-23] MEDS ORDERED: LIDOCAINE PF 2% 5 ML (XYLOCAINE) VIAL ONE (08:14)
[2019-09-23] MEDS ORDERED: FUROSEMIDE 40 MG/4 ML INJ (LASIX) ONE (08:29)
[2019-09-23] MEDS ORDERED: KETOROLAC 30 MG/ML VIAL ONE (08:29)
[2019-09-23] MEDS ORDERED: TMSL.4C PO (09:48)
[2019-09-23] MEDS ORDERED: TRAM50TA3 PO (09:48)
[2019-09-23] MEDS ORDERED: NITR-65 PO (09:48)
--- NOTE | 2019-09-23 10:48 | Diagnostic Imaging Report ---
INDICATION: Left ureteral stone. TECHNIQUE/COMPARISON: An AP view of the abdomen was obtained and compared to 09/17/2019. FINDINGS: Multiple calcifications projecting over the lower pole of the left kidney have remained stable. The left double-J nephroureteral stent is also in stable position. There is no evidence of migration of stone along the course of the stent. Surgical and degenerative findings are seen in the right hip with diffuse lumbar spondylosis. Overall, there has been no significant change. IMPRESSION: Left nephrolithiasis with stable appearance of the left double-J nephroureteral stent. Dictated by: Dictated on workstation # [id number]
--- NOTE | 2019-09-23 10:54 | Diagnostic Imaging Report ---
INDICATION: Status post lithotripsy. TIME OF EXAMINATION: 10:37 AM. COMPARISON: Correlation is made with the prior radiograph from earlier this same day. FINDINGS: The left-sided nephroureteral stent remains in place. There appears to have been fragmentation of the calculi in the lower pole of the left kidney since this morning status post lithotripsy. No definite calculi along the course of the stent within the left ureter are identified. The bowel gas pattern is unremarkable. Postop changes of the right hip are noted. IMPRESSION: Fragmentation of left renal calculi since earlier this morning, status post lithotripsy. Dictated by: Dictated on workstation # [id number]
--- NOTE | 2019-09-23 11:40 | Anesthesia-General Post-Op ---
General Patient Condition Mental Status/LOC: Same as Preop Cardiovascular: Satisfactory Nausea/Vomiting: Absent Respiratory: Satisfactory Pain: Controlled Complications: Absent Post Op Complications Complications None Follow Up Care/Instructions Patient Instructions None needed. Anesthesia/Patient Condition Patient Condition Patient is doing well, no complaints, stable vital signs, no apparent adverse anesthesia problems. No complications reported per nursing. JASPREET DIGGS CRNA Sep 23, 2019 11:40
--- NOTE | 2019-09-23 12:29 | OPERATIVE REPORT ---
DATE OF SERVICE: 09/23/2019 PREOPERATIVE DIAGNOSIS: Left ureteral and renal stones. POSTOPERATIVE DIAGNOSIS: Left ureteral and renal stones. OPERATION PERFORMED: Left ESWL. SURGEON: Tito Mccracken MD ANESTHESIA: General. COMPLICATIONS: None. DESCRIPTION OF PROCEDURE: Under satisfactory general anesthesia, the patient in supine position on the ESWL table, the left ureteral and renal stones, first one had moved down to the level of the other one which was better for the patient. We went ahead and localized each one at a time and delivered 1500 shocks to each one of them with complete fragmentation and very hard to see the stone. The patient received 40 mg of Lasix and 30 mg of Toradol IV at the end of the procedure. He tolerated the procedure and anesthesia well and was sent to recovery room in stable condition. Job ID: [id number] DocumentID: [id number] Dictated Date: 09/23/2019 08:31:29 Charge Account Clerk Date: 09/23/2019 12:28:28 Dictated By: TITO MCCRACKEN MD
== END 2019-09-23 11:11 | disposition home or self-care (01) ==
LOC: SDC 06:40
PROVIDERS: ATTEND Urology
DX: N20.2 Calculus of kidney with calculus of ureter (principal); Z11.2 Encounter for screening for other bacterial diseases; Z85.46 Personal history of malignant neoplasm of prostate
CPT/HCPCS: 74018; 87081

== ENCOUNTER → 2019-10-01 | Outpatient (CLI) | payer MEDICARE ==
[~2019-10-01] MED LIST changes: +NITR-65 PO; +TRAM50TA3 PO
--- NOTE | 2019-10-01 10:19 | Diagnostic Imaging Report ---
EXAMINATION: Abdominal radiographs, single supine view. DATE: October 01, 2019. CLINICAL INDICATION: 83-year-old male, left ureteral stone status post shockwave lithotripsy. COMPARISON: September 23, 2019. COMMENTS: There is a left ureteral stent. There is a 2 to 3 mm calcification projecting to the left side of the inferior aspect of the stent which is not well seen on the comparison exam. This is difficult to definitively localize although potentially could reflect a stone in the urinary bladder. Previously noted foci of calcification projecting over the expected location of the left kidney are less prominent on current exam. The upper abdomen is incompletely imaged. There are no grossly distended gas-filled segments of bowel. This included the visualized hardware in the right proximal femur. IMPRESSION: 1. Redemonstrated left-sided ureteral stent. 2. New 2 to 3 mm calcification to the left of midline at the level of the distal aspect of the stent which could be within the urinary bladder although is difficult to definitively localize. 3. Previously noted foci of calcification overlying the left kidney on comparison exam are not well seen currently. Dictated by: Dictated on workstation # [id number]
== END ==
LOC: LAB 09:32
PROVIDERS: ATTEND Urology
DX: N20.0 Calculus of kidney (principal); Z98.890 Other specified postprocedural states
CPT/HCPCS: 74018